=== PATIENT | male | born 1950 | race Caucasian/White ===

== ENCOUNTER 2021-06-16 01:04 | Day surgery (SDC) | payer MEDICARE, OTHER, SELFPAY ==
[2021-05-30 14:22] VITALS: BMI 29.7
--- NOTE | 2021-06-15 13:24 | PM.HPGS ---
History of Present Illness History of Present Illness Consent: Risks, benefits, and alternatives have been discussed and questions answered. Patient agrees to proceed with procedure. Chief complaint: hx of polyps Narrative: Hunter Reid is a 70 year old male Here for colon cancer screening. He had 5 polyps removed about 3 years ago. Review of Systems Review of Systems: All systems reviewed & are unremarkable except as noted in HPI and below PMFSH Social History Social History Smoking status: Never smoker Living arrangements: with family Spiritual care concerns: No Meds Home Medications and Allergies Home Medications Medication Instructions Recorded Confirmed Type cyanocobalamin (vitamin B-12) 2,000 mcg PO DAILY 05/30/21 06/16/21 History [Vitamin B-12] folic acid 5 mg PO QAM 05/30/21 06/16/21 History gabapentin 600 mg PO TID 05/30/21 06/16/21 History metformin 1,000 mg PO BID 05/30/21 06/16/21 History methotrexate sodium 25 mg PO WEEKLY 05/30/21 06/16/21 History multivitamin 1 tablet PO DAILY 05/30/21 06/16/21 History pantoprazole 40 mg PO DAILY 05/30/21 06/16/21 History prochlorperazine maleate 10 mg PO TID PRN 05/30/21 06/16/21 History vit A-vit C-vit [id number] [Eye 1 tablet PO DAILY 05/30/21 06/16/21 History Vitamin and Minerals] Allergies Allergy/AdvReac Type Severity Reaction Status Date / Time amoxicillin Allergy Unknown Nausea and Verified 06/16/21 06:40 Vomiting clavulanic acid Allergy Unknown Nausea and Verified 06/16/21 06:40 Vomiting Penicillins Allergy Unknown Unknown Verified 06/16/21 06:40 Exam Resp: Auscultation: clear to auscultation bilaterally Cardio: Rate: regular rate Rhythm: regular rhythm GI: GI Palp: Yes Soft to palpation and No Tenderness to palpation present (GI) Assessment and Plan Assessment and plan (1) Colon cancer screening: Code(s): Z12.11 - Encounter for screening for malignant neoplasm of colon Status: Acute Assessment and Plan: Colonoscopy with possible biopsy or polypectomy or cautery or injection of substances.
[2021-06-16 06:41] VITALS: BP 135/77; PULSE 80; RESP 17; TEMP 36.1; O2SAT 95; BMI 30.1
[2021-06-16 06:41] LABS: Glucose Point of Care 114 mg/dl (65-105)
[2021-06-16] MEDS: LACTATED RINGERS 1,000 ML 150 ML IV CONT (06:45)
--- NOTE | 2021-06-16 07:25 | WPDANESEPPF ---
Anes - Initial Pre Proc Eval Procedure: Operation Date: 06/16/21 07:30 Proposed Procedures p Screening Colonoscopy - Manuel Herrmann MD Date/Time: 06/16/21 07:25 Surgeon: Manuel Herrmann MD Pre Op Diagnosis: hx of polyps Patient Data Age: 70 Gender: M Height: 1.8 m Weight: 97.9 kg Last Vital Signs Temp 97 F L 06/16/21 06:41 Pulse 80 06/16/21 06:41 Resp 17 06/16/21 06:41 BP 135/77 06/16/21 06:41 Pulse Ox 95 06/16/21 06:41 Allergies Allergy/AdvReac Type Severity Reaction Status Date / Time amoxicillin Allergy Unknown Nausea and Verified 06/16/21 06:40 Vomiting clavulanic acid Allergy Unknown Nausea and Verified 06/16/21 06:40 Vomiting Penicillins Allergy Unknown Unknown Verified 06/16/21 06:40 Home Medications Medication Instructions Recorded Confirmed Type cyanocobalamin (vitamin B-12) 2,000 mcg PO DAILY 05/30/21 06/16/21 History [Vitamin B-12] folic acid 5 mg PO QAM 05/30/21 06/16/21 History gabapentin 600 mg PO TID 05/30/21 06/16/21 History metformin 1,000 mg PO BID 05/30/21 06/16/21 History methotrexate sodium 25 mg PO WEEKLY 05/30/21 06/16/21 History multivitamin 1 tablet PO DAILY 05/30/21 06/16/21 History pantoprazole 40 mg PO DAILY 05/30/21 06/16/21 History prochlorperazine maleate 10 mg PO TID PRN 05/30/21 06/16/21 History vit A-vit C-vit [id number] [Eye 1 tablet PO DAILY 05/30/21 06/16/21 History Vitamin and Minerals] Laboratory Tests 06/16/21 06:37 POC Capillary Glucose 114 mg/dl H mg/dl (65-105) Patient hx anesthesia problems: none Family hx anesthesia problems: none Results Review: All pre-operative results and documents have been reviewed as part of the pre-operative evaluation. PMFSH Social History Social History Smoking status: Never smoker Living arrangements: with family Spiritual care concerns: No Anes - Eval Final PreProcedure Day of Procedure 06/16/21 07:25 Patient weight: obese Heart: regular rate and rhythm Lungs: clear to auscultation Airway: Mallampati scale class II Neurological: alert and oriented Last oral intake: >/= 8 hours ASA classification: III Emergent: no Anesthetic plan: proceed Anesthesia type and monitoring: general GIVS and standard monitoring Results Review: All pre-operative results and documents have been reviewed as part of the pre-operative evaluation. Informed Consent: The patient's anesthetic plan and its attendant risks and benefits were discussed with the patient/family/POA. Questions were solicited and answers provided to the satisfaction of the patient/family/POA.
[2021-06-16 07:56] VITALS: BP 129/85; PULSE 78; RESP 17; O2SAT 97
[2021-06-16 08:00] VITALS: BP 132/86; PULSE 77; RESP 19; O2SAT 98
[2021-06-16 08:10] VITALS: BP 140/90; PULSE 73; RESP 15; O2SAT 95
== END 2021-06-16 08:33 | disposition home or self-care (01) ==
PROVIDERS: PCP Internal Medicine; Visit Provider Internal Medicine Gastroenterology
PROC: 0DJD8ZZ Inspection of Lower Intestinal Tract, Via Natural or Artificial Opening Endoscopic (ICD-10-PCS; CPT 45378; principal; 2021-06-16 07:30)
DX: Z12.11 Encounter for screening for malignant neoplasm of colon (principal); Z86.010 Personal history of colon polyps; Z79.84 Long term (current) use of oral hypoglycemic drugs; E66.9 Obesity, unspecified; Z68.30 Body mass index [BMI] 30.0-30.9, adult
CPT/HCPCS: G0105; 82948; J2704; J7120

== ENCOUNTER 2023-01-09 14:14 | Outpatient (CLI) | payer MEDICARE, OTHER, SELFPAY ==
[2023-01-09 14:31] LABS: Basophils Percent Auto 0.4 % (0.2-1.2); Eosinophils Absolute Auto 0.1 K/mm3 (0-0.3); Eosinophils Percent Auto 2.1 % (0-4.4); Hematocrit 37.1 % (42.0-52.0); Hemoglobin 12.7 g/dL (14.0-18.0); Immature Granulocyte Absolute 0.02 K/mm3 (0.00-0.031); Immature Granulocyte Percent A 0.3 % (0-0.5); Lymphocytes Absolute Auto 1.24 K/mm3 (0.9-3.2); Lymphocytes Percent Auto 18.5 % (18.3-44.2); Mean Corpuscular HGB Conc 34.2 g/dl (32-36); Mean Corpuscular Hemoglobin 31.8 pg (26-34); Monocytes Absolute Auto 0.4 K/mm3 (0.1-0.6); Monocytes Percent Auto 6.4 % (2.6-8.5); Neutrophils Absolute Auto 4.9 K/mm3 (1.3-6.7); Neutrophils Percent Auto 72.3 % (45.5-73.1); Platelet Count Result 89 k/mm3 (150-375); Red Blood Count 3.99 M/mm3 (4.6-6.20); Red Cell Distribution Width 13.4 % (11.5-14.5); White Blood Count 6.7 K/mm3 (4.5-10.0)
[2023-01-09 14:59] LABS: Alanine Aminotransferase 52 U/L (6-50); Albumin Level 4.3 g/dL (3.5-5.1); Alkaline Phosphatase 163 U/L (38-126); Anion Gap 8 mmol/L (8-16); Aspartate Amino Transferase 39 U/L (17-59); Bilirubin,Total 0.7 mg/dL (0.2-1.3); Blood Urea Nitrogen 11 mg/dL (9-20); Calcium 8.8 mg/dL (8.4-10.2); Carbon Dioxide 29 mmol/L (22-30); Chloride 98 mmol/L (98-107); Estimated Glomerular Filt Rate > 60; Glucose 303 mg/dL (65-110); Potassium 3.9 mmol/L (3.4-5.0); Sodium 135 mmol/L (137-145)
[2023-01-09 15:16] LABS: Iron 69 ug/dL (49-181)
[2023-01-09 15:26] LABS: Percent Iron Saturation 20 % (20-50)
[2023-01-09 16:04] LABS: Folic Acid > 20.0 ng/mL (2.76->20)
== END 2023-01-09 14:15 | disposition home or self-care (01) ==
LOC: ANHLAB 14:18
PROVIDERS: PCP Internal Medicine; Visit Provider Internal Medicine Hematology & Oncology
DX: D64.9 Anemia, unspecified (principal); D68.59 Other primary thrombophilia
CPT/HCPCS: 36415; 80053; 82607; 82728; 82746; 83540; 83550; 85025; 86023

== ENCOUNTER 2023-01-29 09:05 | Outpatient (CLI) | payer MEDICARE, OTHER, SELFPAY ==
--- NOTE | ~2023-01-29 | US_ITS ---
US abdomen complete DATE: 01/29/2023 09:49 INDICATION: Pancytopenia TECHNIQUE: Real-time imaging and Doppler analysis of the abdomen COMPARISON: 04/13/2018 right upper quadrant abdominal ultrasound examination FINDINGS: Hepatic steatosis. No hepatic space-occupying mass lesion is evident. Normal hepatopedal po rtal venous flow direction. No evidence of gallstones or gallbladder wall thickening. Negative sonographic Bautista's sign. There is splenomegaly, the spleen measuring up to 14 cm dimension. Approximately 2 cm upper pole left renal cyst. The kidneys are otherwise unremarkable. No hydronephro sis. Normal caliber of the abdominal aorta. The inferior vena cava is unremarkable. IMPRESSION: Splenomegaly Hepatic steatosis 2 cm left renal cyst Reviewed, dictated and finalized at [facility]. Reviewed, dictated and finalized at [facility].
== END 2023-01-29 09:06 | disposition home or self-care (01) ==
PROVIDERS: PCP Internal Medicine; Visit Provider Internal Medicine Hematology & Oncology
DX: D69.59 Other secondary thrombocytopenia (principal); R16.1 Splenomegaly, not elsewhere classified; K76.0 Fatty (change of) liver, not elsewhere classified; N28.1 Cyst of kidney, acquired
CPT/HCPCS: 76700

== ENCOUNTER 2023-08-12 14:25 | Outpatient (CLI) | payer MEDICARE, OTHER, SELFPAY ==
[2023-08-12 14:41] LABS: Basophils Percent Auto 0.3 % (0.2-1.2); Eosinophils Absolute Auto 0.1 K/mm3 (0-0.3); Eosinophils Percent Auto 1.5 % (0-4.4); Hematocrit 37.3 % (42.0-52.0); Hemoglobin 12.5 g/dL (14.0-18.0); Immature Granulocyte Absolute 0.03 K/mm3 (0.00-0.031); Immature Granulocyte Percent A 0.5 % (0-0.5); Lymphocytes Percent Auto 19.4 % (18.3-44.2); Mean Corpuscular HGB Conc 33.5 g/dl (32-36); Mean Corpuscular Hemoglobin 31.6 pg (26-34); Mean Corpuscular Volume 94.2 fl (80-100); Mean Platelet Volume 8.8 fl (7.4-10.4); Monocytes Absolute Auto 0.4 K/mm3 (0.1-0.6); Monocytes Percent Auto 5.8 % (2.6-8.5); Neutrophils Absolute Auto 4.5 K/mm3 (1.3-6.7); Neutrophils Percent Auto 72.5 % (45.5-73.1); Platelet Count Result 91 k/mm3 (150-375); Red Blood Count 3.96 M/mm3 (4.6-6.20); Red Cell Distribution Width 13.2 % (11.5-14.5); White Blood Count 6.2 K/mm3 (4.5-10.0)
[2023-08-12 14:47] LABS: Blood Urea Nitrogen 9 mg/dL (8-26); Carbon Dioxide 29 mmol/L (22-30); Chloride 99 mmol/L (98-109); Estimated Glomerular Filt Rate > 60; Glucose 181 mg/dL (70-105); Ionized Calcium (POC) 1.24 mmol/L (1.11-1.31); Potassium 3.7 mmol/L (3.5-4.9); Sodium 140 mmol/L (138-146)
[2023-08-12 19:33] LABS: Alanine Aminotransferase 35 U/L (6-50); Albumin Level 4.2 g/dL (3.5-5.1); Alkaline Phosphatase 125 U/L (38-126); Anion Gap 5 mmol/L (8-16); Aspartate Amino Transferase 30 U/L (17-59); Bilirubin,Total 0.7 mg/dL (0.2-1.3); Blood Urea Nitrogen 10 mg/dL (9-20); Calcium 9.2 mg/dL (8.4-10.2); Carbon Dioxide 30 mmol/L (22-30); Chloride 104 mmol/L (98-107); Estimated Glomerular Filt Rate > 60; Glucose 181 mg/dL (65-110); Potassium 3.9 mmol/L (3.4-5.0); Sodium 139 mmol/L (137-145)
== END 2023-08-12 14:26 | disposition home or self-care (01) ==
LOC: ANHLAB 14:28
PROVIDERS: PCP Internal Medicine; Visit Provider Internal Medicine Hematology & Oncology
DX: D69.59 Other secondary thrombocytopenia (principal)
CPT/HCPCS: 36415; 80047; 80053; 85025

== ENCOUNTER 2023-11-07 06:02 | Day surgery (SDC) | payer MEDICARE, OTHER, SELFPAY ==
[2023-09-09 13:36] VITALS: BMI 29.1
[2023-11-07 06:56] LABS: Glucose Point of Care 130 mg/dl (65-105)
--- NOTE | 2023-11-07 07:09 | PM.HPGS ---
History of Present Illness History of Present Illness Consent: Risks, benefits, and alternatives have been discussed and questions answered. Patient agrees to proceed with procedure. Chief complaint: Personal history of colonic polyps Narrative: Hunter Reid is a 73 year old male colonoscopy. Patient has a history of colon polyps identified in 2019. Patient reports his current weight appetite and bowel movements are normal. Patient denies abdominal pain. He has had no bleeding. Family history noncontributory. Past medical history is significant for diabetes and fatty liver. Review of Systems Review of Systems: Review of systems is noncontributory. [facility] Social History Social History Smoking status: Never smoker Alcohol intake: never Substance use: never Substance use type: does not use Living arrangements: with family Spiritual care concerns: No Meds Home Medications and Allergies Home Medications Medication Instructions Recorded Confirmed Type cyanocobalamin (vitamin B-12) 2,000 mcg PO DAILY 05/30/21 11/07/23 History 2,000 mcg tablet,extended release (Vitamin B-12 ER) folic acid 1 mg tablet 5 mg PO QAM 05/30/21 11/07/23 History gabapentin 600 mg tablet 600 mg PO TID 05/30/21 11/07/23 History metformin 1,000 mg tablet 1,000 mg PO BID 05/30/21 11/07/23 History multivitamin 1 tablet PO DAILY 05/30/21 11/07/23 History pantoprazole 40 mg tablet,delayed 40 mg PO DAILY 05/30/21 11/07/23 History release vit A 7,160 unit-vit C 113 mg-vit 1 tablet PO DAILY 05/30/21 11/07/23 History E 100 wvbp-qrmi-npbbas tablet insulin glargine 100 unit/mL 10 unit subcut QPM 09/05/23 11/07/23 History subcutaneous solution (Lantus U-100 Insulin) losartan 50 mg tablet 50 mg PO DAILY 09/05/23 11/07/23 History atorvastatin 20 mg tablet 20 mg PO DAILY 10/25/23 11/07/23 History sodium,potassium,mag sulfates 17.5 See Rx Instructions PO .COMPLEX 10/25/23 11/07/23 Rx gram-3.13 gram-1.6 gram oral soln #354 mL (Suprep Bowel Prep Kit) Allergies Allergy/AdvReac Type Severity Reaction Status Date / Time amoxicillin Allergy Unknown Nausea and Verified 11/07/23 06:26 Vomiting clavulanic acid Allergy Unknown Nausea and Verified 11/07/23 06:26 Vomiting Penicillins Allergy Unknown Unknown Verified 11/07/23 06:26 Exam Narrative: Physical exam reveals patient to be alert. Vital signs stable. HEENT exam is unremarkable. Patient is anicteric. Lungs are clear to auscultation and percussion. Heart is without murmur or extra sounds. Abdomen bowel sounds are present soft nontender with no organomegaly. Digital external rectal exam normal. Assessment and Plan Assessment and plan (1) Personal history of colonic polyps: Code(s): Z86.010 - Personal history of colonic polyps Status: Acute Assessment and Plan: Patient has a prior history of colon polyps performed by Dr. Staples in 2019. Plan for surveillance colonoscopy now and consider this at 5 year intervals.
--- NOTE | 2023-11-07 07:23 | WPDANESEPPF ---
Anes - Initial Pre Proc Eval Procedure: Operation Date: 11/07/23 07:30 Proposed Procedures p Diagnostic Colonoscopy - Geovanny Simon MD Date/Time: 11/07/23 07:23 Surgeon: Geovanny Simon MD Pre Op Diagnosis: Personal history of colonic polyps Patient Data Age: 73 Gender: M Height: 1.8 m Weight: 95.5 kg Allergies Allergy/AdvReac Type Severity Reaction Status Date / Time amoxicillin Allergy Unknown Nausea and Verified 11/07/23 06:26 Vomiting clavulanic acid Allergy Unknown Nausea and Verified 11/07/23 06:26 Vomiting Penicillins Allergy Unknown Unknown Verified 11/07/23 06:26 Home Medications Medication Instructions Recorded Confirmed Type cyanocobalamin (vitamin B-12) 2,000 mcg PO DAILY 05/30/21 11/07/23 History 2,000 mcg tablet,extended release (Vitamin B-12 ER) folic acid 1 mg tablet 5 mg PO QAM 05/30/21 11/07/23 History gabapentin 600 mg tablet 600 mg PO TID 05/30/21 11/07/23 History metformin 1,000 mg tablet 1,000 mg PO BID 05/30/21 11/07/23 History multivitamin 1 tablet PO DAILY 05/30/21 11/07/23 History pantoprazole 40 mg tablet,delayed 40 mg PO DAILY 05/30/21 11/07/23 History release vit A 7,160 unit-vit C 113 mg-vit 1 tablet PO DAILY 05/30/21 11/07/23 History E 100 yqyh-haal-jmnotx tablet insulin glargine 100 unit/mL 10 unit subcut QPM 09/05/23 11/07/23 History subcutaneous solution (Lantus U-100 Insulin) losartan 50 mg tablet 50 mg PO DAILY 09/05/23 11/07/23 History atorvastatin 20 mg tablet 20 mg PO DAILY 10/25/23 11/07/23 History sodium,potassium,mag sulfates 17.5 See Rx Instructions PO .COMPLEX 10/25/23 11/07/23 Rx gram-3.13 gram-1.6 gram oral soln #354 mL (Suprep Bowel Prep Kit) Laboratory Tests 11/07/23 06:49 POC Capillary Glucose 130 H mg/dl (65-105) Patient hx anesthesia problems: none Family hx anesthesia problems: none Results Review: All pre-operative results and documents have been reviewed as part of the pre-operative evaluation. [facility] Social History Social History Smoking status: Never smoker Alcohol intake: never Substance use: never Substance use type: does not use Living arrangements: with family Spiritual care concerns: No Anes - Eval Final PreProcedure Day of Procedure 11/07/23 07:23 Patient weight: overweight Heart: regular rate and rhythm Lungs: clear to auscultation Airway: Mallampati scale class II Neurological: alert and oriented Last oral intake: >/= 8 hours ASA classification: III Emergent: no Anesthetic plan: proceed Anesthesia type and monitoring: general GIVS and standard monitoring Results Review: All pre-operative results and documents have been reviewed as part of the pre-operative evaluation. Informed Consent: The patient's anesthetic plan and its attendant risks and benefits were discussed with the patient/family/POA. Questions were solicited and answers provided to the satisfaction of the patient/family/POA.
[2023-11-07] MEDS: LACTATED RINGERS 1,000 ML 150 ML IV CONT (07:27)
[2023-11-07 07:28] VITALS: BP 120/78; PULSE 77; RESP 20; TEMP 36.2; O2SAT 97
[2023-11-07 07:56] VITALS: BP 123/68; PULSE 83; RESP 20; O2SAT 98
[2023-11-07 08:06] VITALS: BP 101/66; PULSE 77; RESP 18; O2SAT 96
[2023-11-07 08:16] VITALS: BP 110/72; PULSE 71; RESP 18; O2SAT 95
--- NOTE | 2023-11-07 09:12 | WPDANESPN ---
Anes - Prog Note Post-Op Date/Time: 11/07/23 09:12 Cardiovascular status: normal Respiratory status: normal Airway patency: baseline Mental status: baseline Post-Op hydration status: normal Vital Signs: Last Vital Signs Temp 36.2 C L 11/07/23 07:28 Pulse 71 11/07/23 08:16 Resp 18 11/07/23 08:16 BP 110/72 11/07/23 08:16 Pulse Ox 95 11/07/23 08:16 O2 Del Method Room Air 11/07/23 08:16 Pain Score (VAS): 0 I/O: Intake & Output 11/06/23 11/07/23 11/07/23 23:59 07:59 15:59 Intake Total 350 50 Balance 350 50 11/07/23 06:49 POC Capillary Glucose 130 H Patient Feedback: Patient satisfied with anesthetic care.
== END 2023-11-07 08:35 | disposition home or self-care (01) ==
PROVIDERS: PCP Internal Medicine; Visit Provider Internal Medicine Gastroenterology
PROC: 0DJD8ZZ Inspection of Lower Intestinal Tract, Via Natural or Artificial Opening Endoscopic (ICD-10-PCS; CPT 45378; principal; 2023-11-07 07:30)
DX: Z86.010 Personal history of colon polyps (principal); D12.0 Benign neoplasm of cecum; K64.8 Other hemorrhoids
CPT/HCPCS: 45385

== ENCOUNTER 2023-11-07 07:00 | Outpatient (NON) | payer MEDICARE, OTHER, SELFPAY | END 2023-11-07 07:01 | disposition home or self-care (01) | PROVIDERS: PCP Internal Medicine; Visit Provider Internal Medicine Gastroenterology | DX: D12.0 Benign neoplasm of cecum (principal) | CPT/HCPCS: 88305 ==

== ENCOUNTER 2023-12-01 13:59 | Emergency (ER) | payer MEDICARE, OTHER, SELFPAY ==
--- NOTE | ~2023-12-01 | XR_ITS ---
EXAMINATION: XR chest 1V Exam Date/Time: 12/01/2023 16:34 CDT HISTORY: cp Comparison: None. RESULT: Lines, tubes, and devices: None. Lungs and pleura: Clear. Cardiomediastinal silhouette: Unremarkable. Other: No acute osseous or upper abdominal finding. IMPRESSION: No acute cardiopulmonary process. Reviewed, dictated and finalized at [facility].
--- NOTE | ~2023-12-01 | CT_ITS ---
EXAMINATION: CT abdomen pelvis w con DATE: 12/01/2023 16:39 INDICATION: rectal bleeding TECHNIQUE: Computed tomography (CT) of the abdomen and pelvis was performed with 100 mL Omnipaque-350 intravenous contrast. Automated exposure control and iterative reconstruction technique were employe d. The dose-length product was 1056.88 mGy-cm. COMPARISON: Ultrasound abdomen 01/29/2023, report only. FINDINGS: Lower thorax: 8 mm pleural-based right lower lobe pulmonary nodule. Liver: Diffusely low-density parenchyma. Biliary/Gallbladder: Partially contracted gallbladder. Gallstone. No inflammatory changes. No bile du ct dilation. Pancreas: No mass or duct dilation. Spleen: Enlarged. Multiple splenic cysts or hemangiomas. Adrenals:No mass. Kidneys: No suspicious mass, obstructing stone, or hydronephrosis. Simple left midpole cyst. GI tract: No small or large bowel dilation. Normal appendix. Mesentery/Peritoneum: No ascites, mass, or free air. Retroperitoneum: No mass. Atherosclerotic abdominal aortic and/or arterial calcifications. Pelvis: Moderate urinary bladder wall thickening. Prostatomegaly.. Soft Tissues: Soft tissues and body wall unremarkable. Bones: No acute osseous finding. IMPRESSION: 8 mm right lower lobe pulmonary nodule, recommend follow-up low-dose noncontrast CT of the chest in 6 -12 months. Hepatic steatosis. Splenomegaly. Cystitis versus bladder wall thickening from chronic outlet obstruction. Reviewed, dictated and finalized at [facility]. IMPRESSION: 8 mm right lower lobe pulmonary nodule, recommend follow-up low-dose noncontras t CT of the chest in 6-12 months. Hepatic steatosis. Splenomegaly. Cystitis versus bladder wall thickening from chronic outlet obstruction.
[2023-12-01 14:01] VITALS: BP 125/77; PULSE 79; RESP 16; TEMP 36.2; O2SAT 98
--- NOTE | 2023-12-01 14:05 | ECG_ITS ---
Measurements Intervals [place] Rate: 79 P: 61 [place]: 176 QRS: 42 QRSD: 90 T: 78 QT: 347 QTc: 382 Interpretive Statements SINUS RHYTHM INDETERMINATE AXIS NORMAL ECG SEE SCANNED COPY FOR SIGNATURE MTDD
[2023-12-01 15:15] VITALS: BP 121/70; PULSE 80; RESP 18; O2SAT 96
--- NOTE | 2023-12-01 15:51 | ED.GENADULT ---
HPI - General Adult General Chief complaint: GI Bleed Stated complaint: rectal bleeding Time Seen by Provider: 12/01/23 15:05 History of Present Illness HPI narrative: 73-year-old male presenting to the emergency department for evaluation of bright red blood per rectum. Patient states that he does have a history of internal hemorrhoids. Patient had a scope by Dr. Clement are November 06. Patient states last weekend he did have a few episodes bright red blood per rectum but the symptoms resolved on Saturday. Patient had no bleeding throughout the week. Today patient had a bowel movement and passed some blood, patient had a 2nd bowel movement where he passed stool and passed a small amount of blood. Since being in the emergency department patient states he has not passed any blood. After having some lightheaded and dizziness after the 1st episode patient had onset of some substernal chest pain that lasted approximately 10-12 minutes. At this time patient denies any abdominal pain denies any chest pain. Patient has no active rectal bleeding. Related Data Home Medications Medication Instructions Recorded Confirmed cyanocobalamin (vitamin B-12) 2,000 mcg PO DAILY 05/30/21 11/07/23 2,000 mcg tablet,extended release (Vitamin B-12 ER) folic acid 1 mg tablet 5 mg PO QAM 05/30/21 11/07/23 gabapentin 600 mg tablet 600 mg PO TID 05/30/21 11/07/23 metformin 1,000 mg tablet 1,000 mg PO BID 05/30/21 11/07/23 multivitamin 1 tablet PO DAILY 05/30/21 11/07/23 pantoprazole 40 mg tablet,delayed 40 mg PO DAILY 05/30/21 11/07/23 release vit A 7,160 unit-vit C 113 mg-vit 1 tablet PO DAILY 05/30/21 11/07/23 E 100 mmnp-uivc-xcmsik tablet insulin glargine 100 unit/mL 10 unit subcut QPM 09/05/23 11/07/23 subcutaneous solution (Lantus U-100 Insulin) losartan 50 mg tablet 50 mg PO DAILY 09/05/23 11/07/23 atorvastatin 20 mg tablet 20 mg PO DAILY 10/25/23 11/07/23 Allergies Allergy/AdvReac Type Severity Reaction Status Date / Time amoxicillin Allergy Unknown Nausea and Verified 12/01/23 15:21 Vomiting clavulanic acid Allergy Unknown Nausea and Verified 12/01/23 15:21 Vomiting Penicillins Allergy Unknown Unknown Verified 12/01/23 15:21 Review of Systems Review of Systems: All systems reviewed & are unremarkable except as noted in HPI and below PMFSH Social History Social History Smoking status: Never smoker Alcohol intake: never Substance use: never Substance use type: does not use Living arrangements: with family Spiritual care concerns: No Exam Narrative: APPEARANCE: Well appearing, no pain, no distress, well-nourished. HEAD: normocephalic, atraumatic. EYES: PERRLA/EOMI, conjunctivae clear. NOSE: Normal no drainage EARS:TMS clear with good light reflex. THROAT: Pharynx clear, no exudate. NECK: Supple. No adenopathy, no masses. RESPIRATORY: Airway patent, respirations nonlabored. Clear to auscultation bilaterally, no rales, rhonchi, wheezing. CARDIOVASCULAR: Regular rate and rhythm without murmurs rubs or gallops. ABDOMINAL: Soft, nontender, nondistended, normal bowel sounds MUSCULOSKELETAL: Moves all extremities. Strength/ROM intact, No edema, No calf tenderness. Rectal: Small amount of blood on the digital rectal exam NEURO: Alert. Cranial nerves II through XII intact. Good gait. Good coordination SKIN: Warm, dry. Normal Color PSYCHIATRIC: Normal affect/mood. Course Vital Signs Vital signs: Vital Signs Temperature 97.1 F L 12/01/23 14:01 Pulse Rate 79 12/01/23 14:01 Respiratory Rate 16 12/01/23 14:01 Blood Pressure 125/77 12/01/23 14:01 Pulse Oximetry 98 12/01/23 14:01 Temperature 97.1 F L 12/01/23 14:01 Pulse Rate 73 12/01/23 18:42 Respiratory Rate 13 12/01/23 18:42 Blood Pressure 134/86 12/01/23 18:42 Pulse Oximetry 98 12/01/23 18:42 Medical Decision Making MDM Narrative Medical decis
[2023-12-01 16:02] LABS: Basophils Percent Auto 0.5 % (0.2-1.2); Eosinophils Absolute Auto 0.2 K/mm3 (0-0.3); Eosinophils Percent Auto 3.6 % (0-4.4); Hemoglobin 12.3 g/dL (14.0-18.0); Immature Granulocyte Absolute 0.01 K/mm3 (0.00-0.031); Immature Granulocyte Percent A 0.2 % (0-0.5); Immature Platelet Fraction Pct 1.9 % (0.9-11.2); Lymphocytes Percent Auto 19.9 % (18.3-44.2); Mean Corpuscular HGB Conc 34.2 g/dl (32-36); Mean Corpuscular Hemoglobin 32.2 pg (26-34); Mean Corpuscular Volume 94.2 fl (80-100); Mean Platelet Volume 9.1 fl (7.4-10.4); Monocytes Absolute Auto 0.4 K/mm3 (0.1-0.6); Monocytes Percent Auto 6.7 % (2.6-8.5); Neutrophils Absolute Auto 3.8 K/mm3 (1.3-6.7); Neutrophils Percent Auto 69.1 % (45.5-73.1); Platelet Count Result 114 k/mm3 (150-375); Red Blood Count 3.82 M/mm3 (4.6-6.20); Red Cell Distribution Width 13.4 % (11.5-14.5); White Blood Count 5.5 K/mm3 (4.5-10.0)
[2023-12-01 16:13] LABS: Lactic Acid Reflex 1.6 mmol/L (0.7-2.0)
[2023-12-01 16:15] LABS: Alanine Aminotransferase 46 U/L (6-50); Alkaline Phosphatase 115 U/L (38-126); Anion Gap 6 mmol/L (4-12); Aspartate Amino Transferase 33 U/L (17-59); Bilirubin,Total 0.6 mg/dL (0.2-1.3); Blood Urea Nitrogen 12 mg/dL (9-20); Calcium 8.9 mg/dL (8.4-10.2); Carbon Dioxide 26 mmol/L (22-30); Chloride 104 mmol/L (98-107); Estimated CRCL calculation 62 ml/min; Estimated Glomerular Filt Rate > 60; Glucose 198 mg/dL (65-110); Lipase 120 U/L (23-300); Potassium 3.7 mmol/L (3.4-5.0); Sodium 136 mmol/L (137-145)
[2023-12-01 16:20] LABS: Appearance Urine Clear (Clear); Bilirubin Urine Negative (Negative); Blood Urine Negative (Negative); Color Urine Yellow (Yellow); Glucose Urine UA Negative (Negative); Ketones Urine Negative (Negative); Leukocyte Esterase Ur Negative LEU/UL (Negative); Nitrate Urine Negative (Negative); Protein Urine Negative (Negative); Specific Grav Ur 1.009 (1.001-1.035); Urobilinogen Urine 0.2 mg/dL (<2.0); pH Urine 5.5 (5.0-9.0)
[2023-12-01 16:22] LABS: Add Urine Microscopic? NO
--- NOTE | 2023-12-01 16:24 | PC.NURSE ---
pt to CT scan via stretcher at this time
[2023-12-01 16:26] LABS: Troponin I < 0.012 ng/mL (0.000-0.034)
[2023-12-01 16:46] LABS: INR 1.1; Partial Thromboplastin Time 32.6 Seconds (22.3-36.8); Prothrombin Time 15.1 Seconds (11.1-14.7)
[2023-12-01 17:26] VITALS: BP 121/78; PULSE 73; RESP 15; O2SAT 98
[2023-12-01 18:07] VITALS: BP 125/78; PULSE 73; RESP 12; O2SAT 99
[2023-12-01 18:42] VITALS: BP 134/86; PULSE 73; RESP 13; O2SAT 98
== END 2023-12-01 18:47 | disposition home or self-care (01) ==
PROVIDERS: Emergency Provider Emergency Medicine; PCP Internal Medicine
DX: K62.5 Hemorrhage of anus and rectum (principal); E11.9 Type 2 diabetes mellitus without complications; Z79.4 Long term (current) use of insulin; Z79.84 Long term (current) use of oral hypoglycemic drugs; R91.1 Solitary pulmonary nodule; R16.1 Splenomegaly, not elsewhere classified; K76.0 Fatty (change of) liver, not elsewhere classified; R93.41 Abnormal radiologic findings on diagnostic imaging of renal pelvis, ureter, or bladder
CPT/HCPCS: 36415; 71045; 74177; 80053; 81003; 83605; 83690; 84484; 85025; 85055; 85610; 85730; 86850; 86900; 86901; 93005; 99284; Q9967

== ENCOUNTER 2023-12-16 14:54 | Outpatient (CLI) | payer MEDICARE, OTHER, SELFPAY ==
--- NOTE | ~2023-12-16 | CT_ITS ---
EXAMINATION:CT diagnostic chest wo con DATE: 12/16/2023 15:13 INDICATION: Solitary pulmonary nodule. TECHNIQUE: Computed tomography (CT) of the chest was performed without intravenous contrast. Automate d exposure control and iterative reconstruction technique were employed. The dose-length product (DLP ) was 233.90 mGy-cm. COMPARISON: CT abdomen and pelvis 12/01/2023 FINDINGS: There is mild scarring at the lung apices. There is a 7 mm nodule in right upper lobe. Ther e is a 7 mm nodule in right lower lobe. No pleural effusion. The heart size is normal. There are chauncey nary artery calcifications. No pericardial effusion. There is mild bilateral gynecomastia. There is e ctasia of ascending aorta measuring 4.1 cm. There are gallstones in the gallbladder, which is normal in size. There is mild thoracic spondylosis. IMPRESSION: 1. Pulmonary nodules measuring up to 7 mm, probably benign. Noncontrast low-dose chest CT is recommen ded in 6 months. Reviewed, dictated and finalized at [facility]. IMPRESSION: 1. Pulmonary nodules measuring up to 7 mm, probably benign. Noncontrast low-dos e chest CT is recommended in 6 months.
== END 2023-12-16 14:55 | disposition home or self-care (01) ==
LOC: ANHIMG 14:55
PROVIDERS: PCP Internal Medicine; Visit Provider Physician Assistant
DX: R91.1 Solitary pulmonary nodule (principal)
CPT/HCPCS: 71250

== ENCOUNTER 2024-05-29 10:04 | Outpatient (CLI) | payer MEDICARE, SELFPAY ==
--- NOTE | ~2024-05-29 | CT_ITS ---
CT Scan of the Chest without Contrast: Clinical Indication: Pulmonary nodule Technique: Contiguous sections were acquired throughout the chest without intravenous contrast. Dose reduction technique was used on this scan by utilizing automated exposure control and iterative recon struction technique. The dose-length product (DLP) was 364.12 mGy-cm. COMPARISON: 12/16/2023 Findings: There is no evidence of any significant mediastinal, hilar or axillary lymphadenopathy. Coronary kassy ry calcifications are present. There is no evidence of pleural or pericardial effusion. Stable 8 mm round nodule at the medial right upper lobe (axial image 45). Stable 3 mm right lower lob e pulmonary nodule (axial image 81). Stable 8 mm right basilar pulmonary nodule (axial image 103). Images through the upper abdomen reveal small calcified gallstone. Impression: Stable pulmonary nodules, as detailed above. Reviewed, dictated and finalized at location . Impression: Stable pulmonary nodules, as detailed above.
== END 2024-05-29 10:05 | disposition home or self-care (01) ==
LOC: ANHIMG 10:06
PROVIDERS: PCP Internal Medicine; Visit Provider Physician Assistant
DX: R91.1 Solitary pulmonary nodule (principal)
CPT/HCPCS: 71250

== ENCOUNTER 2024-08-07 10:05 | Outpatient (CLI) | payer MEDICARE, SELFPAY ==
[2024-08-07 10:29] LABS: Basophils Percent Auto 0.3 % (0.2-1.2); Eosinophils Absolute Auto 0.2 K/mm3 (0-0.3); Eosinophils Percent Auto 2.4 % (0-4.4); Hematocrit 38.4 % (42.0-52.0); Hemoglobin 12.8 g/dL (14.0-18.0); Immature Granulocyte Absolute 0.02 K/mm3 (0.00-0.031); Immature Granulocyte Percent A 0.3 % (0-0.5); Immature Platelet Fraction Pct 2.3 % (0.9-11.2); Lymphocytes Absolute Auto 1.26 K/mm3 (0.9-3.2); Lymphocytes Percent Auto 19.8 % (18.3-44.2); Mean Corpuscular HGB Conc 33.3 g/dl (32-36); Monocytes Absolute Auto 0.4 K/mm3 (0.1-0.6); Monocytes Percent Auto 5.8 % (2.6-8.5); Neutrophils Absolute Auto 4.5 K/mm3 (1.3-6.7); Neutrophils Percent Auto 71.4 % (45.5-73.1); Platelet Count Result 127 k/mm3 (150-375); Red Cell Distribution Width 13.7 % (11.5-14.5); White Blood Count 6.4 K/mm3 (4.5-10.0)
[2024-08-07 10:31] LABS: Blood Urea Nitrogen 14 mg/dL (8-26); Carbon Dioxide 27 mmol/L (22-30); Chloride 100 mmol/L (98-109); Estimated Glomerular Filt Rate > 60; Glucose 196 mg/dL (70-105); Ionized Calcium (POC) 1.21 mmol/L (1.11-1.31); Potassium 3.5 mmol/L (3.5-4.9); Sodium 141 mmol/L (138-146)
--- OUTSIDE RECORDS SUMMARY | 2024-08-07 12:28 | XMS_ITS | Continuity of Care Document ---
Author Organization [place] - [facility], [facility] [place] Address [address] [place] [address] Assessment No assessment recorded. Plan of Treatment Reminders Order Date Submit Date Provider Last Modified By Organization Details Last Modified Time Details Appointments None recorded . Lab lipid panel, serum 06/04/20 [email or web address] [facility], 2022 Shashank Mueller, [facility] [address], [place], [address], 4 16:46:11 CMP, serum or plasma 06/04/20 [email or web address] [facility], 2022 Shashank Mueller, [address], [place], [address], 4 16:46:11 HbA1c (hemoglo bin A1c), blood 024 06/04/20 [facility], 2022 Shashank Mueller, [facility] [address], [place], [address], 4 16:46:11 CBC w/ auto diff 024 06/04/20 24 [email or web address] [facility], 2022 Shashank Mueller, [address], [place], [address], 4 16:46:11 Referral None recorded . Procedures None recorded . Surgeries None recorded . Imaging None recorded . Medication Orders None recorded . Patient TargetsNo targets recorded. Patient Instructions Encounter Date Encounter Id Patient Instructions Last Modified By Organization Details Last Modified Time 06/04/2024 [id number] Follow-up for hypertension, hyperlipidemia, type 2 diabetes, GERD as well as obesity class one. Check blood work consistent with a hemoglobin A1c, CMP, CBC, lipid panel. Continue on current Rx follow-up in four months Follow Up: 4 Months Approximate Date: 10/02/2024 Portions of the record may have been created with voice recognition software. Occasional wrong-word or ? [id number]? substitutions may have occurred due to the inherent limitations of voice recognition software. Read the chart carefully and recognize, using context, where substitutions have occurred. [place] [id number] Not available 06/04/2024 16:48:26 Reason for Referral None Reported. Results Created Date Observation Date Name Description Value Unit Range Abnormal Flag Note LastModifiedBy Organization Detail LastModifiedTime 05/29/20 24 05/29/2024 CT, chest , w/o contr ast No observ ation record ed. [email or web address] [facility] [address] [facility] [address], [place], [address], 05/29/2024 13:28:13 Result Notes None recorded. Problems Name Problem SNOMED Code Status Onset Date Resolution Date Notes Provider Name and Address Organization Details Recorded Time Acute bronchitis 75435975 Active 2021 Not Available [facility] 4 05:07:49 Paronychia of toe of right foot 1334068615865 9102 Active 2020 Not Available [facility] 4 05:07:49 Avulsion of toenail of right foot 2535785040048 9102 Active 2020 Not Available [facility] 4 05:07:49 Insomnia 715041158 Active Not Available [facility] 4 05:07:49 Neuropathy due to diabetes mellitus 591382496 Active 2019 Not Available [facility] 4 05:07:49 Gastroesop hageal reflux disease 164261965 Active Not Available [facility] 4 05:07:49 Pure hyperchole sterolemia 654627089 Active 2017 Not Available [facility] 4 05:07:49 Subungual hematoma 595290509 Active 2020 Not Available [facility] 4 05:07:49 Low back pain 973719732 Active 2021 Not Available [facility] 4 05:07:49 Chest pain 44554145 Active Not Available [facility] 4 05:07:49 Type 2 diabetes mellitus without complicati on 316128614 Active 2018 Not Available [facility] 4 05:07:49 Subdural hemorrhage 19767776 Active 2018 Not Available [facility] 4 05:07:49 History of polyp of colon 318789858 Active Not Available [facility] 4 05:07:49 Uncontroll ed type 2 diabetes mellitus 733717831 Active 2018 Not Available [facility] 4 05:07:49 Essential hypertensi on 51219390 Active 2021 Not Available [facility] 4 05:07:49 Acute maxillary sinusitis 73165721 Active Not Available [facility] 4 05:07:49 Rheumatoid arthritis 94653478 Active 2017 Not Available [facility] 4 05:07:49 Sleep apnea 27661633 Active Not Available [facility] 4 05:07:49 Obstructiv e sleep apnea syndrome 56793591 Active 2018 Not Available [facility] 4 05:07:49 Neck pain 22798628 Active 2021 Not Available [facility] 4 05:07:49 Tinea pedis 0202108 Active 2022 Not Available [facility] 4 05:07:49 Steatosis of liver 332455545 Active 2022 Not Available [facility] 4 05:07:49 Nonalcohol ic steatohepa titis 273834742 Active 2022 Not Available [facility] 4 05:07:49 Acute sinusitis 62256972 Active 2022 Not Available [facility] 4 19:56:21 Disorder of prostate 50949773 Active 2023 Rodolfo Topete MD [address] [place] [address], [place] [address], [place], [address] , [facility] [employer] 4 16:24:07 Obese class I 7257621518717 07 Active 2023 Rodolfo Topete MD [address] [facility], [facility] [address], [place], [address] , [facility] [employer] [facility] 4 16:48:02 Problem Notes None recorded. Procedures Surgical History Date Name Laterality Status Provider Name and Address Organization Details Recorded Time 3 Medicare Wellness CPT Code, subsequent completed Kat Phelps RN [facility] [employer] [facility] 12/21/2022 15:36:33 3 Advanced Care Planning completed Kat Phelps RN [facility] [employer] [facility] 12/21/2022 15:38:14 Eye Surgery completed Not Available [facility] 10/24/2022 14:45:40 Imaging Results None recorded. Procedure Notes None recorded. Medical Equipment None Reported. Allergies Allergen ID Allergen Name Allergen Category Reaction Reaction Severity Criticality Documentation Date Start Date Code Code System Note Provider Name and Address Organization Details Recorded Time 59483 Medicinal product containin g penicilli n and acting as antibacte rial agent (product) medicatio n anaphylax is severe Not available 10/24/20222016 26791 05 SNOMED recei kvng from [place] son for tooth infec tion, went back to [place] with swell ing and was given a shot . Not Available [facility] 3 14:51:22 39477 metformin medicatio n diarrhea Not available [facility] 02/12/2023 6809 RxNorm Misti Ward CMA null, [facility] [employer] 3 14:04:46 Medications Name Sig Start Date Stop Date Status Note LastModified by Organization Details LastModified Time losartan 50 mg tablet TAKE 1 TABLET BY MOUTH EVERY DAY active Not Available Not Available No t Available cyclobenzap rine 10 mg tablet TAKE 1 TABLET BY MOUTH EVERY 8 HOURS NEEDED .CUT IN HALF IF TO SEDATING active Not Available Not Available No t Available amoxicillin 500 mg capsule Take 1 capsule 3 times a day by oral route for 10 days. 01/08 completed Not Available Not Available Not Available methocarbam ol 500 mg tablet 10/28 completed Not Available Not Available Not Available metformin 500 mg tablet TAKE 2 TABLETS BY MOUTH TWICE DAILY 2022 active Not Available Not Available Not Avai lable Tylenol-Cod eine #4 300 mg-60 mg tablet Take 1 tablet every 6 hours by oral route. 01/08 completed Not Available Not Available Not Available promethazin e-DM 6.25 mg-15 mg/5 mL oral syrup TAKE 5 ML BY MOUTH FOUR TIMES DAILY 03/30 completed Not Available Not Available Not Available gabapentin 600 mg tablet TAKE 1 TABLET BY MOUTH THREE TIMES DAILY active Not Available Not Available No t Available doxycycline hyclate 100 mg capsule TAKE 1 CAPSULE BY MOUTH TWICE DAILY FOR 7 DAYS 12/08 completed Not Available Not Available Not Available atorvastati n 20 mg tablet TAKE 1 TABLET BY MOUTH EVERY DAY active Not Available Not Available No t Available clindamycin HCl 300 mg capsule TAKE ONE CAPSULE BY MOUTH THREE TIMES DAILY UNTIL ALL TAKEN 03/01 completed Not Available Not Available Not Available azithromyci n 250 mg tablet TAKE 2 TABLETS (500 MG) BY ORAL ROUTE ONCE DAILY FOR 1 DAY THEN 1 TABLET (250 MG) BY ORAL ROUTE ONCE DAILY FOR 4 DAYS active Not Available Not Available No t Available alprazolam 1 mg tablet 08/11 completed Not Available Not Available Not Available fluconazole 150 mg tablet TAKE 1 TABLET BY MOUTH EVERY WEEK active Not Available Not Available No t Available benzonatate 200 mg capsule TAKE 1 CAPSULE BY MOUTH THREE TIMES DAILY NEEDED FOR COUGH 02/05 completed Not Available Not Available Not Available hydrocodone 5 mg-acetamin ophen 325 mg tablet Take 1 tablet every 6 hours by oral route. 01/06 completed Not Available Not Available Not Available prednisone 20 mg tablet TAKE 1 TABLET BY MOUTH EVERY DAY FOR 5 DAYS 03/30 completed Not Available Not Available Not Available fluorouraci l 5 % topical cream APPLY TO NOSE BID FOR 14 DAYS active Not Available Not Available No t Available prednisone 5 mg tablet TK 1 T PO BID 04/15 completed Not Available Not Available Not Available clindamycin HCl 150 mg capsule Take 1 capsule every 6 hours by oral route. 01/24 completed Not Available Not Available Not Available cyanocobala min (vit B-12) 1,000 mcg tablet Take 1 tablet every day by oral route. 2021 active Not Available Not Available Not Avai lable folic acid 5 mg capsule Take 1 capsule by oral route. 04/13 completed Not Available Not Available Not Available Nexium 40 mg capsule,del ayed release Take 1 capsule every day by oral route. 2012 active Not Available Not Available Not Avai lable prochlorper azine maleate 10 mg tablet TAKE 1 TABLET BY MOUTH THREE TIMES DAILY NEEDED active Not Available Not Available No t Available Tamiflu 75 mg capsule Take 1 capsule every day by oral route for 10 days. 02/18 completed Not Available Not Available Not Available sulfamethox azole 800 mg-trimetho prim 160 mg tablet TAKE 1 TABLET BY MOUTH TWICE DAILY FOR 10 DAYS 10/28 completed Not Available Not Available Not Available hydrocodone 10 mg-acetamin ophen 325 mg tablet TAKE 1 TO 2 TABLETS BY MOUTH EVERY 4 TO 6 HOURS NEEDED FOR PAIN active Not Available Not Available No t Available leflunomide 20 mg tablet TAKE 1 TABLET BY MOUTH EVERY MORNING 10/30 completed Not Available Not Available Not Available tramadol 50 mg tablet Take 1 tablet every 6 hours by oral route. active Not Available Not Available No t Available triamcinolo ne acetonide 0.1 % topical cream APPLY TWICE DAILY TO RASH ON BACK UP TO 2 WEEKS active Not Available Not Available No t Available glimepiride 2 mg tablet TAKE 1 TABLET BY MOUTH EVERY DAY TWICE A DAY 2023 active Not Available Not Available Not Avai lable pantoprazol e 20 mg tablet,loree yed release TK 1 T PO QD 10/28 completed Not Available Not Available Not Available ciclopirox 8 % topical solution APPLY TO TOENAIL EVERY NIGHT AT BEDTIME active Not Available Not Available No t Available potassium 99 mg tablet Take 1 tablet twice a day by oral route. 10/28 completed Not Available Not Available Not Available potassium chloride ER 20 mEq tablet,exte nded release(par t/cryst) 10/28 completed Not Available Not Available Not Available methotrexat e sodium 2.5 mg tablet TK 10 TS PO Q WEEK 06/26 completed Not Available Not Available Not Available prednisone 1 mg tablet 01/13 completed Not Available Not Available Not Available meclizine 25 mg tablet 01/24 completed Not Available Not Available Not Available baclofen 10 mg tablet Take 1 tablet 4 times a day by oral route. active Not Available Not Available No t Available benzonatate 100 mg capsule TAKE 1 CAPSULE BY MOUTH EVERY 8 HOURS NEEDED 03/30 completed Not Available Not Available Not Available glipizide ER 2.5 mg tablet, extended release 24 hr Take 1 tablet every day by oral route. 12/28 completed Not Available Not Available Not Available hydrocodone 7.5 mg-acetamin ophen 325 mg tablet One every six hours PRN for pain 01/06 completed Not Available Not Available Not Available cephalexin 500 mg capsule 01/13 completed Not Available Not Available Not Available pantoprazol e 40 mg tablet,loree yed release TAKE 1 TABLET BY MOUTH EVERY DAY active Not Available Not Available No t Available erythromyci n 5 mg/gram (0.5 %) eye ointment active Not Available Not Available Not Available metformin 1,000 mg tablet TAKE 1 TABLET BY MOUTH TWICE DAILY 12/28 completed Not Available Not Available Not Available clotrimazol e-betametha sone 1 %-0.05 % topical cream APPLY TOPICALLY TO THE AFFECTED AND SURROUNDI NG AREAS TWICE DAILY IN THE MORNING AND IN THE EVENING FOR 2 WEEKS active Not Available Not Available No t Available glimepiride 4 mg tablet Take 1 tablet twice a day by oral route. 01/25 completed Not Available Not Available Not Available lidocaine 5 % topical patch active Not Available Not Available Not Available gabapentin 300 mg capsule Take 1 capsule twice a day by oral route. 01/06 completed Not Available Not Available Not Available cephalexin 500 mg tablet 01/13 completed Not Available Not Available Not Available folic acid 1 mg tablet TAKE 5 TABLETS BY MOUTH EVERY MORNING active Not Available Not Available No t Available hydrochloro thiazide 25 mg tablet TK 1 T PO QD 08/11 completed Not Available Not Available Not Available mupirocin 2 % topical ointment 03/30 completed Not Available Not Available Not Available Levaquin 500 mg tablet Take 1 tablet every 24 hours by oral route. 01/08 completed Not Available Not Available Not Available ergocalcife rol (vitamin D2) 1,250 mcg (50,000 unit) capsule Take 1 capsule every week by oral route. 12/08 completed Not Available Not Available Not Available hydroxychlo roquine 200 mg tablet 01/06 completed Not Available Not Available Not Available Exelderm 1 % topical cream APPLY TO RASH TWICE DAILY FOR 1 MONTH active Not Available Not Available No t Available methylpredn isolone 4 mg tablets in a dose pack Take by oral route as per package insert 06/28 completed Not Available Not Available Not Available ketoconazol e 2 % topical cream APPLY TO RASH TWICE DAILY FOR 2 TO 4 WEEKS UNTIL CLEAR active Not Available Not Available No t Available metformin ER 500 mg tablet,exte nded release 24 hr TAKE 2 TABLETS BY MOUTH TWICE DAILY 2023 active Not Available Not Available Not Avai lable clotrimazol e 1 % topical cream APPLY TOPICALLY TO THE AFFECTED AND SURROUNDI NG AREAS TWICE DAILY IN THE MORNING AND IN THE EVENING active Not Available Not Available No t Available Ambien 10 mg tablet TAKE ONE TABLET BY MOUTH AT BEDTIME NEEDED FOR SLEEP 01/08 completed Not Available Not Available Not Available glipizide 5 mg tablet TAKE 1 TABLET BY MOUTH TWICE DAILY 05/08 completed Not Available Not Available Not Available Multivitami n 50 Plus tablet Take 1 tablet every day by oral route. 2021 active Not Available Not Available Not Avai lable pregabalin 50 mg capsule TAKE 1 CAPSULE BY MOUTH THREE TIMES DAILY 04/21 completed Not Available Not Available Not Available chlorhexidi ne gluconate 0.12 % mouthwash active Not Available Not Available No t Available folic acid 01/24 completed Not Available Not Available Not Available methotrexat e 10 tabs weekly 10/28 completed Not Available Not Available Not Available gabapentin 01/24 completed Not Available Not Available Not Available multivitami n 06/19 completed Not Available Not Available Not Available metformin ER 500 mg 24 hr tablet,exte nded release (gastric retention) Take 2 tablets twice a day by oral route. 05/08 completed Not Available Not Available Not Available Lantus Solostar U-100 Insulin 100 unit/mL (3 mL) subcutaneou s pen Inject 25 units every day by subcutane ous route at bedtime. 2023 active Not Available Not Available Not Avai lable metformin ER 1,000 mg 24 hr tablet,exte nded release (gastric reten.) Take 1 tablet twice a day by oral route. 04/03 completed Not Available Not Available Not Available glipizide ER 2.5 mg 24 hr tablet,exte nded release Take 1 tablet every day by oral route. 01/25 completed Not Available Not Available Not Available sodium,pota ssium,mag sulfates 17.5 gram-3.13 gram-1.6 gram oral soln active Not Available Not Available Not Available OneTouch Verio test strips USE TO CHECK BLOOD SUGARS EVERY DAY active Not Available Not Available No t Available methotrexat e 2.5 mg tablet Take 10 tablets every week by oral route as directed. 04/21 completed Not Available Not Available Not Available Easy Touch 32 gauge x 5/32 needle USE TO INJECT LANTUS active Not Available Not Available No t Available prochlorper azine 01/24 completed Not Available Not Available Not Available Vitamin B12 06/19 completed Not Available Not Available Not Available OneTouch Delica Plus Lancet 33 gauge USE TO CHECK BLOOD SUGAR EVERY DAY OR DIRECTED active Not Available Not Available No t Available Paxlovid 300 mg (150 mg x 2)-100 mg tablets in a dose pack TK 2 NIRMATREL VIR TS AND 1 RITONAVIR T TOGETHER PO BID FOR 5 DAYS active Not Available Not Available No t Available Vitals Date Recorded Body height Body weight Heart rate Body temperature Oxygen saturation Oxygen saturation in Arterial blood by Pulse oximetry Systolic blood pressure Diastolic blood pressure Provider Name and Address Organization Details Last Updated DateTime 4 180.34 cm 96713.1 4 g 89 /min 97 [degF] 97 % 97 % 130 mm[Hg] 72 mm[Hg] [facility] - [facility] [employer] 4 16:33:11 Social History Question Answer Notes LastModified by Organizat ion Details LastModified Time Tobacco Smoking Status Never Smoker Not Available [facility] 10/24/2022 14:45:24 Do You Have An Advance Directive? No [id number] Information not available 10/24/2022 What Is Your Level Of Alcohol Consumption? None MIGRATION.[id number] 01001 Information not available 10/24/2022 Are You Blind Or Do You Have Difficulty Seeing? No MIGRATION.11406 94207 Information not available 10/24/2022 Are You Deaf Or Do You Have Serious Difficulty Hearing? Yes Has Hearing Aids That Doesn't Like MIGRATION.07795 80457 Information not available 10/24/2022 What Type Of Diet Are You Following? REGULAR MIGRATION.95806 89208 Information not available 10/24/2022 Have There Been Any Changes To Your Family Or Social Situation? No MIGRATION.32828 [id number] Information not available 10/24/2022 What Is The Fluoride Status Of Your Home? Unknown MIGRATION.48480 [id number] Information not available 10/24/2022 Do You Use Insect Repellent Routinely? No MIGRATION.53331 58213 Information not available 10/24/2022 Where Do You Live? [place]House MIGRATION.29320 76582 Information not available 10/24/2022 Do You Have A Medical Power Of Balancing Machine Operator? No MIGRATION.42007 83292 Information not available 10/24/2022 What Was The Date Of Your Most Recent Tobacco Screening? 12/08/2021 MIGRATION.12801 [id number] Information not available 10/24/2022 Do You Have Any Pets? No MIGRATION.66332 88625 Information not available 10/24/2022 What Is Your Relationship Status? MIGRATION.42483 72260 Information not available 10/24/2022 Do You Use Your Seat Belt Or Car Seat Routinely? Yes MIGRATION.61335 89792 Information not available 10/24/2022 Do You Have Smoke And Carbon Monoxide Detectors In Your Home? Yes MIGRATION.04158 75368 Information not available 10/24/2022 Are You Passively Exposed To Smoke? No MIGRATION.98141 30554 Information not available 10/24/2022 Do You Use Sunscreen Routinely? No MIGRATION.48576 94155 Information not available 10/24/2022 Have You Recently Traveled Abroad? No MIGRATION.44027 19556 Information not available 10/24/2022 Do You Have Any Dietary Restrictions? No MIGRATION.59133 60116 Information not available 10/24/2022 Sex: Unknown Functional Status Question Answer Note LastModified by Organizat ion Details LastModified Time Do you have difficulty walking or climbing stairs? No MIGRATION.[id number] 026 Information not available 10/24/2022 Do you have transportation difficulties? No MIGRATION.[id number] 026 Information not available 10/24/2022 Are you able to walk? YESWOREST MIGRATION.4538626 026 Information not available 10/24/2022 Do you have difficulty doing errands alone? No MIGRATION.[id number] 026 Information not available 10/24/2022 Are you able to care for yourself? Yes MIGRATION.[id number] 026 Information not available 10/24/2022 Do you have difficulty dressing or bathing? No MIGRATION.[id number] 026 Information not available 10/24/2022 What is your exercise level? Occasional MIGRATION.[id number] 026 Information not available 10/24/2022 Mental Status Question Answer Note LastModified by Organizat ion Details LastModified Time Do you have difficulty concentrating, remembering or making decisions? No [id number].[id number] Information not available 10/24/2022 Family History Relationship Description Onset Age of this Age Resolved Age Notes LastModified by Organization Details LastModified Time Father Heart disease [id number] Not available 10/24/2022 14:45:40 Notes:Mother 85 hx of essential hypertension and CA of Lung Father 90 CA prostate and esophagus No brothers or sisters stroke-mother, grandmother Medical History Condition Response NERVE DISEASE N BLINDNESS N RHEUMATIC FEVER N KIDNEY STONES N BLADDER PROBLEMS N OTHER # 1 N POLIO N LUNG DISEASE/DISORDER N RADIATION / CHEMOTHERAPY N COPD N Other # 2 N BLOOD DISEASES N SURGERY N EAR OR HEARING PROBLEMS N MUMPS N BOWEL PROBLEMS N DEPRESSION (INCLUDING POST ) N STROKE/TIA N ULCERS N BENIGN PROSTATIC HYPERPLASIA N MEASLES N MYOCARDIAL INFARCTION N OBESITY N GERD/NAUSEA Y ANEURYSM N URINARY/BLADDER/KIDNEY PROBLEMS N INPATIENT PSYCH CARE N CORONARY ARTERY DISEASE (CAD) N ADDICTION CONCERNS N ENDOMETRIOSIS N Impotence N USE OF BLOOD THINNERS N SKIN PROBLEMS N GASTROINTESTINAL DISORDER N PERIPHERAL VASCULAR DISEASE N MUSCLE,JOINT OR BONE PROBLEMS N GASTROINTESTINAL BLEEDING N BLOOD CLOTS N ASTHMA N CATARACTS N ERECTILE DYSFUNCTION N VARICOSITIES N GI PROBLEMS N Low Testosterone N INFERTILITY N AIDS/HIV N LIVER DISEASE N MALE HYPOGONADISM N HYPERTENSION N Deficiency N ANXIETY DISORDER Y BLOOD TRANSFUSION N ANEMIA/BLOOD DISORDER N CHRONIC EAR INFECTIONS N BRONCHITIS N TUBERCULOSIS N GLAUCOMA N DIVERTICULITIS N SLEEP APNEA N CHICKENPOX N INFECTIOUS DISEASE N HEART ARRHYTHMIA N PROSTATE N INSOMNIA N HIGH CHOLESTEROL / HYPERLIPIDEMIA N HYPERTHYROIDISM N EYE PROBLEMS N NEUROLOGICAL PROBLEMS N EDEMA N CHRONIC PAIN SYNDROME N HYPOTHYROIDISM N CAROTID BLOCKAGE N CONSTIPATION N BACK / NECK PROBLEMS N HAVE YOU BEEN HOSPITALIZED OR SEEN IN [facility] ER IN THE PAST YEAR ? N ATHEROSCLEROSIS N BREAST PROBLEMS N DIALYSIS N ECZEMA N OSTEOPOROSIS N ARTHRITIS Y NO SIGNIFICANT PAST MEDICAL HISTORY N APPENDICITIS N DIABETES, TYPE Y BAD TEETH N ENT N HEARTBURN / REFLUX N AUTISM SPECTRUM DISORDER (ASD) N HEPATITIS / LIVER DISEASE N PULMONARY DISEASE N GOUT N SLEEP DISORDER N ALZHEIMER'S DISEASE N Brain Problems N HERPES N DEMENTIA N HEADACHES/MIGRAINES N SEIZURES/EPILEPSY N VASCULAR DISEASE N PACEMAKER N Blood Disorder N DIZZINESS N HEART DISEASE/HEART PROBLEMS N KIDNEY DISEASE N MULTIPLE SCLEROSIS N CARDIAC ARRHYTHMIA N CANCER: SPECIFY N ANESTHESIA COMPLICATIONS N ATRIAL FIBRILLATION N Gall Stones N PULMONARY EMBOLISM N AUTOIMMUNE DISEASE N Immunizations Vaccine Type Date Status Note Provider Nam e and Address Organization Details Recorded Time SARS-COV-2 (COVID-19) vaccine, UNSPECIFIED 2 completed Not Available [facility] 09/05/2023 05:07:49 SARS-COV-2 (COVID-19) vaccine, UNSPECIFIED 1 completed Not Available [facility] 09/05/2023 05:07:49 SARS-COV-2 (COVID-19) vaccine, UNSPECIFIED 1 completed Not Available [facility] 09/05/2023 05:07:49 Past Encounters Encounter ID Performer Location Encounter Start Date Encounter Closed Date Diagnosis/Indication Diagnosis SNOMED-CT Code Diagnosis ICD10 Code [id number] Rodolfo Topete MD [facility] [address] [facility] , [facility] [place] [address] 06/04/2024 16:22:23 06/04/2024 16:58:38 Essential hypertension [id number] I10 Gastroesop hageal reflux disease 865074906 K21.9 Pure hypercholesterolemia [id number] E78.00 Type 2 brittney betes mellitus without complication [id number] E11.9 Obese class I [id number] E66.811 Health Concerns Section Related Observation LastModified by Organization Detai ls LastModified Time None Recorded Concern Status LastModified by Organization Details LastModified Time None Recorded Payers Encounter Date Sequence Insurance Name Policy Number Policy Ma Covered Member ID Ma Member ID Guarantor Name 06/04/2024 1 [facility] (MEDICARE REPLACEMENT/A DVANTAGE - PPO) [id number] Hunter Reid [id number] Hunter Reid Notes Date Note Type Note Provider Name and Address Organization Details Recorded Time 06/04/2024 text/html Patient Name: Danny Mercer ([email or web address])eDate Of Service: May ( 06.04.2024 ): 1950 Age: 73 There has been approximately a 6 lb weight gain since 02/06/2024. This represents approximately a 2.8% change in weight. Weight change attributable to lifestyle changes. Vital Signs:Blood Pressure: Sitting Rt. Arm 130/72Pulse: Sitting 89 /min and RegularRespiratory Rate: 16Height 71 in or 1.8 mWeight 218 lb or 98.9 kgBMI 30.4Temperature: 97 F or 36.1 CPulse Oximetry: 97 % at rest on no oxygen Chief Complaint: Addressed in HPI Problems or conditions discussed in the HPI were the only ones reviewed during the encounter.Only social and family history addressed in the HPI were reviewed during this encounter. Attendant(s): NoneConstitutional and Systemic Symptoms:none Medication Reconciliation: from medication list. Xjdrnqbegef52/25/2023: CPAP diet elevated 15.4 suggesting significant insulin resistance but adequate insulin production. 01/29/2023: Ultrasound of the abdomen revealed hepatic steatosis as well as some splenomegaly. 2 cm left renal cyst is noted 12-01-2023: CT of the abdomen and pelvis showed an 8 mm right lower lobe pulmonary nodule. Recommended a low-dose CT scan non contrast in 6-12 months. Hepatic steatosis, splenomegaly and cystitis noted. 12-16-2023: Low-dose CT scan of the chest showed pulmonary nodules measuring up to 7 mm probably benign noncontrast low-dose CT scan is recommended in six months. History of Present Illness #1. Essential Hypertension: Stage: normal Interval Neurological Complaints no headaches. No shortness of breath, orthopnea or cardiovascular symptoms. No other symptoms related to end organ damage. Pressure has been under excellent control. Currently normal. No other end organ symptoms or findings. Therapy reviewed regarding management of hypertension and includes salt restriction and Losartan Potassium. #2. Type II Hypercholesterolaemia: Currently taking medication and tolerating well. No interval complaints of any muscle pain or arthralgia. No significant liver changes with medications. Last lipid panel: fair control. Therapy reviewed regarding treatment of cholesterol management and include diet and Atorvastatin Calcium. #3. Type II Diabetes: Has had no polyuria polyphagia or polydipsia. Has had no hypoglycemic like responses. No new history of any numbness, tingling, weakness or visual problems. No nausea, anorexia or other constitutional symptoms. There has been no foot problems or non healing lesions. The last HAIC was DCCT HAIC: 9.4 Calculated MB mg%. CGM: No. Average blood sugars 100-115 mg%. Checking sugars : infrequently. Medication Types Include: Metformin, Sulfonylureas and Insulin Secondary complications include none. Macro-vascular complications include none. Therapy reviewed regarding diabetic management and include Glimepiride, Lantus Solostar Pen and Metformin Hydrochloride Er Compliance: good Renal Protection: ARBs Lipid management: statins Urinary microalbumin: A1 . Ophthalmological: has seen eye doctor within the last year. Control: Inadequate control > 8 #4. Hx of esophageal reflux currently stable. Hx of Complications: none The severity, duration and intensity of symptoms have improved. Frequency: most meals Treatment consists medications taken on no regular basis. Current therapy includes Protonix. There has been no nausea, eructation, vomiting, hematemesis, dysphagia, velopharyngeal insufficiency and odynophagia. No change in he frequency or intensity of symptoms. Has had no melena. Has had no . Discussed use of H2 antagonists and the possibility of trying to reduce the frequency of the use of any PPI inhibitors and try H2 antagonists to see if symptoms can be controlled with lease intensive therapy since a number of complications are associated with chronic prolonged use of PPI inhibitors. #5. Hx of obesity. Currently overweight. Has tried numerous dietary support and supplements with no benefit. Instructed on the health consequences of the obese status particularly cancer - diabetes and heart disease. Discussed other modalities of weight loss no . Potential candidate for bariatric surgery: No. Wishes to be evaluated by Dietary: No and was offered to be evaluated and instructed by power shear operator on weight loss diet. Active Medication ListGlimepiride 2 MG TABLET One DailyNeurontin 300 MG (CAPSULE - ORAL) One TidAtorvastatin Calcium 20 MG (TABLET - ORAL) One DailyMetformin Hydrochloride Er 1 GM (TABLET - ORAL) One BidVitamin D 50,000 IU (CAPSULE - ORAL) One WeeklyCompazine 10 MG (CAPSULE, EXTENDED RELEASE - ORAL) Q 8 Hours PrnCpap As DirectedFolic Acid 1 MG TABLET Take 5 Tablets DailyProtonix 40 MG TABLET, DELAYED RELEASE Once DailyMultivitamin Once DailyVitamin B12 Once DailyLosartan Potassium 50 MG TABLET One DailyLantus Solostar Pen 30 Units Vaccination and Immunization( ) 2020- COVID PFIZER(X) 2021-08 COVID BOOSTER PFIZER Surgical [id number] Bilateral [id number] Left Inguinal Hernia Preventative Testing( ) 03/27/2024 Albumin 4.3 G/DL( ) 03/27/2024 PSA 1.3 NG/ML 03/27/2026( ) 12/16/2023 LDCT 12/15/2024( ) 12/10/2023 Optometry( ) 11/07/2023 Colonoscopy ( 5 Years ) 11/06/2028( ) 06/06/2023 HAIC 9.4( ) 04/05/2022 Micro Albumin 3.6 UG/ML N( ) 06/09/2021 Ophthalmology( ) 03/13/2017 Upper Endoscopy Social HistoryDoes not smokeDrinks Sossee Family HistoryMother 85 hx of essential hypertension and CA of LungFather 90 CA prostate and esophagusNo brothers or sisters Rodolfo Topete MD [address], [facility] [address], [place], [address], [place] - [employer] 06/04/2024 16:48:58
[2024-08-07 16:26] LABS: Iron 71 ug/dL (49-181)
[2024-08-07 16:29] LABS: Alanine Aminotransferase 66 U/L (6-50); Albumin Level 4.3 g/dL (3.5-5.1); Alkaline Phosphatase 126 U/L (38-126); Anion Gap 7 mmol/L (4-12); Aspartate Amino Transferase 62 U/L (17-59); Bilirubin,Total 0.8 mg/dL (0.2-1.3); Blood Urea Nitrogen 16 mg/dL (9-20); Calcium 9.2 mg/dL (8.4-10.2); Carbon Dioxide 29 mmol/L (22-30); Chloride 103 mmol/L (98-107); Estimated Glomerular Filt Rate > 60; Glucose 191 mg/dL (65-110); Potassium 3.7 mmol/L (3.4-5.0); Sodium 139 mmol/L (137-145)
[2024-08-07 16:36] LABS: Percent Iron Saturation 20 % (20-50)
[2024-08-07 17:41] LABS: Folic Acid > 20.0 ng/mL (2.76->20)
== END 2024-08-07 10:06 | disposition home or self-care (01) ==
LOC: ANHLAB 10:07
PROVIDERS: PCP Internal Medicine; Visit Provider Internal Medicine Hematology & Oncology
DX: D64.9 Anemia, unspecified (principal)
CPT/HCPCS: 36415; 80047; 80053; 82607; 82728; 82746; 83540; 83550; 85025; 85055

== ENCOUNTER 2024-10-18 16:17 | Emergency (ER) | payer MEDICARE, SELFPAY ==
--- NOTE | ~2024-10-18 | XR_ITS ---
CHEST RADIOGRAPH, PA AND LATERAL CLINICAL HISTORY: chest pain . COMPARISON: 12/01/2023 TECHNIQUE: PA and lateral views of the chest. FINDINGS The cardiomediastinal silhouette is unremarkable. The lungs are clear. Visualized osseous structures and soft tissues are unremarkable. IMPRESSION: No focal infiltrate or effusion. Reviewed, dictated and finalized at location A. [facility] SPECIALIST
--- NOTE | 2024-10-18 16:17 | ECG_ITS ---
Test Date: 2024-10-18 16:30:11 Measurements Intervals [place] Rate: 73 P: 48 IN: 180 QRS: 63 QRSD: 89 T: 68 QT: 324 QTc: 359 Interpretive Statements SINUS RHYTHM DELAYED PRECORDIAL R/S TRANSITION BORDERLINE T WAVE ABNORMALITY- HIGH LATERAL LEADS BASELINE ARTIFACT- I, II, III, AVR, AVL, AVF, V1-V6 BORDERLINE ECG No previous ECG available for comparison Electronically Signed On 10-18-2024 16:37:16 SALES SERVICE ASSISTANT by Jovan Mckeon D.O.
--- OUTSIDE RECORDS SUMMARY | 2024-10-18 16:19 | XMS_ITS | Data Portability ---
Author Organization [facility] [employer], Main Office Address [address] [place] [address] Assessment No assessment recorded. Plan of Treatment Reminders Order Date Submit Date Provider Last Modified By Organization Details Last Modified Time Details Appointments None recorded. Lab lipid panel, serum 2024 025 [email or web address] [facility], [address], [place], [address], 5 09:39:16 CMP, serum or plasma 2024 025 [email or web address] [facility], [address], [address], [place], [address], 5 09:39:16 unlisted lab - T4, free 2024 025 [email or web address] [facility], [address], [address], [place], [address], 5 09:39:16 TSH, ultra-sensi tive, serum 2024 025 [email or web address] [facility], [address], [place], [address], 5 09:39:16 HbA1c (hemoglobin A1c), blood 2024 025 [email or web address] [facility], [address], [address], [place], [address], 5 09:39:17 CBC w/ auto diff 2024 025 [email or web address] [facility], [address], [address], [place], [address], 5 09:39:16 lipid panel, serum 2023 024 [email or web address] [facility], [address], [address], [place], [address], 4 16:46:11 CMP, serum or plasma 2023 024 [email or web address] [facility], [address], [address], [place], [address], 4 16:46:11 HbA1c (hemoglobin A1c), blood 2023 024 [facility], [address], [address], [place], [address], 4 16:46:11 CBC w/ auto diff 2023 024 [email or web address] [facility], [address], [address], [place], [address], 4 16:46:11 lipid panel, serum 2023 024 [email or web address] [facility], [address], [address], [place], [address], 4 10:19:31 CMP, serum or plasma 2023 024 [email or web address] [facility], [address], [address], [place], [address], 4 10:19:31 TSH, serum or plasma 2023 024 [email or web address] [facility], [address], [address], [place], [address], 4 10:19:31 T4, free, serum 2023 024 [email or web address] [facility], [address], [address], [place], [address], 4 10:19:32 PSA, serum or plasma 2023 024 [facility], [address], [address], [place], [address], 4 10:19:32 magnesium, serum or plasma 2023 024 [email or web address] [facility], [address], [address], [place], [address], 4 10:19:32 vitamin B12, serum 2023 024 [email or web address] [facility], [address], [address], [place], [address], 4 10:19:32 CBC w/ auto diff 2023 024 [email or web address] [facility], [address], [address], [place], [address], 4 10:19:31 lipid panel, serum 2023 024 [email or web address] [facility], [address], [address], [place], [address], 4 17:45:50 CMP, serum or plasma 2023 024 [email or web address] [facility], [address], [address], [place], [address], 4 17:45:51 PSA, serum or plasma 2023 024 [email or web address] [facility], [address], [address], [place], [address], 4 17:45:51 HbA1c (hemoglobin A1c), blood 2023 024 [email or web address] [facility], [address], [address], [place], [address], 4 17:45:51 albumin/cre atinine, mass ratio, urine 2023 024 [email or web address] [facility], [address], [address], [place], [address], 4 17:45:51 CBC w/ auto diff 2023 024 [email or web address] [facility], [address], [address], [place], [address], 4 17:45:50 lipid panel, serum 2022 023 norman Meyers, [address], [address], [place], [address], 3 11:31:40 hepatic function panel, serum 2022 023 [email or web address] Meyers, [address], [address], [place], [address], 3 11:31:39 gamma-gluta myl transferase (ggt), serum 2022 023 [email or web address] [facility], [address], [address], [place], [address], 3 11:31:39 HbA1c (hemoglobin A1c), blood 2022 023 [email or web address] [facility], [address], [address], [place], [address], 3 11:31:39 albumin/cre atinine, mass ratio, urine 2022 023 [email or web address] [facility], [address], [address], [place], [address], 11:31:39 CBC w/ auto diff 2022 023 [email or web address] [facility], [address], [address], [place], [address], 11:31:39 Referral None recorded. Procedures None recorded. Surgeries None recorded. Imaging None recorded. Medication Orders None recorded. Patient TargetsNo targets recorded. Patient Instructions Encounter Date Encounter Id Patient Instructions Last Modified By Organization Details Last Modified Time 05/31/2023 [id number] Follow-up hypertension-hyperl ipidemia- type 2 diabetes -steatosis the liver -GERD all clinically stable. Will check blood work consisting of CBC, CMP, lipid cam a gamma glutamyl transpeptidase, hemoglobin A1c. Hepatology further evaluation of fatty liver. Standard immunizations of RSV, COVID, influenza and shingles as recommended Portions of the record may have been created with voice recognition software. Occasional wrong-word or gcfxl-w-qksc substitutions may have occurred due to the inherent limitations of voice recognition software. Read the chart carefully and recognize, using context, where substitutions have occurred. Needs to be set up with position description manager for evaluation of fatty liver and possible early fibrosis Next Appt: 4 Months Approximate Date: 09/28/2023 [email or web address] Not available 05/31/2023 16:30:05 10/18/2023 [id number] Hypertension -hyperlipidemia - type 2 diabetes and rheumatoid arthritis all clinically stable. Check blood work in the form of CBC, CMP, lipid, thyroid and PSA. Continue on current Rx follow-up in four months Portions of the record may have been created with voice recognition software. Occasional wrong-word or qzbqz-p-aovr substitutions may have occurred due to the inherent limitations of voice recognition software. Read the chart carefully and recognize, using context, where substitutions have occurred. [email or web address] Not available 10/18/2023 16:24:13 02/06/2024 [id number] Follow-up for hypertension, hyperlipidemia, type 2 diabetes and GERD all clinically stable. Check blood work consisting of CBC, CMP, lipid, thyroid, magnesium, B12 and PSA. Continue on current Rx and follow-up in four months Next Appointment: 4 Months Approximate Date: 06/05/2024 Portions of the record may have been created with voice recognition software. Occasional wrong-word or vfrly-o-fozt substitutions may have occurred due to the inherent limitations of voice recognition software. Read the chart carefully and recognize, using context, where substitutions have occurred. [email or web address] Not available 02/06/2024 12:13:49 06/04/2024 [id number] Follow-up for hypertension, hyperlipidemia, type 2 diabetes, GERD as well as obesity class one. Check blood work consistent with a hemoglobin A1c, CMP, CBC, lipid panel. Continue on current Rx follow-up in four months Follow Up: 4 Months Approximate Date: 10/02/2024 Portions of the record may have been created with voice recognition software. Occasional wrong-word or moele-v-zgxp substitutions may have occurred due to the inherent limitations of voice recognition software. Read the chart carefully and recognize, using context, where substitutions have occurred. [email or web address] Not available 06/04/2024 16:48:26 10/08/2024 [id number] Follow-up essent ial hypertension, hyperlipidemia, type 2 diabetes, sleep apnea obesity class one. Will check blood work consisting CBC, CMP, lipid and hemoglobin A1c level. Will attempt to start on one of the GLP- 1. Inhibitors. See if his sugars can be better controlled. Follow-up in four months Additional Orders - Directives - Recommendations 1. like to start him on some semaglutide or Mounjaro for diabetic control and obesity. Follow Up: 4 Months Approximate Date: 02/05/2025 Portions of record are template driven. When necessary additional context will be provided. Additionally some portions have been created with voice recognition software. Occasional wrong-word or owatm-n-eran substitutions may have occurred due to the inherent limitations of voice recognition software. Read the chart carefully and recognize, using context, where substitutions may have occurred. Created: Rodolfo Topete M.D. 10.08.2024 10:53 AM [email or web address] Not available 10/08/2024 11:53:18 Reason for Referral None Reported. Results Created Date Observation Date Name Description Value Unit Range Abnormal Flag Note LastModifiedBy Organization Detail LastModifiedTime 12/01/19 24 12/01/2023 XR, elbow , 2 view No observ ation record ed. [email or web address] [facility] [address], [place], [address], 12/02/2023 06:55:48 12/01/1912/01/2023 CT, abdom en + pelvi s, w/ contr ast No observ ation record ed. [address], [place], [address], 12/02/2023 06:56:34 12/17/1912/16/2023 CT, chest , w/o contr ast No observ ation record ed. [email or web address] [address], [place], [address], 12/18/2023 15:08:09 05/29/2005/29/2024 CT, chest , w/o contr ast No observ ation record ed. [address], [place], [address], 05/29/2024 13:28:13 Result Notes None recorded. Problems Name Problem SNOMED Code Status Onset Date Resolution Date Notes Provider Name and Address Organization Details Recorded Time Acute bronchitis 06106533 Active 2021 Not Available [facility] 4 05:07:49 Paronychia of toe of right foot 3822228685041 9102 Active 2020 Not Available [facility] 4 05:07:49 Avulsion of toenail of right foot 7939428616728 9102 Active 2020 Not Available [facility] 4 05:07:49 Insomnia 059215216 Active Not Available [facility] 4 05:07:49 Neuropathy due to diabetes mellitus 920453619 Active 2019 Not Available [facility] 4 05:07:49 Gastroesop hageal reflux disease 087900974 Active Not Available [facility] 4 05:07:49 Pure hyperchole sterolemia 297056839 Active 2017 Not Available [facility] 4 05:07:49 Subungual hematoma 270348690 Active 2020 Not Available [facility] 4 05:07:49 Low back pain 618631654 Active 2021 Not Available [facility] 4 05:07:49 Chest pain 70012588 Active Not Available [facility] 4 05:07:49 Type 2 diabetes mellitus without complicati on 792536237 Active 2018 Not Available [facility] 4 05:07:49 Subdural hemorrhage 11766945 Active 2018 Not Available [facility] 4 05:07:49 History of polyp of colon 515217036 Active Not Available [facility] 4 05:07:49 Uncontroll ed type 2 diabetes mellitus 657487814 Active 2018 Not Available [facility] 4 05:07:49 Essential hypertensi on 48126127 Active 2021 Not Available [facility] 4 05:07:49 Acute maxillary sinusitis 12764755 Active Not Available [facility] 4 05:07:49 Rheumatoid arthritis 82325501 Active 2017 Not Available [facility] 4 05:07:49 Sleep apnea 62560946 Active Not Available [facility] 4 05:07:49 Obstructiv e sleep apnea syndrome 02020437 Active 2018 Not Available [facility] 4 05:07:49 Neck pain 13693733 Active 2021 Not Available [facility] 4 05:07:49 Tinea pedis 0451304 Active 2022 Not Available [facility] 4 05:07:49 Steatosis of liver 423703766 Active 2022 Not Available [facility] 4 05:07:49 Nonalcohol ic steatohepa titis 970686855 Active 2022 Not Available [facility] 4 05:07:49 Acute sinusitis 19313701 Active 2022 Not Available [facility] 4 19:56:21 Disorder of prostate 16479791 Active 2023 Rodolfo Topete MD [address], [address], [place], [address] , [facility] [employer] [facility] 4 16:24:07 Obese class I [id number] 07 Active 2023 Rodolfo Topete MD [address], [address], [place], [address] , [facility] [employer] [facility] 4 16:48:02 Problem Notes None recorded. Procedures Surgical History Date Name Laterality Status Provider Name and Address Organization Details Recorded Time 3 Medicare Wellness CPT Code, subsequent completed Kat Phelps RN [facility] [employer] [facility] 12/21/2022 15:36:33 3 Advanced Care Planning completed Kat Phelps RN [facility] [employer] [facility] 12/21/2022 15:38:14 Eye Surgery completed Not Available [facility] 10/24/2022 14:45:40 Imaging Results Imaging Date Name Status LastModified by Organiz ation Details LastModified Time 12/01/2023 XR, elbow, 2 view completed [address], [address], 12/02/2023 06:55:48 12/01/2023 CT, abdomen + pelvis, w/ contrast completed [address], [address], 12/02/2023 06:56:34 12/16/2023 CT, chest, w/o contrast completed [email or web address] [address], [address], 12/18/2023 15:08:09 05/29/2024 CT, chest, w/o contrast completed [address], [address], 05/29/2024 13:28:13 Procedure Notes None recorded. Medical Equipment None Reported. Allergies Allergen ID Allergen Name Allergen Category Reaction Reaction Severity Criticality Documentation Date Start Date Code Code System Note Provider Name and Address Organization Details Recorded Time 57364 Product containin g penicilli n (product) medicatio n anaphylax is severe Not available 10/24/20222016 65848 8001 SNOMED recei kvng from [place] son for tooth infec tion, went back to [place] son with swell ing and was given a shot . Not Available [facility] 3 14:51:22 77092 metformin medicatio n diarrhea Not available [employer] 02/12/2023 6809 RxNorm Misti Ward, JANAK null, [place] - [facility] [place] [employer] 3 14:04:46 Medications Name Sig Start Date [...] ORAL ROUTE ONCE DAILY FOR 4 DAYS 10/08 completed Not Available Not Available Not Available alprazolam 1 mg tablet 08/11 completed [...] 4 TO 6 HOURS NEEDED FOR PAIN 10/08 completed Not Available Not Available Not Available leflunomide 20 mg tablet TAKE 1 [...] BY MOUTH EVERY DAY TWICE A DAY active Not Available Not Available No t Available pantoprazol e 20 mg tablet,loree yed release [...] Not Available lidocaine 5 % topical patch 10/08 completed Not Available Not Available Not Available [...] TAKE 2 TABLETS BY MOUTH TWICE DAILY active Not Available Not Available No t Available clotrimazol e 1 % topical cream APPLY [...] Available chlorhexidi ne gluconate 0.12 % mouthwash RINSE MOUTH WITH 15 ML FOR 2 MINUTES AND THEN SPIT EVERY 12 HOURS active Not Available Not Available No t [...] 100 unit/mL (3 mL) subcutaneou s pen ADMINISTE R 25 UNITS UNDER THE SKIN EVERY DAY AT BEDTIME active Not Available Not Available No t Available metformin ER 1,000 mg 24 hr tablet,exte nded release (gastric reten.) Take 1 tablet twice a day by oral route. 04/03 completed Not Available Not Available Not Available glipizide ER 2.5 mg 24 hr tablet,exte nded release Take 1 tablet every day by oral route. 01/25 completed Not Available Not Available Not Available sodium,pota ssium,mag sulfates 17.5 gram-3.13 gram-1.6 gram oral soln 10/08 completed Not Available Not Available Not Available [...] T TOGETHER PO BID FOR 5 DAYS 10/08 completed Not Available Not Available Not Available Mounjaro 2.5 mg/0.5 mL subcutaneou s pen injector ADMINISTE R 2.5 MG UNDER THE SKIN 1 TIME WEEKLY FOR 4 WEEKS active Not Available Not Available No t Available Vitals Date Recorded Body height Body mass index (BMI) Body weight Heart rate Body temperature Oxygen saturation Oxygen saturation in Arterial blood by Pulse oximetry Systolic blood pressure Diastolic blood pressure Provider Name and Address Organization Details Last Updated DateTime 3 180.34 cm 29.1 kg/m2 51290.8 1 g 85 /min 97 [degF] 95 % 95 % 120 mm[Hg] 64 mm[Hg] Tammy Patel [employer] 3 16:08:46 Date Recorded Body height Body mass index (BMI) Body weight Heart rate Body temperature Oxygen saturation Oxygen saturation in Arterial blood by Pulse oximetry Systolic blood pressure Diastolic blood pressure Provider Name and Address Organization Details Last Updated DateTime 4 180.34 cm 29.8 kg/m2 43904.7 7 g 91 /min 97.5 [degF] 96 % 96 % 116 mm[Hg] 76 mm[Hg] IAM Caraballo [employer] [facility] [email or web address] [facility] 4 16:09:17 Date Recorded Body height Body mass index (BMI) Body weight Heart rate Body temperature Oxygen saturation Oxygen saturation in Arterial blood by Pulse oximetry Systolic blood pressure Diastolic blood pressure Provider Name and Address Organization Details Last Updated DateTime 4 180.34 cm 29.6 kg/m2 84444.5 8 g 77 /min 97.6 [degF] 97 % 97 % 120 mm[Hg] 64 mm[Hg] IAM Caarballo [employer] [facility] [email or web address] [facility] 4 12:00:34 Date Recorded Body height Body weight Heart rate Body temperature Oxygen saturation Oxygen saturation in Arterial blood by Pulse oximetry Systolic blood pressure Diastolic blood pressure Provider Name and Address Organization Details Last Updated DateTime 4 180.34 cm 31046.1 4 g 89 /min 97 [degF] 97 % 97 % 130 mm[Hg] 72 mm[Hg] IAM Caraballo [facility] [employer] [facility] 4 16:33:11 Date Recorded Body height Body mass index (BMI) Body weight Heart rate Body temperature Oxygen saturation Oxygen saturation in Arterial blood by Pulse oximetry Systolic blood pressure Diastolic blood pressure Provider Name and Address Organization Details Last Updated DateTime 5 180.34 cm 31 kg/m2 469114. 51 g 83 /min 97 [degF] 95 % 95 % 120 mm[Hg] 68 mm[Hg] Tammy Jorge [facility] [employer] [facility] 5 11:32:05 Social History Question Answer Notes LastModified by Quantanceizat ion Details LastModified Time Tobacco Smoking Status Never Smoker Not Available [facility] 10/24/2022 14:45:24 Do You Have An Advance Directive? No MIGRATION.79726 [id number] Information not available 10/24/2022 What Is Your Level Of Alcohol Consumption? None MIGRATION.00066 04900 Information not available 10/24/2022 Are You Blind Or Do You Have Difficulty Seeing? No MIGRATION.63214 72967 Information not available 10/24/2022 Are You Deaf Or Do You Have Serious Difficulty Hearing? Yes Has Hearing Aids That Doesn't Like MIGRATION.88622 71031 Information not available 10/24/2022 What Type Of Diet Are You Following? REGULAR MIGRATION.81013 79445 Information not available 10/24/2022 Have There Been Any Changes To Your Family Or Social Situation? No MIGRATION.97819 87256 Information not available 10/24/2022 What Is The Fluoride Status Of Your Home? Unknown MIGRATION.61506 66359 Information not available 10/24/2022 Do You Use Insect Repellent Routinely? No MIGRATION.94116 67139 Information not available 10/24/2022 Where Do You Live? [place] MIGRATION.57601 10468 Information not available 10/24/2022 Do You Have A Medical Power Of Fifth Hand? No MIGRATION.72057 03395 Information not available 10/24/2022 What Was The Date Of Your Most Recent Tobacco Screening? 12/08/2021 MIGRATION.64689 08696 Information not available 10/24/2022 Do You Have Any Pets? No MIGRATION.04811 03386 Information not available 10/24/2022 What Is Your Relationship Status? MIGRATION.92121 19359 Information not available 10/24/2022 Do You Use Your Seat Belt Or Car Seat Routinely? Yes MIGRATION.84010 45025 Information not available 10/24/2022 Do You Have Smoke And Carbon Monoxide Detectors In Your Home? Yes MIGRATION.99701 12512 Information not available 10/24/2022 Are You Passively Exposed To Smoke? No MIGRATION.00304 13104 Information not available 10/24/2022 Do You Use Sunscreen Routinely? No MIGRATION.84424 76984 Information not available 10/24/2022 Have You Recently Traveled Abroad? No MIGRATION.60221 38133 Information not available 10/24/2022 Do You Have Any Dietary Restrictions? No MIGRATION.60156 99131 Information not available 10/24/2022 Sex: Unknown Functional Status Question Answer Note LastModified by Organizat ion Details LastModified Time Do you have difficulty walking or climbing stairs? No MIGRATION.8743602 026 Information not available 10/24/2022 Do you have transportation difficulties? No MIGRATION.7344432 026 Information not available 10/24/2022 Are you able to walk? YESWOREST MIGRATION.4507604 026 Information not available 10/24/2022 Do you have difficulty doing errands alone? No MIGRATION.0512648 026 Information not available 10/24/2022 Are you able to care for yourself? Yes MIGRATION.1878250 026 Information not available 10/24/2022 Do you have difficulty dressing or bathing? No MIGRATION.5311548 026 Information not available 10/24/2022 What is your exercise level? Occasional MIGRATION.8668170 026 Information not available 10/24/2022 Mental Status Question Answer Note LastModified by Organizat ion Details LastModified Time Do you have difficulty concentrating, remembering or making decisions? No MIGRATION.[id number] 6 Information not available 10/24/2022 Family History Relationship Description Onset Age of this Age Resolved Age Notes LastModified by Organization Details LastModified Time Father Heart disease MIGRATION.378 [id number] Not available 10/24/2022 14:45:40 Notes:Mother 85 hx [...] HAVE YOU BEEN HOSPITALIZED OR SEEN IN [facility] IN THE PAST YEAR ? N ATHEROSCLEROSIS [...] (COVID-19) vaccine, UNSPECIFIED 2 completed Not Available [facility] 09/05/2023 05:07:49 SARS-COV-2 (COVID-19) vaccine, UNSPECIFIED 1 completed Not Available [facility] 09/05/2023 05:07:49 SARS-COV-2 (COVID-19) vaccine, UNSPECIFIED 1 completed Not Available [facility] 09/05/2023 05:07:49 Past Encounters Encounter ID Performer Location Encounter Start Date Encounter Closed Date Diagnosis/Indication Diagnosis SNOMED-CT Code Diagnosis ICD10 Code Diagnosis Note [id number] [facility] [place] [address] [place] [address] 10/28/2020 00:00:00 10/28/2020 12:16:46 [id number] [facility] [address], [address] [address] 11/22/2020 00:00:00 11/22/2020 15:52:38 [id number] [facility] [address], [address] [address] 11/30/2020 00:00:00 11/30/2020 12:12:08 [id number] [facility] [address], [address] [address] 12/19/2020 00:00:00 12/21/2020 08:52:01 [id number] [facility] [address], [address] [address] 01/02/2021 00:00:00 01/02/2021 14:01:47 [id number] [facility] [place] [address] [place] [address] 01/24/2021 00:00:00 01/24/2021 16:16:10 [id number] [facility] [place] [address] [place] [address] 04/21/2021 00:00:00 04/21/2021 15:36:20 [id number] [facility] [place] [address] [place] [address] y , [place] [address] 08/11/2021 00:00:00 08/11/2021 11:15:44 [id number] [facility] [place] [address] [place] [address] y , [place] [address] 12/08/2021 00:00:00 12/08/2021 11:54:26 [id number] [facility] [place] [address] [place] [address] y , [place] [address] 03/30/2022 00:00:00 03/30/2022 10:50:16 [id number] [facility] [place] [address] [place] [address] y , [place] [address] 06/26/2022 00:00:00 06/26/2022 16:30:32 [id number] Rodolfo Topete MD [facility] [place] [address] [place] [address] y , [place] [address] 10/30/2022 15:57:53 10/30/2022 16:50:42 Essential hypertension 22189875 I10 Obstructiv e sleep apnea syndrome 68123044 G47.33 Pure hypercholesterolemia 615352385 E78.00 Type 2 brittney betes mellitus without complication 771647013 E11.9 Gastroesop hageal reflux disease 515135850 K21.9 Tinea pedis 1782028 B35. 3 [id number] Rodolfo Topete MD [facility] [place] [address] [place] [address] y , [place] [address] 12/21/2022 15:23:07 12/21/2022 15:56:18 Adult health examination 951345752 Z00.00 Screening for disorder 656106489 Z13.9 Essential hypertension 23848781 I10 Pure hypercholesterolemia 754027605 E78.00 Type 2 brittney betes mellitus without complication 498357564 E11.9 Rheumatoid arthritis 698 68198 M06.9 Tinea pedis 8993131 B35. 3 [id number] Rodolfo Topete MD [facility] [place] [address] [facility] [place] [address] 03/01/2023 15:54:41 03/01/2023 16:26:36 Essential hypertension 41442742 I10 Pure hypercholesterolemia 693830781 E78.00 Type 2 brittney betes mellitus without complication 799268487 E11.9 Rheumatoid arthritis 698 65827 M06.9 Nonalcohol ic steatohepatitis 379523173 K75.81 [id number] Rodolfo Topete MD [facility] Internal [facility] [place] [address] [facility] [place] [address] 05/31/2023 15:55:19 05/31/2023 16:42:23 Essential hypertension 14359475 I10 Pure hypercholesterolemia 954028778 E78.00 Type 2 brittney betes mellitus without complication 021944374 E11.9 Steatosis of liver 25589 1007 K76.0 Gastroesop hageal reflux disease 468728295 K21.9 [id number] Rodolfo Topete MD [facility] Internal Med [place] [address] [facility] [address] , [place] [address] 10/18/2023 15:55:46 10/18/2023 16:33:00 Essential hypertension 23771177 I10 Pure hypercholesterolemia 743682616 E78.00 Type 2 brittney betes mellitus without complication 103138720 E11.9 Rheumatoid arthritis 698 77902 M06.9 Disorder of prostate 302 19915 N42.9 [id number] Rodolfo Topete MD [facility] [place] [address] [place] [address] [place] [address] 02/06/2024 11:52:19 02/06/2024 12:20:18 Essential hypertension 05078774 I10 Pure hypercholesterolemia 286655411 E78.00 Uncontroll ed type 2 diabetes mellitus 871506371 E11.65 Gastroesop hageal reflux disease 324502564 K21.9 Disorder of prostate 302 23927 N42.9 [id number] Rodolfo Topete MD [facility] Internal Med [place] [address] [place] [address] 06/04/2024 16:22:23 06/04/2024 16:58:38 Essential hypertension 51235232 I10 Gastroesop hageal reflux disease 365995603 K21.9 Pure hypercholesterolemia 700625746 E78.00 Type 2 brittney betes mellitus without complication 961977071 E11.9 Obese class I [id number] 69080 E66.849 [id number] Rodolfo Topete MD [facility] [address] [facility] [address] [place] [address] 10/08/2024 10:58:28 10/08/2024 12:06:39 Essential hypertension 80003506 I10 Pure hypercholesterolemia 425382520 E78.00 Type 2 brittney betes mellitus without complication 430362695 E11.9 Sleep apnea 64936791 G47 .30 Obese class I [id number] 33679 E66.811 Health Concerns Section Related Observation LastModified by Organization Detai ls LastModified Time None Recorded Concern Status LastModified by Organization Details LastModified Time None Recorded Advance Directives Directive N: Payers Encounter Date Sequence Insurance Name Policy Number Policy Ma Covered Member ID Ma Member ID Guarantor Name 05/31/2023 1 [place] (MEDICARE REPLACEMENT/A DVANTAGE - PPO) [id number] Hunter Reid [id number] Hunter Reid 10/18/2023 1 [place] ([place]ICARE [place]ACEMENT/A DVANTAGE - PPO) [id number] Hunter Reid [id number] Hunter Reid 10/18/2023 2 [facility] [employer] CHOICE PLUS (PPO) [id number] Hunter Reid [id number] Hunter Reid 02/06/2024 1 [place] (MEDICARE REPLACEMENT/A DVANTAGE - PPO) [id number] Hunter Reid [id number] Hunter Reid 02/06/2024 2 [facility] CHOICE PLUS (PPO) [id number] Hunter Reid [id number] Hunter Reid 06/04/2024 1 [place] (MEDICARE REPLACEMENT/A DVANTAGE - PPO) [id number] Hunter Reid [id number] Hunter Reid 10/08/2024 1 [place] (MEDICARE REPLACEMENT/A DVANTAGE - PPO) [id number] Hunter Reid [id number] Hunter Reid Notes Date Note Type Note Provider Name and Address Organization Details Recorded Time 05/31/2023 text/html Patient Name: Danny Mercer (michael)eDate Of Service: Saturday ( 05.31.2023 ): 1950 Age: 72 There has been approximately a 6 lb weight loss since 03/01/2023. This represents approximately a 2.8% change in weight. Weight change attributable to lifestyle changes. Vital Signs:Blood Pressure: Sitting Rt. Arm 120/64Pulse: Sitting 85 /min and RegularRespiratory Rate: 12Height 71 in or 1.8 mWeight 209 lb or 94.8 kgBMI 29.1Temperature: 97 F or 36.1 CPulse Oximetry: 97 % at rest on no oxygen Chief Complaint: Addressed in HPI Problems or conditions discussed in the HPI were the only ones reviewed during the encounter.Only social and family history addressed in the HPI were reviewed during this encounter. Attendant(s): NoneConstitutional and Systemic Symptoms:none Medication Reconciliation: from medication list. Tphjtqomohp16/25/2023: CPAP diet elevated 15.4 suggesting significant insulin resistance but adequate insulin production.01/29/2023: Ultrasound of the abdomen revealed hepatic steatosis as well as some splenomegaly. 2 cm left renal cyst is noted History of Present Illness #1. Essential Hypertension: Stage: Stage I Interval Neurological Complaints no headaches, dizziness, weakness, visual changes, ataxia, aphasia and apraxia. No shortness of breath, orthopnea or cardiovascular [...] liver changes with medications. Last lipid panel: excellent control. Therapy reviewed regarding treatment of cholesterol [...] lesions. The last HAIC was DCCT HAIC: 7.1 Calculated MB mg%. Average blood sugars 100-115 mg%. Checking sugars : several times a week Medication Types Include: Metformin and Sulfonylureas Secondary complications include none. Macro-vascular complications include none. Therapy reviewed regarding diabetic management and include Glipizide and Metformin Hydrochloride Er Compliance: good Renal Protection: ARBs Lipid management: statins Urinary microalbumin: A1 . Ophthalmological: has seen eye doctor within the last year #4. History of steatosis of the liver. A recent CT scan did demonstrate evidence of some hepatic may be slight splenomegaly. Fibrosis score was somewhat elevated. Will need to be set up with hepatology for further evaluation.: #5. Hx of esophageal reflux currently stable. Hx of Complications: none The severity, duration and intensity of symptoms have improved. Frequency: most meals Treatment consists medications taken on a regular basis. Current therapy includes Protonix. There has been no nausea, eructation, vomiting, hematemesis, dysphagia, velopharyngeal insufficiency and odynophagia. No change in he frequency or intensity of symptoms. Has had no melena. Has had no hematemesis. Discuss the possibility of trying to reduce the frequency of the use of any PPI inhibitors or H2 antagonist to see if symptoms can be controlled with last intensive therapyMedication List Reviewed and Reconciled 05/31/2023Neurontin 300 MG (CAPSULE - ORAL) One TidAtorvastatin [...] Once DailyLosartan Potassium 50 MG TABLET One DailyGlipizide 10 MG TABLET One Twice DailyVaccination and Osnueqvanhyt1276-78 Covid Booster Pefqpd3842-88 Covid PfizerSurgical HistoryBilateral Cataracts, Left Inguinal HerniaPreventative Testing Confirmed by Our Gclxglw2710/31/2022 HAIC04/05/2022 MICRO ALBUMIN 3.6 UG/ML11/17/2021 ALBUMIN 4.5 G/DL09/18/2021 PSA 2.1 NG/ML06/16/2021 COLONOSCOPY (5 YEARS) LETTER HVBAUDCNUXAPI23/19/2017 UPPER VXKGXYUWE96/17/2017 PSASocial HistoryDoes not smokeDrinks sociallyWorks for the GovernmentFamily HistoryMother 85 hx of essential hypertension and CA of LungFather 90 CA prostate and esophagusNo brothers or sisters Rodolfo Topete MD [address] [facility], [place], [address], [facility] [employer] 05/31/2023 16:31:07 10/18/2023 text/html Patient Name: Danny hurt Floraivelisse [facility]: [facility] ( 10.18.2023 ): 1950 Age: 73 There has been approximately a 5 lb weight gain since 05/31/2023. This represents approximately a 2.4% change in weight. Weight change attributable to lifestyle changes. Vital Signs:Blood Pressure: Sitting Rt. Arm 116/76Pulse: Sitting 90 /min and RegularRespiratory Rate: 12Height 71 in or 1.8 mWeight 214 lb or 97.1 kgBMI 29.8Temperature: 97.5 F or 36.4 CPulse Oximetry: 96 % at rest on no oxygen Chief Complaint: Addressed in HPI Problems or conditions discussed in the HPI were the only ones reviewed during the encounter.Only social and family history addressed in the HPI were reviewed during this encounter. Attendant(s): NoneConstitutional and Systemic Symptoms:none Medication Reconciliation: by patient. Feedackpldc43/25/2023: CPAP diet elevated 15.4 suggesting significant insulin resistance but adequate insulin production. 01/29/2023: Ultrasound of the abdomen revealed hepatic steatosis as well as some splenomegaly. 2 cm left renal cyst is noted History of Present Illness #1. Essential Hypertension: Stage: Stage I Interval Neurological Complaints no headaches, dizziness, weakness, visual changes, ataxia, aphasia and apraxia. No shortness of breath, orthopnea or cardiovascular [...] was DCCT HAIC: 9.4 Calculated MB mg%. Average blood sugars > 150 mg%. Checking sugars : several times a week Medication Types Include: Metformin and Insulin Secondary complications include none. Macro-vascular complications include none. Therapy reviewed regarding diabetic management and include Lantus Solostar Pen and Metformin Hydrochloride Er Compliance: good Renal Protection: ARBs Lipid management: statins Urinary microalbumin: A1 . Ophthalmological: has seen eye doctor within the last year #4. Hx of rheumatoid arthritis. Currently stable. No additional joint swelling or deformities noted. Synovial thickening as noted below. Physical activity status unchanged. Followed by Cementer: No. Tolerating medications well. Medications currently consistent of NSAIDS. Active Medication ListNeurontin 300 MG (CAPSULE - ORAL) One TidAtorvastatin [...] 50 MG TABLET One DailyLantus Solostar Pen 10 Units Qd Vaccination and Zvrtxalwqeqj6500-20 Covid Booster Zccqjy5725-69 Covid Pfizer Surgical Jeotdym1998-07 Bilateral Wrbaytmxh9008-90 Left Inguinal Hernia Preventative Testing Confirmed by Our Xduulij0806/06/2023 HAIC 9. MICRO ALBUMIN 3.6 UG/ML N011/17/2021 ALBUMIN 4.5 G/DL N009/18/2021 PSA 2.1 NG/ML N1 COLONOSCOPY (5 YEARS) 610/ RRQOIBNIHXAPJ01/19/2017 UPPER ENDOSCOPY Social HistoryDoes not smokeDrinks sociallyWorks [employer] Family HistoryMother 85 hx of essential hypertension and CA of LungFather 90 CA prostate and esophagusNo brothers or sisters Rodolfo Topete MD [address] [facility], [place], [address], [facility] [employer] 10/18/2023 16:24:42 02/06/2024 text/html Patient Name: Danny castro) HodgeDate Of Service: January ( 02.06.2024 ): 1950 Age: 73 There has been approximately a 2 lb weight loss since 10/18/2023. This represents approximately a .9% change in weight. Weight change attributable to lifestyle changes. Vital Signs:Blood Pressure: Sitting Rt. Arm 120/64Pulse: Sitting 77 /min and RegularRespiratory Rate: 12Height 71 in or 1.8 mWeight 212 lb or 96.2 kgBMI 29.6Temperature: 97.6 F or 36.4 CPulse Oximetry: 97 % at rest on no oxygen Chief Complaint: Addressed in HPI Problems or conditions discussed in the HPI were the only ones reviewed during the encounter.Only social and family history addressed in the HPI were reviewed during this encounter. Attendant(s): NoneConstitutional and Systemic Symptoms:none Medication Reconciliation: from medication list. Wozthyugqcf87/25/2023: CPAP diet elevated 15.4 suggesting significant insulin [...] of Present Illness #1. Essential Hypertension: Stage: Stage I Interval Neurological Complaints no headaches, dizziness, weakness, visual changes, ataxia, aphasia and apraxia. No shortness of breath, orthopnea or cardiovascular [...] non healing lesions. The last HAIC was <6.5. Average blood sugars unknown. Checking sugars : several times a week Medication Types Include: Metformin and Insulin Secondary complications include none. Macro-vascular complications include none. Therapy reviewed regarding diabetic management and include Lantus Solostar Pen and Metformin Hydrochloride Er Compliance: good Renal Protection: ARBs Lipid management: statins Urinary microalbumin: A1 . Ophthalmological: has not seen eyed doctor in last year and instructed to make appointment with the gambling dealer or director outpatient services#4. GERD clinically stable currently taking pantoprazole and doing well. No interval complaints of any new problems. Active Medication ListNeurontin 300 MG (CAPSULE - ORAL) One TidAtorvastatin [...] 50 MG TABLET One DailyLantus Solostar Pen 10 Units Qd Vaccination and Hvffkzcmugel6814-51 Covid Booster Aifzkb9464-79 Covid Pfizer Surgical Fysiigw9304-94 Bilateral Mhpegntwk2994-13 Left Inguinal Hernia Preventative Cmeflbh3812/16/2023 LDCT / NJODCJAGO39/14/2024 COLONOSCOPY ( 5 YEARS ) /07/2023 HAIC 9.408/06/2022 MICRO ALBUMIN 3.6 UG/ML N011/17/2021 ALBUMIN 4.5 G/DL N009/18/2021 PSA 2.1 NG/ML N1 WLYYGXNKMXRDY74/19/2017 UPPER ENDOSCOPY Social HistoryDoes not smokeDrinks socially3[employer] Family HistoryMother 85 hx of essential hypertension and CA of LungFather 90 CA prostate and esophagusNo brothers or sisters Rodolfo Topete MD [address] [facility], [place], [address], [facility] [employer] 02/06/2024 12:18:34 06/04/2024 text/html Patient Name: Danny castro) [facility]: May ( 06.04.2024 ): 1950 [...] Systemic Symptoms:none Medication Reconciliation: from medication list. Yswntyxduqm46/25/2023: CPAP diet elevated 15.4 suggesting significant insulin [...] offered to be evaluated and instructed by meringuer on weight loss diet. Active Medication ListGlimepiride [...] COVID PFIZER(X) 2021-08 COVID BOOSTER PFIZER Surgical Gnxxmwi2715-01 Bilateral Xpxpifrdy9624-25 Left Inguinal Hernia Preventative Testing( ) 03/27/2024 Albumin 4.3 G/DL( ) 03/27/2024 PSA 1.3 NG/ML 03/27/2026( ) 12/16/2023 LDCT 12/15/2024( ) 12/10/2023 Optometry( ) 11/07/2023 Colonoscopy ( 5 Years ) 11/06/2028( ) 06/06/2023 HAIC 9.4( ) 04/05/2022 Micro Albumin 3.6 UG/ML N( ) 06/09/2021 Ophthalmology( ) 03/13/2017 Upper Endoscopy Social HistoryDoes not smokeDrinks [employer] Family HistoryMother 85 hx of essential hypertension and CA of LungFather 90 CA prostate and esophagusNo brothers or sisters Rodolfo Topete MD [address] [facility], [place], [address], [place] [employer] 06/04/2024 16:48:58 10/08/2024 text/html Patient Name: Danny castro) [facility]Date [facility]: September ( 10.08.2024 ): 1950 Age: 74 There has been approximately a 4 lb weight gain since 06/04/2024. This represents approximately a 1.8% change in weight. Weight change attributable to lifestyle changes. Vital Signs:Blood Pressure: Sitting Rt. Arm 120/68Pulse: Sitting 83 /min and RegularRespiratory Rate: 16Height 71 in or 1.8 mWeight 222 lb or 100.7 kgBMI 31.0Temperature: 97 F or 36.1 CPulse Oximetry: 95 % at rest on no oxygen Chief Complaint: Addressed in HPI Problems or conditions discussed in the HPI were the only ones reviewed during the encounter.Only social and family history addressed in the HPI were reviewed during this encounter. Attendant(s): NoneConstitutional and Systemic Symptoms:none Medication Reconciliation: from medication list. Xwqovciazub71/25/2023: CPAP diet elevated 15.4 suggesting significant insulin [...] of Present Illness #1. Essential Hypertension: Stage: Stage I Interval Neurological Complaints no headaches, dizziness, weakness, visual changes, ataxia, aphasia and apraxia. No shortness of breath, orthopnea or cardiovascular [...] lesions. The last HAIC was DCCT HAIC: 8.3 Calculated MB mg%. CGM: Recommend use to better control DM. Average blood sugars unknown. Checking sugars : approximately once daily. Medication Types Include: Metformin, Sulfonylureas and Insulin Secondary complications include none. Macro-vascular complications include none. Therapy reviewed regarding diabetic management and include Glimepiride, Lantus Solostar Pen and Metformin Hydrochloride Er Compliance: non-compliant Renal Protection: ARBs Lipid management: statins Urinary microalbumin: A1 . Ophthalmological: has seen eye doctor within the last year. Control: Inadequate control > 8 #4. Sleep Apnea: Type: EDIN Current doing well. No significant daytime somnolence or problems performing daily chores. Using CPAP on nightly basis . Overall has shown considerable improvement.[place] Sleepiness ScaleSitting and ReadinWatching TV: 1Sitting Inactive in a Public Place: 1Passenger in a Car: 1Lying Down in Afternoon: 1Sitting and Talking to someone: 0Sitting quietly after lunch: 1In a car while stopped or drivinScore Interpretation: 0-7 No evidence of abnormally sleepy #5. Hx of obesity. Currently Class 1 Obesity BMI 30-34.99. Has tried numerous dietary support and supplements with no benefit. Instructed on the health consequences of the obese status particularly cancer - diabetes and heart disease. Discussed other modalities of weight loss GLP-1 medications that are used to treat diabetes . Potential candidate for bariatric surgery: No. Wishes to be evaluated by Dietary: No and was offered to be evaluated and instructed by meringuer on weight loss diet. Active Medication ListGlimepiride 2 MG TABLET One Twice DailyNeurontin 300 MG (CAPSULE - ORAL) One [...] COVID PFIZER(X) 2021-08 COVID BOOSTER PFIZER Surgical Amcrlhj1061-64 Bilateral Wamduxwyb5581-54 Left Inguinal Hernia Preventative Testing( ) 07/17/2024 Albumin 4.2 G/DL( ) 07/17/2024 HAIC 8.3 % H( ) 05/29/2024 CT Thorax( ) 03/27/2024 PSA 1.3 NG/ML 03/27/2026( ) 12/16/2023 LDCT 12/15/2024( ) 12/10/2023 Optometry( ) 11/07/2023 Colonoscopy ( 5 Years ) 11/06/2028( ) 04/05/2022 Micro Albumin 3.6 UG/ML N( ) 06/09/2021 Ophthalmology(X) 03/13/2017 Upper Endoscopy 03/13/2022 Social HistoryDoes not smokeDrinks [employer] Family HistoryMother 85 hx of essential hypertension and CA of LungFather 90 CA prostate and esophagusNo brothers or sisters Rodolfo Topete MD [address] [facility], [place], [address], [place] [employer] 10/08/2024 11:53:46
--- OUTSIDE RECORDS SUMMARY | 2024-10-18 16:19 | XMS_ITS | Clinical Summary ---
Author Organization [facility] [place] Address [address] [place] [address] Care Team Providers Care Hand Straightener Name Role Phone Rodolfo Topete MD Primary Care Provider Allergies Active Allergy Reactions Criticality Noted Date Comments Penicillins Other (See comments) Low 05/22/2017 Medications acetaminophen (TYLENOL) 325 mg tablet Take 650 mg by mouth every 30 minutes as needed 9 Active ALPRAZolam (XANAX) 1 mg tablet 1 mg 8 Active folic acid (FOLVITE) 1 mg tablet Take 1 mg by mouth daily 9 Active gabapentin (NEURONTIN) 300 mg capsule Take 300 mg by mouth 2 times daily 9 Active glimepiride (AMARYL) 2 mg tablet Take 2 mg by mouth Active metFORMIN (GLUCOPHAGE) 500 mg tablet Take 500 mg by mouth 2 times daily 9 Active coquille oil, bulk, oil Apply topically Active methotrexate 2.5 mg tablet TAKE 4 TABLETS BY MOUTH EVERY 7 DAYS [address] (PROTONIX) 20 mg EC tablet Take 20 mg by mouth daily 9 Active prochlorperazin e (COMPAZINE) 10 mg tablet Take 10 mg by mouth every 8 hours as needed Active traMADol (ULTRAM) 50 mg tablet Take 50 mg by mouth every 6 hours as needed 9 Active Active Problems No known active problems Social History Tobacco Use Types Packs/Day Years Used Date Smoking Tobacco: Never Personal Safety Answer Date Recorded Getting School Help Needed Not on file 11/08 Sex and Gender Information Value Date Recorded Sex Assigned at Not on file 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 [employer] Gender Identity Not on file Sexual Orientation Not on file Obstetrics History Last Filed Vital Signs Vital Sign Reading Time Taken Comments Blood Pressure 118/76 07/22/2019 8:28 AM FOLDING MACHINE FEEDER Pulse 73 07/22/2019 8:28 AM FOLDING MACHINE FEEDER Temperature 36.1 C (97 F) 07/22/2019 8:28 AM FOLDING MACHINE FEEDER Respiratory Rate - - Oxygen Saturation 97% 07/22/2019 8:28 AM FOLDING MACHINE FEEDER Inhaled Oxygen Concentration - - Weight 95.3 kg (210 lb) 07/22/2019 8:28 AM FOLDING MACHINE FEEDER Height 182.9 cm (6') 07/22/2019 8:28 AM FOLDING MACHINE FEEDER Body Mass Index 28.48 07/22/2019 8:28 AM FOLDING MACHINE FEEDER Plan of Treatment Not on file Insurance MEDICARE [facility] HMO/PPO Address: [address] [address] [place] [address] Care Teams Hand Straightener Relationship Specialty Start Date End Date Rodolfo Topete MD [address] [address] PCP - General Internal Medicine 06/15/19
--- OUTSIDE RECORDS SUMMARY | 2024-10-18 16:19 | XMS_ITS | Clinical Summary ---
Author Organization [facility] Address [address] [place] [address] Care Team Providers Care Sales Development Manager Name Role Phone Danny Pink MD Unavailable Rodolfo Topete MD Primary Care Provider Source Comments [facility],non-owned Affiliates and Associated Physician Practices is amultiple site organization consisting of ambulatory clinics and hospital sitesin [place], [place], [place] and [place]. This disclosure is being madepursuant to the Care Everywhere program and may not contain all information available regarding this patient. Last updated 18.[facility] Allergies Active Allergy Reactions Criticality Noted Date Comments Garlic Other 12/31/2018 Acid reflex Peppers Other 12/31/2018 ACID REFLEX. Onion Other 12/31/2018 ACID REFLEX Penicillins 05/22/2017 Piper Longum Other 12/31/2018 Acid reflex Medications * Be aware that medications may not be up to date on this document. Alwaysverify current medications with the patient. Medication Sig Dispensed Refills Start Date End Date Status Cyanocobalamin (VITAMIN B 12 PO) Take 4 tablets by mouth Active MULTIPLE VITAMINS PO Take 1 tablet by mouth once daily Active gabapentin (NEURONTIN) 300 MG capsule Take 1 capsule by mouth 2 times daily 60 capsule 5 10/29/2018 Active acetaminophen (TYLENOL) 325 MG tablet Take 2 tablets by mouth every 4 hours as needed Maximum allowable Acetaminophen amount = 4 Grams (4000 mg) / 24 hours. 01/02/2019 Active glimepiride (AMARYL) 2 MG tablet Take 2 mg by mouth daily with breakfast Active prochlorperazine (COMPAZINE) 10 MG tablet Take 10 mg by mouth every 8 hours as needed for Nausea/Vomiting Active metFORMIN (GLUCOPHAGE) 500 MG tablet Take 500 mg by mouth 2 times daily 02/02/2019 Active pantoprazole EC (PROTONIX) 20 MG tablet Take 20 mg by mouth once daily 02/08/2019 Active [place] Oil Active traMADol (ULTRAM) 50 MG tablet Take 1 tablet by mouth every 6 hours as needed 30 tablet 04/15/2019 Active folic acid (FOLVITE) 1 MG tablet Take 1 tablet by mouth once daily 90 tablet 4 04/15/2019 Active methotrexate 2.5 MG tablet Take 4 tablets by mouth every 7 days 16 tablet 04/24/2019 Active methotrexate 2.5 MG tablet TAKE 4 TABLETS BY MOUTH EVERY 7 DAYS 16 tablet 04/24/2019 Active Active Problems Problem Noted Date Diagnosed Date Impaired mobility and ADLs 01/01/2019 Uncontrolled type 2 diabetes mellitus with hyper glycemia 12/31/2018 Fracture of right orbital floor 12/30/2018 Face lacerations, initial encounter 12/30/2018 Neuropathy 10/29/2018 Hypokalemia 10/29/2018 Nausea and vomiting 05/08/2018 Rheumatoid arthritis involving multiple sites Entrapment of inferior rectus muscle Fall Hyperglycemia Social History Tobacco Use Types Packs/Day Years Used Date Smoking Tobacco: Never Smokeless Tobacco: Never Sex and Gender Information Value Date Recorded Sex Assigned at Male 03/30/2024 6:43 PM CDT Gender Identity Male 03/30/2024 6:43 PM CDT Sexual Orientation Straight 03/30/2024 6: 43 PM CDT Last Filed Vital Signs Vital Sign Reading Time Taken Comments Blood Pressure 107/71 04/15/2019 3:02 PM CDT Pulse 89 04/15/2019 3:02 PM CDT Temperature 36.4 C (97.5 F) 01/02/2019 12:09 PM CDT Respiratory Rate 20 01/02/2019 12:09 PM CDT Oxygen Saturation 96% 01/02/2019 12:09 PM CDT Inhaled Oxygen Concentration 28% 12/31/2018 1 0:05 PM CDT Weight 94.8 kg (209 lb) 04/15/2019 3:02 PM CDT Height 177.8 cm (5' 10 ) 12/30/2018 7:22 PM CDT Body Mass Index 29.99 12/30/2018 7:22 PM CDT Plan of Treatment Health Maintenance Due Date Last Done Comments COLOGUARD (AGES 45-75) - COLON CA SCREENING 1950 COLON MONITORING 1950 COLONOSCOPY - COLON CA SCREENING 1950 CT COLONOGRAPHY - COLON CA SCREENING 1950 Colorectal Cancer Screening 1950 FIT - COLON CA SCREENING 1950 FLEX SIG - COLON CA SCREENING 1950 DTAP/TDAP/TD VACCINES (1 - Tdap) 1969 PNEUMOCOCCAL VACCINE 50+ (1 of 2 - PCV) 1969 DIABETES-STATIN 1990 ZOSTER VACCINE (1 of 2) 2000 Respiratory Syncytial Virus (RSV) Vaccine Pt: or over 60 yrs (1 - Risk 60-74 years 1-dose series) 2010 DIABETES-FOOT EXAM WITH MONOFILAMENT 12/31/2018 DIABETES-HGB A1C 04/02/2019 12/31/2018, 12/31/2018 DIABETES-SERUM CREATININE 04/15/20202018, 12/31/2018, 12/30/2018, Additional history exists DIABETES RETINOPATHY SCREENING 01/28/2021 01/28/2019, 12/30/2018 COVID-19 VACCINE ( season) 2024 INFLUENZA VACCINE (#1) 2024 DEPRESSION SCREENING 08/26/2024 DIABETES - URINE PROTEIN SCREENING 08/26/2024 MEDICARE AWV CALENDAR YEAR 2024 HEPATITIS C SCREENING Completed 03/14/2018 HEPATITIS B VACCINE Aged Out No longe r eligible based on patient's age to complete this topic HIB VACCINE Aged Out No longer eligi ble based on patient's age to complete this topic HPV VACCINE Aged Out No longer eligi ble based on patient's age to complete this topic MENINGOCOCCAL (Group B) VACCINE Aged Out No longer eligible based on patient's age to complete this topic MENINGOCOCCAL VACCINE Aged Out No kylah parvez eligible based on patient's age to complete this topic Medical Devices Implanted Type Area Retarder Operator Device Identifier Shelf Expiration Date Model / Serial / Lot Screw 1.55mm 2.65mm 4mm Willy Slfrancoise Drl Implanted:Qty: 1 on 12/30/2018 by Mitzy Berkowitz MD at [facility] Right: Orbit Synthes Maxillofacial 224 .01 / / Screw 1.55mm 2.65mm 4mm Willy Slfrancoise Drl Implanted:Qty: 1 on 12/30/2018 by Mitzy Berkowitz MD at [facility] Right: Orbit Synthes Maxillofacial 224 .01 / / Plate 3d Sm .4mm Preform Contr Edg Seg Implanted:Qty: 1 on 12/30/2018 by Mitzy Berkowitz MD at [facility] Right: Orbit Synthes Maxillofacial 811 / / Explanted Type Area Retarder Operator Device Identifier Shelf Expiration Date Model / Serial / Lot Impl Orbt Suprafoil Nyl [id number] Explanted:Qty: 1 on 12/30/2018 by Mitzy Berkowitz MD at [facility] Right: Eye S [employer] 08/30/2020 -SS-035 / / [id number] Procedures Procedure Name Priority Date/Time Associated Diagnosis Comments COMPREHENSIVE METABOLIC PANEL Routine 04/15/2019 3:41 PM CDT Rheumatoid arthritis involving multiple sites, unspecified rheumatoid factor presence EYE EXAM 01/28/2019 11:50 AM CDT HEMOGLOBIN A1C Routine 12/31/2018 3:59 AM CDT Face lacerations, initial encounter HEPATITIS SCREEN ACUTE Routine 8 10:40 AM CDT Abnormal LFTs from Last 3 Months or Most Recently Relevant to Health Maintenance Results * (ABNORMAL) COMPREHENSIVE METABOLIC PANEL (04/15/2019 3:41 PM CDT) Glucose 110(H) 74 - 106 mg/dL [facility] INSURANCE BILL BUN 16 8.4 - 25.7 mg/dL [facility] INSURANCE BILL Creatinine 1.12 0.73 - 1.18 mg/dL [facility] INSURANCE BILL eGFR by MDRD >60 >60 mL/min/1.7 3m2 [facility] INSURANCE BILL eGFR by MDRD >60 >60 mL/min/1.7 3m2 [facility] INSURANCE BILL Sodium 140 136 - 145 mmol/L [facility] INSURANCE BILL Potassium 3.9 3.5 - 5.1 mmol/L [facility] INSURANCE BILL Chloride 103 98 - 107 mmol/L [facility] INSURANCE BILL CO2 29 23 - 31 mmol/L [facility] INSURANCE BILL Calcium 9.2 8.4 - 10.2 mg/dL [facility] INSURANCE BILL Protein Total 7.2 6.4 - 8.3 gm/dL [facility] INSURANCE BILL Albumin 4.0 3.2 - 4.6 gm/dL [facility] INSURANCE BILL Bilirubin Total 0.4 0.2 - 1.2 mg/dL [facility] INSURANCE BILL Alkaline Phosphatase 123 40 - 150 U/L [facility] INSURANCE BILL AST 22 5 - 34 U/L [facility] INSURANCE BILL ALT 22 13 - 61 U/L [facility] INSURANCE BILL Blood BLOOD SPECIMEN / Unknown 04/15/2019 3:41 PM CDT 04/15/2019 Narrative Resulting Agency Comment Lab Testing performed at: [place] [address] [place] [id number] Danny Pink MD LAB - CHEMISTRY ORD ERABLES [facility] INSURANCE BILL [address] [place] [address] * EYE EXAM (01/28/2019 11:50 AM CDT) Anatomical Region Laterality Modality Other Narrative 01/28/2019 11:50 AM CDT Ordered by an unspecified provider. Scanned Document SCANNING ONLY * (ABNORMAL) HEMOGLOBIN A1C (12/31/2018 3:59 AM CDT) Hemoglobin A1c 13.4(H) 4.4 - 6.3 % 12/31/2018 9:49 AM CDT [facility] Estimated Average Glucose 338 mg/dL 12/31/2018 9:49 AM CDT [facility] Comment: HbA1c Interpretation: Treatment target values recommended by ADA and other clinical organizations should be used to evaluate metabolic control in patients. Treatment Target Values: Normal : < 5.7% Pre-diabetes: 5.7-6.4% Diabetes: Equal to or greater than 6.5% Reference: [place] Diabetes Association Standards of Care in Diabetes -2014 In patients 70 years and older consider HbA1c target range of 7.0-7.5% Reference: Diabetes Mellitus in Older People: Position Statement on behalf of the International Association of Gerontology and Geriatrics (IAGG), the Diabetes Working Republican for Older People (EDWPOP), and the International Task Force of Experts in Diabetes. Benito Diop et al. J [place] Medical Directors Association. 2012 Test results diagnostic of diabetes should be repeated for confirmation. The Sebia Capillary 2 assay for the measurement of HbA1c is a National Glycohemoglobin Standardization Program (NGSP)certified method. Blood BLOOD SPECIMEN / Unknown Lab Venipuncture / Unknown 12/31/2018 3:59 AM CDT 12/31/2018 4:02 AM CDT Vern Lipscomb MD LAB - CHEMISTRY [place] [address] [phone] * HEPATITIS SCREEN ACUTE (03/14/2018 10:40 AM CDT) Hepatitis A Virus Antibody IgM Negative Negative [facility] INSURANCE BILL Hepatitis B Virus Surface Antigen Negative Negative [facility] INSURANCE BILL Hepatitis B Core Virus Antibody IgM Negative Negative [facility] INSURANCE BILL Hepatitis C Antibody 0.1 0.0 - 0.9 s/co ratio [facility] INSURANCE BILL Comment: Negative: < 0.8 Indeterminate: 0.8 - 0.9 Positive: > 0.9 . The CDC recommends that a positive HCV antibody result be followed up with a HCV Nucleic Acid Amplification test ([id number]). Blood BLOOD SPECIMEN / Unknown 03/14/2018 10:40 AM CDT 03/14/2018 Narrative Resulting Agency Comment [facility] [address] [phone] Danny Pink MD LAB - CHEMISTRY NOLAN GALLAGHER [facility] INSURANCE BILL [address] [place] [address] from Last 3 Months or Most Recently Relevant to Health Maintenance Insurance Payer Benefit Plan / Group Subscriber ID Effective Dates Phone Address Type [facility] MANAGED MEDICARE ADV [facility] STATE RETIREES MEDICARE ADV [id number] 08/27/2024-Pres ent [address] [address] [place] [address] Medicare-Man aged Care MEDICARE MEDICARE PART A AND B [id number] 07/26/2015-Pre sent [address] [place] [address] Medicare UHC MANAGED MEDICARE ADV [facility] STATE RETIREES MEDICARE ADV [id number] 08/27/2024-Pres ent [address] [address] [place] [address] Medicare-Man aged Care [facility] UMR NON-PPO [id number] Effective for all dates [address] [address] [place] [address] PPO [facility] UMR NON-PPO [id number] Effective for all dates [address] [address] [place] [address] PPO [facility] MANAGED MEDICARE ADV [facility] STATE RETIREES MEDICARE ADV [id number] 08/27/2024-Pres ent [address] [address] [place] [address] Medicare-Man aged Care MEDICARE WPS MEDICARE PART B [id number] 02/23/2017-Pres ent [address] [address] [place] [address] Medicare MEDICARE WPS MEDICARE PART B [id number] 02/23/2017-Pres ent [address] [address] [place] [address] Medicare MEDICARE WPS MEDICARE PART B [id number] 02/23/2017-Pres ent [address] [address] [place] [address] Medicare MEDICARE WPS MEDICARE PART B [id number] 02/23/2017-Pres ent [address] [address] [place] [address] Medicare MEDICARE WPS MEDICARE PART B [id number] 02/23/2017-Pres ent [address] [address] [place] [address] Medicare MEDICARE WPS MEDICARE PART B [id number] 02/23/2017-Pres ent [address] [address] [place] [address] Medicare MEDICARE WPS MEDICARE PART B [id number] 02/23/2017-Pres ent [address] [address] [place] [address] Medicare [facility] UMR NON-PPO [id number] Effective for all dates [address] [address] [place] [address] PPO [facility] UMR [place] NAM [id number] 08/26/2014-Pres ent [address] [place] [address] PPO Advance Directives * Full Code (Latest Code Status on File) Date Activated Date Inactivated Comments 12/31/2018 3:19 AM 01/02/2019 7:51 PM * Full Code Date Activated Date Inactivated Comments 12/31/2018 12:09 AM 12/31/2018 3:19 AM * Full Code Date Activated Date Inactivated Comments 12/30/2018 11:59 PM 12/31/2018 12:09 AM Care Teams Sales Development Manager Relationship Specialty Start Date End Date Rodolfo Topete MD [address] [place] [phone] PCP - General Internal Medicine 12/30/18 Danny Pink MD Rheumatology 04/10/18
--- OUTSIDE RECORDS SUMMARY | 2024-10-18 16:19 | XMS_ITS | Referral Summary ---
Author Organization [facility] Address [address] [place] [address] Care Team Providers Care Machine Molder Squeeze Name Role Phone Rodolfo Topete MD Primary [...] by mouth 2 times daily 9 Active [employer] [place] oil, bulk, oil Apply topically Active methotrexate [...] on file Legal Sex Male 1:21 PM MILITARY SOURCE OPERATIONS SPECIALIST Gender Identity Not on file Sexual Orientation Not on file Last Filed Vital Signs Vital Sign Reading Time Taken Comments Blood Pressure 118/76 07/22/2019 8:28 AM MILITARY SOURCE OPERATIONS SPECIALIST Pulse 73 07/22/2019 8:28 AM MILITARY SOURCE OPERATIONS SPECIALIST Temperature 36.1 C (97 F) 07/22/2019 8:28 AM MILITARY SOURCE OPERATIONS SPECIALIST Respiratory Rate - - Oxygen Saturation 97% 07/22/2019 8:28 AM MILITARY SOURCE OPERATIONS SPECIALIST Inhaled Oxygen Concentration - - Weight 95.3 kg (210 lb) 07/22/2019 8:28 AM MILITARY SOURCE OPERATIONS SPECIALIST Height 182.9 cm (6') 07/22/2019 8:28 AM MILITARY SOURCE OPERATIONS SPECIALIST Body Mass Index 28.48 07/22/2019 8:28 AM MILITARY SOURCE OPERATIONS SPECIALIST Plan of Treatment Not on file Insurance MEDICARE [facility] HMO/PPO Address: [address] [address] [place] [address] Care Teams Machine Molder Squeeze Relationship Specialty Start Date End Date Rodolfo Topete MD [address] [address] PCP - General Internal Medicine 06/15/19
--- OUTSIDE RECORDS SUMMARY | 2024-10-18 16:19 | XMS_ITS | Referral Summary ---
Author Organization [facility] Address [address] [place] [address] Care Team Providers Care Plumber Supervisor Name Role Phone Danny Pink MD Unavailable Rodolfo Topete MD Primary Care Provider [phone] Source Comments [facility],non-owned Affiliates and Associated Physician Practices is amultiple site organization consisting of ambulatory clinics and hospital sitesin [place], [place], [place] and [place]. This disclosure is being madepursuant to the Care Everywhere program and may not contain all information available regarding this patient. Last updated 18.[facility] Allergies Active Allergy Reactions Criticality Noted Date [...] mg by mouth once daily 02/08/2019 Active [place] Oil Active traMADol (ULTRAM) 50 MG tablet [...] Mass Index 29.99 12/30/2018 7:22 PM CDT Functional Status Functional Status Response Date of Assess ment Is person deaf or have serious hearing difficult y? No 01/02/2019 Is person blind or have serious difficulty seein g? Yes 01/02/2019 Does person have serious dif ficulty walking/climbing stairs? No 01/02/2019 Does person have difficulty dressing/bathing? No 01/02/2019 Does person have difficulty doing errands alone? Yes 01/02/2019 Cognitive Status Response Date of Assessm ent Does person have difficulty concentrating/remembering/making decisions? No 01/02/2019 Plan of Treatment Not on file Medical Devices Implanted Type Area Workers' Compensation Claims Examiner Device Identifier Shelf Expiration Date Model / Serial / Lot Screw 1.55mm 2.65mm 4mm Mdfc Slf Drl Implanted:Qty: 1 on 12/30/2018 by Mitzy Berkowitz MD at [facility] Right: Orbit Synthes Maxillofacial [id number] .01 / / Screw 1.55mm 2.65mm 4mm Mdfc Slf Drl Implanted:Qty: 1 on 12/30/2018 by Mitzy Berkowitz MD at [facility] Right: Orbit [employer] Maxillofacial [id number] .01 / / Plate 3d Sm .4mm Preform Contr Edg Seg Implanted:Qty: 1 on 12/30/2018 by Mitzy Berkowitz MD at [facility] Right: Orbit [employer]ynthes Maxillofacial 04.503.811 / / Explanted Type Area Workers' Compensation Claims Examiner Device Identifier Shelf Expiration Date Model / Serial / Lot Impl Orbt Suprafoil Nyl [id number] Explanted:Qty: 1 on 12/30/2018 by Mitzy Berkowitz MD at [facility] Right: Eye S [employer] 08/30/2020 F-SS-035 / / [id number] Procedures Procedure Name Priority Date/Time Associated Diagnosis [...] Resulting Agency Comment Lab Testing performed at: [facility] [address] [place] [id number] Danny Pink MD LAB - CHEMISTRY ORD ERABLES [facility] INSURANCE BILL [address] [address] * EYE EXAM (01/28/2019 11:50 AM CDT) Anatomical Region Laterality Modality Other Narrative 01/28/2019 11:50 AM CDT Ordered by an unspecified provider. Scanned Document SCANNING ONLY * (ABNORMAL) HEMOGLOBIN A1C (12/31/2018 3:59 AM CDT) Pathologist [facility] Hemoglobin A1c 13.4(H) 4.4 - 6.3 % 12/31/2018 9:49 AM CDT [facility] Estimated Average Glucose 338 mg/dL 12/31/2018 9:49 AM CDT [facility] Comment: HbA1c Interpretation: Treatment target values recommended by ADA and other clinical organizations should be used to evaluate metabolic control in patients. Treatment Target Values: Normal : < 5.7% Pre-diabetes: 5.7-6.4% Diabetes: Equal to or greater than 6.5% Reference: [place] Diabetes Association Standards of Care in Diabetes -2014 In patients 70 years and older consider HbA1c target range of 7.0-7.5% Reference: Diabetes Mellitus in Older People: Position Statement on behalf of the International Association of Gerontology and Geriatrics (IAGG), the Diabetes Working Republican for Older People (EDWPOP), and the International Task Force of Experts in Diabetes. Benito Diop, et al. J [place] Medical Directors Association. 2012 Test results diagnostic of diabetes should be repeated for confirmation. The Sebia Capillary 2 assay for the measurement of HbA1c is a National Glycohemoglobin Standardization Program (NGSP)certified method. Blood BLOOD SPECIMEN / Unknown Lab Venipuncture / Unknown 12/31/2018 3:59 AM CDT 12/31/2018 4:02 AM CDT Vern Lipscomb MD LAB - CHEMISTRY [place] MENDIET[place] [facility] [address] [phone] * HEPATITIS SCREEN ACUTE (03/14/2018 10:40 AM [...] with a HCV Nucleic Acid Amplification test ([id number]). Blood BLOOD SPECIMEN / Unknown 03/14/2018 10:40 AM CDT 03/14/2018 Narrative Resulting Agency Comment [facility] [place] [address] [facility] [id number] Danny Pink MD LAB - CHEMISTRY ORD ERABLES [facility] INSURANCE BILL [address] [place] [address] from Last 3 Months or Most Recently Relevant to Health Maintenance Insurance Payer Benefit Plan / Group Subscriber ID Effective Dates Phone Address Type [facility] MANAGED MEDICARE ADV [facility] STATE RETIREES MEDICARE ADV [id number] 08/27/2024-Pres ent [address] [address] [place] [address] Medicare-Man aged Care MEDICARE MEDICARE PART A AND B [id number] 07/26/2015-Pre sent [address] [place] [address] Medicare UHC MANAGED MEDICARE ADV [facility] STATE RETIREES MEDICARE ADV [id number] 08/27/2024-Pres ent [address] [address] [place] [address] Medicare-Man aged Care [facility] UMR NON-PPO [id number] Effective for all dates [address] [address] [place] [address] PPO [facility] UMR NON-PPO [id number] Effective for all dates [address] [address] [place] [address] PPO [facility] MANAGED MEDICARE ADV [facility] STATE RETIREES MEDICARE ADV [id number] 08/27/2024-Pres ent [address] [address] [place] [address] Medicare-Man aged Care MEDICARE WPS MEDICARE PART B [id number] 02/23/2017-Pres ent [address] [address] [place] [address] Medicare MEDICARE WPS MEDICARE PART B [id number] 02/23/2017-Pres ent [address] [address] [place] [address] Medicare MEDICARE WPS MEDICARE PART B [id number] 02/23/2017-Pres ent [address] [address] [place] [address] Medicare MEDICARE WPS MEDICARE PART B [id number] 02/23/2017-Pres ent [address] [address] [place] [address] Medicare MEDICARE WPS MEDICARE PART B [id number] 02/23/2017-Pres ent [address] [address] [place] [address] Medicare MEDICARE WPS MEDICARE PART B [id number] 02/23/2017-Pres ent [address] [address] [place] [address] Medicare MEDICARE WPS MEDICARE PART B [id number] 02/23/2017-Pres ent [address] [address] [place] [address] Medicare [facility] [facility] UHC UMR NON-PPO [id number] Effective for all dates [address] [address] [place] [address] PPO [facility] UMR [place] NAM [id number] 08/26/2014-Pres ent [address] [place] [address] PPO Advance Directives * Full Code (Latest Code Status on File) Date Activated Date Inactivated Comments 12/31/2018 3:19 AM 01/02/2019 7:51 PM * Full Code Date Activated Date Inactivated Comments 12/31/2018 12:09 AM 12/31/2018 3:19 AM * Full Code Date Activated Date Inactivated Comments 12/30/2018 11:59 PM 12/31/2018 12:09 AM Care Teams Plumber Supervisor Relationship Specialty Start Date End Date Rodolfo Topete MD [address] [place] [address] [address] [place] [phone] PCP - General Internal Medicine 12/30/18 Danny Pink MD Rheumatology 04/10/18
--- OUTSIDE RECORDS SUMMARY | 2024-10-18 16:19 | XMS_ITS | Patient Health Summary ---
Author Organization [facility] Address [address] [place] [address] Care Team Providers Care Product Manager Medical Device Name Role Phone Danny Pink MD Unavailable [phone] Rodolfo Topete MD Primary Care Provider [phone] Note from [facility],non-owned Affiliates and Associated Physician Practices is amultiple site organization consisting of ambulatory clinics and hospital sitesin [place], [place], [place] and [place]. This disclosure is being madepursuant to the Care Everywhere program and may not contain all information available regarding this patient. Last updated 18.[facility] Allergies * Garlic(Other) * Peppers(Other) * Onion(Other) * Penicillins * Piper Longum(Other) Medications * Be aware that medications may not be up to date on this document. Alwaysverify current medications with the patient. * Cyanocobalamin (VITAMIN B 12 PO) Take 4 tablets by mouth * MULTIPLE VITAMINS PO Take 1 tablet by mouth once daily * gabapentin (NEURONTIN) 300 MG capsule(Started 10/29/2018) Take 1 capsule by mouth 2 times daily 5 refills remaining * acetaminophen (TYLENOL) 325 MG tablet(Started 01/02/2019) Take 2 tablets by mouth every 4 hours as needed Maximum allowable Acetaminophen amount = 4 Grams (4000 mg) / 24 hours. * glimepiride (AMARYL) 2 MG tablet Take 2 mg by mouth daily with breakfast * prochlorperazine (COMPAZINE) 10 MG tablet Take 10 mg by mouth every 8 hours as needed for Nausea/Vomiting * metFORMIN (GLUCOPHAGE) 500 MG tablet(Started 02/02/2019) Take 500 mg by mouth 2 times daily * pantoprazole EC (PROTONIX) 20 MG tablet(Started 02/08/2019) Take 20 mg by mouth once daily * [place] Oil * traMADol (ULTRAM) 50 MG tablet(Started 04/15/2019) Take 1 tablet by mouth every 6 hours as needed * folic acid (FOLVITE) 1 MG tablet(Started 04/15/2019) Take 1 tablet by mouth once daily 4 refills remaining * methotrexate 2.5 MG tablet(Started 04/24/2019) Take 4 tablets by mouth every 7 days * methotrexate 2.5 MG tablet(Started 04/24/2019) TAKE 4 TABLETS BY MOUTH EVERY 7 DAYS Active Problems Problem Noted Date Diagnosed Date [...] Mass Index 29.99 12/30/2018 7:22 PM CDT Medical Devices Implanted Type Area Molding Machine Operator Device Identifier Shelf Expiration Date Model / Serial / Lot Screw 1.55mm 2.65mm 4mm Mdfc Slf Drl Implanted:Qty: 1 on 12/30/2018 by Mitzy Berkowitz MD at [facility] Right: Orbit Synthes Maxillofacial .224 .01 / / Screw 1.55mm 2.65mm 4mm Mdangelia Slf Drl Implanted:Qty: 1 on 12/30/2018 by Mitzy Berkowitz MD at [facility] Right: Orbit Synthes Maxillofacial .224 .01 / / Plate 3d Sm .4mm Preform Contr Edg Seg Implanted:Qty: 1 on 12/30/2018 by Mitzy Berkowitz MD at [facility] Right: Orbit Synthes Maxillofacial .811 / / Explanted Type Area Molding Machine Operator Device Identifier Shelf Expiration Date Model / Serial / Lot Impl Orbt Suprafoil Nyl [id number] Explanted:Qty: 1 on 12/30/2018 by Mitzy Berkowitz MD at [facility] Right: Eye S [employer] 08/30/2020 -SS-035 / / [id number] Procedures * CO LIVER ELASTOGRAPHY(Performed 03/30/2024) Performed for Nonalcoholic fatty liver disease * DERMATOPATHOLOGY(Performed 06/22/2022) Performed for Neoplasm of uncertain behavior of skin * ERYTHROCYTE SEDIMENTATION RATE(Performed 04/15/2019) Performed for Rheumatoid arthritis involving multiple sites, unspecified rheumatoid factor presence * C-REACTIVE PROTEIN(Performed 04/15/2019) Performed for Rheumatoid arthritis involving multiple sites, unspecified rheumatoid factor presence * COMPREHENSIVE METABOLIC PANEL(Performed 04/15/2019) Performed for Rheumatoid arthritis involving multiple sites, unspecified rheumatoid factor presence * CBC W AUTO DIFFERENTIAL(Performed 04/15/2019) Performed for Rheumatoid arthritis involving multiple sites, unspecified rheumatoid factor presence * EYE EXAM(Performed 01/28/2019) * GLUCOSE - POINT OF CARE(Performed 01/02/2019) * GLUCOSE - POINT OF CARE(Performed 01/02/2019) * GLUCOSE - POINT OF CARE(Performed 01/02/2019) * GLUCOSE - POINT OF CARE(Performed 01/01/2019) * GLUCOSE - POINT OF CARE(Performed 01/01/2019) * GLUCOSE - POINT OF CARE(Performed 01/01/2019) * GLUCOSE - POINT OF CARE(Performed 01/01/2019) * GLUCOSE - POINT OF CARE(Performed 12/31/2018) * GLUCOSE - POINT OF CARE(Performed 12/31/2018) * GLUCOSE - POINT OF CARE(Performed 12/31/2018) * HEMOGLOBIN A1C(Performed 12/31/2018) * GLUCOSE - POINT OF CARE(Performed 12/31/2018) * GLUCOSE - POINT OF CARE(Performed 12/31/2018) * HEMOGLOBIN A1C(Performed 12/31/2018) Performed for Face lacerations, initial encounter * BASIC METABOLIC PANEL (CALCIUM TOTAL)(Performed 12/31/2018) * CBC W AUTO DIFFERENTIAL(Performed 12/31/2018) * GLUCOSE - POINT OF CARE(Performed 12/31/2018) * ENDOTRACHEAL TUBE NOTE(Performed 12/30/2018) * OPEN REDUCTION INTERNAL FIXATION (ORIF) ORBIT(Performed 12/30/2018) Performed for Closed fracture of right orbit, initial encounter ([facility]) * GLUCOSE - POINT OF CARE(Performed 12/30/2018) * GLUCOSE - POINT OF CARE(Performed 12/30/2018) * GLUCOSE - POINT OF CARE(Performed 12/30/2018) * GLUCOSE - POINT OF CARE(Performed 12/30/2018) * XR CLAVICLE RIGHT 2VW(Performed 12/30/2018) Performed for Fall, initial encounter * URINALYSIS W/MICROSCOPIC NO CULTURE(Performed 12/30/2018) * URINE DRUG SCREEN IMMUNOASSAY(Performed 12/30/2018) * CT LUMBAR SPINE WO CONTRAST(Performed 12/30/2018) Performed for Fall, initial encounter * CT THORACIC SPINE WO CONTRAST(Performed 12/30/2018) Performed for Fall, initial encounter * CT CERVICAL SPINE WO CONTRAST(Performed 12/30/2018) Performed for Fall, initial encounter * CT CHEST ABDOMEN PELVIS W CONT(Performed 12/30/2018) Performed for Fall, initial encounter * CT FACIAL BONES WO CONTRAST(Performed 12/30/2018) Performed for Fall, initial encounter * CT HEAD WO CONTRAST(Performed 12/30/2018) Performed for Fall, initial encounter * XR WRIST RIGHT 2VW(Performed 12/30/2018) Performed for Fall, initial encounter * XR PELVIS 1 OR 2VW(Performed 12/30/2018) Performed for Fall, initial encounter * XR CHEST 1VW PORTABLE(Performed 12/30/2018) Performed for Fall, initial encounter * TYPE + SCREEN PANEL(Performed 12/30/2018) * PT-INR SLH(Performed 12/30/2018) * LIPASE BLOOD(Performed 12/30/2018) * CBC W AUTO DIFFERENTIAL(Performed 12/30/2018) * BASIC METABOLIC PANEL (CALCIUM TOTAL)(Performed 12/30/2018) * AMYLASE BLOOD(Performed 12/30/2018) * ALCOHOL ETHYL BLOOD(Performed 12/30/2018) * ERYTHROCYTE SEDIMENTATION RATE(Performed 12/24/2018) Performed for Rheumatoid arthritis involving multiple sites, unspecified rheumatoid factor presence * C-REACTIVE PROTEIN(Performed 12/24/2018) Performed for Rheumatoid arthritis involving multiple sites, unspecified rheumatoid factor presence * COMPREHENSIVE METABOLIC PANEL(Performed 12/24/2018) Performed for Rheumatoid arthritis involving multiple sites, unspecified rheumatoid factor presence * CBC W AUTO DIFFERENTIAL(Performed 12/24/2018) Performed for Rheumatoid arthritis involving multiple sites, unspecified rheumatoid factor presence * ERYTHROCYTE SEDIMENTATION RATE(Performed 10/29/2018) Performed for Rheumatoid arthritis involving multiple sites, unspecified rheumatoid factor presence * C-REACTIVE PROTEIN(Performed 10/29/2018) Performed for Rheumatoid arthritis involving multiple sites, unspecified rheumatoid factor presence * COMPREHENSIVE METABOLIC PANEL(Performed 10/29/2018) Performed for Rheumatoid arthritis involving multiple sites, unspecified rheumatoid factor presence * CBC W AUTO DIFFERENTIAL(Performed 10/29/2018) Performed for Rheumatoid arthritis involving multiple sites, unspecified rheumatoid factor presence * ERYTHROCYTE SEDIMENTATION RATE(Performed 08/28/2018) Performed for Rheumatoid arthritis involving multiple sites, unspecified rheumatoid factor presence * C-REACTIVE PROTEIN(Performed 08/28/2018) Performed for Rheumatoid arthritis involving multiple sites, unspecified rheumatoid factor presence * COMPREHENSIVE METABOLIC PANEL(Performed 08/28/2018) Performed for Rheumatoid arthritis involving multiple sites, unspecified rheumatoid factor presence * CBC W AUTO DIFFERENTIAL(Performed 08/28/2018) Performed for Rheumatoid arthritis involving multiple sites, unspecified rheumatoid factor presence * ERYTHROCYTE SEDIMENTATION RATE(Performed 07/03/2018) Performed for Rheumatoid arthritis involving multiple sites, unspecified rheumatoid factor presence * C-REACTIVE PROTEIN(Performed 07/03/2018) Performed for Rheumatoid arthritis involving multiple sites, unspecified rheumatoid factor presence * COMPREHENSIVE METABOLIC PANEL(Performed 07/03/2018) Performed for Rheumatoid arthritis involving multiple sites, unspecified rheumatoid factor presence * CBC W AUTO DIFFERENTIAL(Performed 07/03/2018) Performed for Rheumatoid arthritis involving multiple sites, unspecified rheumatoid factor presence * ERYTHROCYTE SEDIMENTATION RATE(Performed 05/08/2018) Performed for Rheumatoid arthritis involving multiple sites, unspecified rheumatoid factor presence, Abnormal LFTs * C-REACTIVE PROTEIN(Performed 05/08/2018) Performed for Rheumatoid arthritis involving multiple sites, unspecified rheumatoid factor presence, Abnormal LFTs * COMPREHENSIVE METABOLIC PANEL(Performed 05/08/2018) Performed for Rheumatoid arthritis involving multiple sites, unspecified rheumatoid factor presence, Abnormal LFTs * CBC W AUTO DIFFERENTIAL(Performed 05/08/2018) Performed for Rheumatoid arthritis involving multiple sites, unspecified rheumatoid factor presence, Abnormal LFTs * US ABDOMEN LIMITED(Performed 04/03/2018) * HEPATITIS SCREEN ACUTE(Performed 03/14/2018) Performed for Abnormal LFTs * C-REACTIVE PROTEIN(Performed 03/14/2018) Performed for Rheumatoid arthritis involving multiple sites, unspecified rheumatoid factor presence * COMPREHENSIVE METABOLIC PANEL(Performed 03/14/2018) Performed for Rheumatoid arthritis involving multiple sites, unspecified rheumatoid factor presence * CBC W AUTO DIFFERENTIAL(Performed 03/14/2018) Performed for Rheumatoid arthritis involving multiple sites, unspecified rheumatoid factor presence * ERYTHROCYTE SEDIMENTATION RATE(Performed 01/06/2018) Performed for Rheumatoid arthritis involving multiple sites, unspecified rheumatoid factor presence * C-REACTIVE PROTEIN(Performed 01/06/2018) Performed for Rheumatoid arthritis involving multiple sites, unspecified rheumatoid factor presence * COMPREHENSIVE METABOLIC PANEL(Performed 01/06/2018) Performed for Rheumatoid arthritis involving multiple sites, unspecified rheumatoid factor presence * CBC W AUTO DIFFERENTIAL(Performed 01/06/2018) Performed for Rheumatoid arthritis involving multiple sites, unspecified rheumatoid factor presence * ERYTHROCYTE SEDIMENTATION RATE(Performed 12/09/2017) Performed for Rheumatoid arthritis involving multiple sites, unspecified rheumatoid factor presence * C-REACTIVE PROTEIN(Performed 12/09/2017) Performed for Rheumatoid arthritis involving multiple sites, unspecified rheumatoid factor presence * COMPREHENSIVE METABOLIC PANEL(Performed 12/09/2017) Performed for Rheumatoid arthritis involving multiple sites, unspecified rheumatoid factor presence * CBC W AUTO DIFFERENTIAL(Performed 12/09/2017) Performed for Rheumatoid arthritis involving multiple sites, unspecified rheumatoid factor presence * ERYTHROCYTE SEDIMENTATION RATE(Performed 10/28/2017) Performed for Rheumatoid arthritis involving multiple sites, unspecified rheumatoid factor presence * C-REACTIVE PROTEIN(Performed 10/28/2017) Performed for Rheumatoid arthritis involving multiple sites, unspecified rheumatoid factor presence * COMPREHENSIVE METABOLIC PANEL(Performed 10/28/2017) Performed for Rheumatoid arthritis involving multiple sites, unspecified rheumatoid factor presence * CBC W AUTO DIFFERENTIAL(Performed 10/28/2017) Performed for Rheumatoid arthritis involving multiple sites, unspecified rheumatoid factor presence * ERYTHROCYTE SEDIMENTATION RATE(Performed 09/03/2017) Performed for Rheumatoid arthritis involving multiple sites, unspecified rheumatoid factor presence * C-REACTIVE PROTEIN(Performed 09/03/2017) Performed for Rheumatoid arthritis involving multiple sites, unspecified rheumatoid factor presence * COMPREHENSIVE METABOLIC PANEL(Performed 09/03/2017) Performed for Rheumatoid arthritis involving multiple sites, unspecified rheumatoid factor presence * CBC W AUTO DIFFERENTIAL(Performed 09/03/2017) Performed for Rheumatoid arthritis involving multiple sites, unspecified rheumatoid factor presence * LYME DISEASE IGG/IGM PANEL WB/IMMUNOBLOT(Performed 05/22/2017) Performed for Rheumatoid arthritis involving multiple sites, unspecified rheumatoid factor presence * ALEJANDRO STAINING PATTERNS REFLEXED(Performed 05/22/2017) * SS-A/SS-B (SJOGREN'S) ANTIBODY PANEL(Performed 05/22/2017) Performed for Rheumatoid arthritis involving multiple sites, unspecified rheumatoid factor presence * C-REACTIVE PROTEIN(Performed 05/22/2017) Performed for Rheumatoid arthritis involving multiple sites, unspecified rheumatoid factor presence * CK BLOOD(Performed 05/22/2017) Performed for Rheumatoid arthritis involving multiple sites, unspecified rheumatoid factor presence * CHICA BLOOD SCREEN W/REFLEX TITER(Performed 05/22/2017) Performed for Rheumatoid arthritis involving multiple sites, unspecified rheumatoid factor presence * DERMATOPATHOLOGY(Performed 07/13/2014) * DERMATOPATHOLOGY(Performed 03/25/2013) Results * PROC FIBROSCAN (03/30/2024 12:56 PM CDT) Narrative Rylan Avila MD - 03/30/2024 12:56 PM CDT Rylan Avila MD 03/31/2024 4:49 PM Diagnosis: Fatty Liver RN verified patient is NPO for prior 3 hours. Procedure explained. Date of Exam: 03/30/2024 Liver Stiffness: (LSM, kPa) median: 7.0 IQR/Median% (ideally < 30%): 5% CAP (controlled attenuation parameter): 253 Technical Difficulty: None Ordering Provider: Peter Centeno CNP Phone Fax Fibroscan interpretation: I have personally reviewed the Fibroscan report and associated tracings. The calculated Liver Stiffness Measurement (LSM, kPa) indicates that: The probability of advanced liver fibrosis is: low to moderate. The loss of ultrasound signal, (controlled attenuation parameter, CAP [dB/m]), indicates that the probability of hepatic steatosis is: moderate. Rylan Garza MD The following criteria are used to indicate the probability of advanced (stage 3-4) fibrosis: < 7.0 kPa: low 7.0-8.9 kPa: low to moderate 9.0-14.9 kPa: moderate 15-20 kPa: high > 20 kPa: very high Liver stiffness > 20 kPa is also associated with a high probability of complications of portal hypertension including varices and ascites. Liver stiffness > 50 kPa is associated with a high risk of variceal bleeding. These interpretations are based on the following published data: Kathy PJ, Philly M, Magda M, et al. Accuracy of FibroScan controlled attenuation parameter and liver stiffness measurement in assessing steatosis and fibrosis in patients with nonalcoholic fatty liver disease. Gastroenterology 2019;156:6257-1121. Prema MS, Mercy R, Van Natta ML, et al. Vibration-controlled transient elastography to assess fibrosis and steatosis in patients with nonalcoholic fatty liver disease. Clin Gastroenterol Hepatol 2019;17:156-163. Note that scores have been developed that incorporate the Fibroscan liver stiffness measurement from large cohorts of patients with liver biopsies to further refine the ability of Fibroscan to identify patients with MASH and advanced fibrosis. These include the FAST (Fibroscan-AST) score (Reji, 2022) and the Agile3+ and Agile4 scores (Torito, 202). Reji TA, Van Natta ML, Flakita M, Zoran A, et al. Validation of the accuracy of the FAST score for detecting patients with at-risk nonalcoholic steatohepatitis (SANCHEZ) in a [place] cohort and comparison to other non-invasive algorithms. PLoS ONE (2021) 17: [id number]. Torito FERRER, Lv J, Jolie MORALES, et al. Enhanced diagnosis of advanced fibrosis and cirrhosis in individuals with NAFLD using FibroScan-based Agile scores. J Hepatol (2022) 78: 247-259. Fibroscan LSM can also be used with laboratory parameters without formulas to assess prognosis. According to the Baveno-VII criteria (Collado, 2021), Fibroscan LSM ?15 kPa plus a platelet count of ?[id number]/L rules out clinically significant portal hypertension (sensitivity and negative predictive value >90%) in patients with compensated advanced chronic liver disease. Collado R, Mariaa J, Adán-Darshan G, Sara T, Mel Gonzales on behalf of the Baveno VII Faculty. Baveno VII--Renewing consensus in portal hypertension. J Hepatol (2021) 76: 959-974 Assessing the likelihood of advanced fibrosis in patients with intermediate liver stiffness measurement (LSM) by Fibroscan (e.g., 8-15 kPa) can be improved by also calculating the FIB-4 score (Joanna et al. Hepatology Communications 2019;3:1121-5574) or NAFLD Fibrosis score (Portillo et al. Clinical Gastroenterology and Hepatology 2019;17:2641-5704 using routine clinical data. Note: 1. Fibroscan cannot reliably identify earlier stages of fibrosis (ie distinguish F0 from F1 and F2) and thus a histologic stage cannot be predicted from the Fibroscan reading. 2. Liver stiffness can be increased by factors other than fibrosis including passive congestion, infiltrative processes, active alcoholism, recent moderate alcohol consumption in the 2 weeks before the exam, biliary obstruction and marked inflammation. The interpretation of the Fibroscan result provided above may not have taken such clinical factors into account. Disease etiology also influences Fibroscan cutoff values for fibrosis stages and the following cutoffs have been proposed (Tato et al, Clin Gastro Hepatol 2015; 13:27-36): Cutoffs for Stage 3 and Stage 4 fibrosis respectively: Hepatitis B: >9 and >11.7 kPa Hepatitis C: >9.5 and >12.5 kPa HCV-HIV: >11 and >14 kPa Cholestatic liver diseases: >10 and >17.9 kPa MASLD/MASH: >10 and >14 kPa CAP estimates of steatosis: normal <200 dB/m mild 200 to 250 dB/m moderate 250-290 dB/m substantial > 290 dB/m (Note that Fibroscan is not a quantitative measure of liver fat.) These criteria are estimates and may change as additional supporting data becomes available. (This additional interpretive data was last updated 12/29/22.) [email or web address] Physician None PROCEDURE/MINOR SURG ICAL ORDERABLES * DERMATOPATHOLOGY (06/22/2022 12:00 AM CDT) Only the most recent of3 resultswithin the time period is included. Case Report Dermatopathology Report Case: [id number] Authorizing Provider: Mercedez Castillo, Collected: 06/22/2022 12:00 AM BENJAMIN Ordering Location: [facility] DermPath Lab Received: 06/25/2022 10:24 AM Pathologist: Geetha Tejeda MD Specimen: Skin, right lateral cheek 4:30 PM CDT DERMATOPATHOLOGY LABORATORY Final Diagnosis Specimen A. SKIN, right lateral cheek: ACTINIC KERATOSIS (L57.0) 2 4:30 PM CDT DERMATOPATHOLOGY LABORATORY Clinical History Basal Cell Carcinoma vs. Sebaceous Hyperplasia vs. Actinic Keratosis 4:30 PM CDT DERMATOPATHOLOGY LABORATORY Gross Description Specimen A: Received is one formalin filled container labeled with the patient's name and designated right lateral cheek. The specimen consists of a shave biopsy measuring 7m9t8gm. Jar 0. 4:30 PM CDT DERMATOPATHOLOGY LABORATORY Microscopic Description Specimen A. SKIN, right lateral cheek: There is focal parakeratosis. The lower half of the epidermis shows disorderly maturation of keratinocytes with nuclear pleomorphism. 4:30 PM CDT DERMATOPATHOLOGY LABORATORY Disclaimer An external and internal positive and negative controls are appropriate for the histochemical, immunohistochemical and immunofluorescence stain(s) in this case (if any), except where stated explicitly. The performance characteristics of the stain(s) cited in this report were developed and its performance characteristic determined by the Dermatopathology Laboratory at [facility], directed by Dr. Loyda Maria. These tests need not be, and therefore are not, approved by the [place] Food and Drug Administration. The tests are used for clinical purposes. Billing Codes Specimen Charges Stain Charges 33340 1 2 4:30 PM CDT DERMATOPATHOLOGY LABORATORY Embedded Images 2 4:30 PM CDT DERMATOPATHOLOGY LABORATORY Pathology/Cytolog y TISSUE SPECIMEN FROM SKIN / Unknown 06/22/2022 06/25/2022 10:24 AM CDT Mercedez Castillo PA-C LAB - PATHOL OGY/CYTOLOGY ORDERABLES DERMATOPATHOLOGY LABORATORY [facility] - Department of Dermatology [address], [address] [phone] * (ABNORMAL) C-REACTIVE PROTEIN (04/15/2019 3:41 PM CDT) Only the most recent of12 resultswithin the time period is included. C-Reactive Protein 0.78(H) <=0.50 mg/dL [facility] INSURANCE BILL Blood BLOOD SPECIMEN / Unknown 04/15/2019 3:41 PM CDT 04/15/2019 Narrative Resulting Agency Comment Lab Testing performed at: [place] [address] [id number] Danny Pink MD LAB - CHEMISTRY ORD ERABLES [facility] INSURANCE BILL [address] [place] [address] * (ABNORMAL) ERYTHROCYTE SEDIMENTATION RATE (04/15/2019 3:41 PM CDT) Only the most recent of10 resultswithin the time period is included. Erythrocyte Sedimentation Rate Westergren 28(H) 0 - 20 MM/HR [facility] INSURANCE BILL Blood BLOOD SPECIMEN / Unknown 04/15/2019 3:41 PM CDT 04/15/2019 Narrative Resulting Agency Comment Lab Testing performed at: [facility] [address] [id number] Danny Pink MD LAB - HEMATOLOGY OR DERABLES [facility] INSURANCE BILL [address] [place] [address] * (ABNORMAL) CBC WITH DIFFERENTIAL (04/15/2019 3:41 PM CDT) Only the most recent of13 resultswithin the time period is included. WBC 7.3 4.4 - 10.7 x10E9/L [facility] INSURANCE BILL RBC 4.12 3.80 - 5.40 x10E12/L [facility] INSURANCE BILL Hemoglobin 12.9 12.0 - 17.6 gm/dL [facility] INSURANCE BILL Hematocrit 40.2 35.2 - 51.7 % [facility] INSURANCE BILL MCV 97.6 80.7 - 98.3 fl [facility] INSURANCE BILL MCH 31.3 26.7 - 34.0 pg [facility] INSURANCE BILL MCHC 32.1 30.8 - 35.9 gm/dL [facility] INSURANCE BILL RDW 14.7 12.1 - 14.9 % [facility] INSURANCE BILL Platelet Count 190 153 - 416 x10E9/L [facility] INSURANCE BILL Comment:MPV FL BLOOD (SSM) 9 .3 fl 9.4-12.9 L Granulocytes % 68.1 44.0 - 73.0 % [facility] INSURANCE BILL Lymphocytes % 19.4(L) 20.0 - 43.0 % [facility] INSURANCE BILL Monocytes % 8.9 5.0 - 13.0 % [facility] INSURANCE BILL Eosinophils % 2.9 0.0 - 6.0 % [facility] INSURANCE BILL Basophils % 0.4 0.0 - 2.0 % [facility] INSURANCE BILL Granulocytes Absolute 4.99 2.01 - 7.14 x10E9/L [facility] INSURANCE BILL Lymphocytes Absolute 1.42 1.07 - 3.94 x10E9/L [facility] INSURANCE BILL Monocytes Absolute 0.65 0.26 - 1.07 x10E9/L [facility] INSURANCE BILL Eosinophils Absolute 0.21 0 - 0.47 x10E9/L [facility] INSURANCE BILL Basophils Absolute 0.03 0 - 0.08 x10E9/L [facility] INSURANCE BILL Immature Granulocytes 0.3 0 - 1 % [facility] INSURANCE BILL Immature Granulocytes Absolute 0.02 0.00 - 0.06 x10E9/L [facility] INSURANCE BILL nRBC 0 /100 WBC [facility] INSURANCE BILL Blood BLOOD SPECIMEN / Unknown 04/15/2019 3:41 PM CDT 04/15/2019 Narrative Resulting Agency Comment Lab Testing performed at: [facility] [address] [place] [id number] Danny Pink MD LAB - HEMATOLOGY OR DERABLES [facility] INSURANCE BILL [address] [place] [address] * (ABNORMAL) COMPREHENSIVE METABOLIC PANEL (04/15/2019 3:41 PM CDT) Only the most recent of11 resultswithin the time period is included. Glucose 110(H) 74 - 106 mg/dL [facility] [...] Resulting Agency Comment Lab Testing performed at: [facility] [address] [place] [phone] Danny Pink MD LAB - CHEMISTRY ORD ERABLES [facility] INSURANCE BILL [address] [place] [address] * EYE EXAM (01/28/2019 11:50 AM CDT) Anatomical Region Laterality Modality Other Narrative 01/28/2019 11:50 AM CDT Ordered by an unspecified provider. Scanned Document SCANNING ONLY * (ABNORMAL) GLUCOSE - POINT OF CARE (01/02/2019 5:44 PM CDT) Only the most recent of17 resultswithin the time period is included. Glucose WB/POC 229(H) 70 - 115 mg/dL 01/02/2019 5:51 PM CDT [facility] Specimen Type Arterial/C apillary 01/02/2019 5:51 PM CDT [facility] Blood BLOOD SPECIMEN / Unknown 01/02/2019 5:44 PM CDT 01/02/2019 5:51 PM CDT Narrative [facility] - 01/02/2019 5:51 PM CDT MONUMENT STONECUTTER: AYAAN RUBIN Giovani Nascimento MD LAB - POINT OF CARE ORDERABLES [address] [phone] * (ABNORMAL) HEMOGLOBIN A1C (12/31/2018 9:21 AM CDT) Only the most recent of2 resultswithin the time period is included. Hemoglobin A1c 13.2(H) 4.4 - 6.3 % 12/31/2018 2:05 PM CDT [facility] Estimated Average Glucose 332 mg/dL 12/31/2018 2:05 PM CDT [facility] Comment: HbA1c Interpretation: Treatment target values recommended by ADA and other clinical organizations should be used to evaluate metabolic control in patients. Treatment Target Values: Normal : < 5.7% Pre-diabetes: 5.7-6.4% Diabetes: Equal to or greater than 6.5% Reference: [place] Diabetes Association Standards of Care in Diabetes -2014 In patients 70 years and older consider HbA1c target range of 7.0-7.5% Reference: Diabetes Mellitus in Older People: Position Statement on behalf of the International Association of Gerontology and Geriatrics (IAGG), the Diabetes Working Constitution Party for Older People (EDWPOP), and the International Task Force of Experts in Diabetes. Benito Diop et al. J [employer]. 2012 Test results diagnostic of diabetes should be repeated for confirmation. The Sebia Capillary 2 assay for the measurement of HbA1c is a National Glycohemoglobin Standardization Program (NGSP)certified method. Blood BLOOD SPECIMEN / Unknown Lab Venipuncture / Unknown 12/31/2018 9:21 AM CDT 12/31/2018 9:37 AM CDT Evelyne Grier APRN-TERMINAL MANAGER LAB - CHEMISTRY ORDERABLES Performing Organization Address City/State/[facility] Co de Phone Number [address] [phone] * (ABNORMAL) BASIC METABOLIC PANEL (CALCIUM TOTAL) (12/31/2018 3:59 AM CDT) Only the most recent of2 resultswithin the time period is included. BUN 13 7 - 26 mg/dL 12/31/2018 4:21 AM [facility] Creatinine 1.0 0.6 - 1.2 mg/dL 12/31/2018 4:21 AM [facility] Sodium 138 136 - 145 mmol/L 12/31/2018 4:21 AM [facility] Potassium 3.3(L) 3.5 - 4.5 mmol/L 12/31/2018 4:21 AM [facility] Chloride 97(L) 98 - 107 mmol/L 12/31/2018 4:21 AM [facility] CO2 31(H) 22 - 29 mmol/L 12/31/2018 4:21 AM [facility] Glucose 245(H) 70 - 115 mg/dL 12/31/2018 4:21 AM CDT [facility] Calcium 9.1 8.4 - 10.2 mg/dL 12/31/2018 4:21 AM CDT [facility] Anion Gap 13 8 - 18 12/31/2018 4:21 AM CDT [facility] BUN/Creatinine Ratio 13 7 - 23 12/31/2018 4:21 AM CDT [facility] Osmolality Calculated 294 270 - 300 mOsm/kg 12/31/2018 4:21 AM CDT [facility] eGFR >60 >60 mL/min/1.7 3 m2 12/31/2018 4:21 AM CDT [facility] Blood BLOOD SPECIMEN / Unknown Lab Venipuncture / Unknown 12/31/2018 3:59 AM CDT 12/31/2018 4:02 AM CDT Matty Durham III, MD LAB - CHEMISTR Y ORDERABLES [address] [phone] * XR CLAVICLE RIGHT 2VW (12/30/2018 11:55 AM CDT) Anatomical Region Laterality Modality Upper Extremity, Chest Radiograp hic Imaging 12/30/2018 11:5 8 AM CDT Impressions 12/30/2018 12:23 PM CDT FINDINGS/IMPRESSION: The right clavicle appears intact, without evidence of fracture or dislocation. Mild degenerative changes are seen at the AC joint. Dictated by Carly Hwang MD (residential property tax appraiser). I, Dr. KAYLEE ROSALES M.D. have personally reviewed and interpreted this examination/study. This report was electronically signed by KAYLEE ROSALES M.D. on 12/30/2018 12:23 PM . Narrative 12/30/2018 12:23 PM CDT EXAMINATION: XR CLAVICLE RIGHT 2VW HISTORY: Trauma COMPARISON: Chest radiograph from earlier same day, 12/30/2018 at 9:22 AM Procedure Note Kaylee Rosales MD - 12/30/2018 EXAMINATION: XR CLAVICLE RIGHT 2VW HISTORY: Trauma COMPARISON: Chest radiograph from earlier same day, 12/30/2018 at 9:22 AM FINDINGS/IMPRESSION: The right clavicle appears intact, without evidence of fracture or dislocation. Mild degenerative changes are seen at the AC joint. Dictated by Carly Hwang MD (residential property tax appraiser). I, Dr. KAYLEE ROSALES M.D. have personally reviewed and interpreted this examination/study. This report was electronically signed by KAYLEE ROSALES M.D. on 12/30/2018 12:23 PM . Vanessa Ovalle MD DIAGNOSTIC IMAGING O RDERABLES * (ABNORMAL) URINALYSIS W/MICROSCOPIC NO CULTURE (12/30/2018 10:[address] [facility]) Color UA Straw Straw, Yellow, Colorless 12/30/2018 10:25 AM [facility] Clarity UA Clear Clear, t Cloudy 12/30/2018 10:25 AM [facility] Specific [place] UA 1.022 1.005 - 1.030 12/30/2018 10:25 AM [facility] pH UA 7.0 5.0 - 8.0 pH 12/30/2018 10:25 AM [facility] Protein UA Negative Negative mg/dL 12/30/2018 10:25 AM [facility] Glucose UA 3+(A) Negative mg/dL 12/30/2018 10:25 AM [facility] Ketone UA Trace(A) Negative mg/dL 12/30/2018 10:25 AM [facility] Bilirubin UA Negative Negative mg/dL 12/30/2018 10:25 AM [facility] Blood UA Negative Negative 12/30/2018 10:25 AM [facility] Nitrite UA Negative Negative 12/30/2018 10:25 AM [facility] Leukocyte Esterase Negative Negative 12/30/2018 10:25 AM [facility] Urobilinogen UA Negative Negative mg/dL 12/30/2018 10:25 AM [facility] RBC UA 0-2 None Seen, 0-2, 3-5 /HPF 12/30/2018 10:25 AM [facility] WBC UA 0-5 None Seen, 0-5 /HPF 12/30/2018 10:25 AM [facility] Squamous Epithelial Cells UA None Seen None Seen, 0-2 /HPF 12/30/2018 10:25 AM [facility] Urine URINE SPECIMEN OBTAINED BY CLEAN CATCH PROCEDURE / Unknown Collection / Unknown 12/30/2018 10:08 AM CDT 12/30/2018 10:15 AM CDT Ivonne Faustin MD LAB - URINALYSIS ORD ERABLES [facility] [address] [place] [address] * DRUG SCREEN TOX URINE PANEL (12/30/2018 10:08 AM T) [facility] Amphetamines Screen Urine Negative Negative: < 1000 ng/mL 12/30/2018 10:31 AM [facility] Barbiturates Screen Urine Negative Negative: < 200 ng/mL 12/30/2018 10:31 AM [facility] Benzodiazepine Screen Urine Negative Negative: < 200 ng/mL 12/30/2018 10:31 AM [facility] Opiates Urine Negative Negative: < 300 ng/mL 12/30/2018 10:31 AM [facility] Cocaine Metabolites Urine Negative Negative: < 300 ng/mL 12/30/2018 10:31 AM [facility] Phencyclidine Screen Urine Negative Negative: < 25 ng/ml 12/30/2018 10:31 AM [facility] Cannabinoids Screen Urine Negative Negative: <50 ng/mL 12/30/2018 10:31 AM [facility] Methadone Screen Urine Negative Negative: < 300 ng/mL 12/30/2018 10:31 AM [facility] Urine URINE / Unknown Collection / Unknown 12/30/2018 10:08 AM CDT 12/30/2018 10:15 AM CDT Narrative [facility] - 12/30/2018 10:[address] [facility] The Urine Toxicology Screening Panel does not screen for Propoxyphene, Meprobamate, Carisoprodol, Trazodone, ajrq-nse-vzkybaz medications and/or volatiles (Acetone, Isopropanol, Methanol or Ethylene Glycol). Ethanol, Salicylate, Acetaminophen, Tricyclic Antidepressants and several therapeutic drugs may be individually assayed in serum or plasma specimen. Toxicology testing by the [facility] is an aid to medical diagnosis and treatment of patients. No documented chain of custody was maintained. Results are intended to be used for clinical purposes only. Ivonne Faustin MD LAB - URINE CHEMISTR Y ORDERABLES [facility] [address] [place] [address], [facility] [phone] * CT CHEST ABDOMEN PELVIS W CONT (12/30/2018 10:03 AM CDT) Anatomical Region Laterality Modality Chest, Abdomen, Pelvis Computed Tomography 12/30/2018 10:1 4 AM CDT Impressions 12/31/2018 5:47 PM CDT IMPRESSION: 1. No acute visceral or vascular injury identified in the chest, abdomen, or pelvis. 2. Multiple right pulmonary nodules, with the largest measuring 8 mm. Recommend follow-up CT in 3 months or PET/CT. Preliminary findings were discussed with Dr. Pineda by Dr. Delatorre on 12/30/2018 at 10:41. Dictated by Tunde Delatorre MD (residential property tax appraiser). I, Dr. Randy LOZA M.D. have personally reviewed and interpreted this examination/study. This report was electronically signed by Randy LOZA M.D. on 12/31/2018 5:47 PM . Narrative 12/31/2018 5:47 PM CDT EXAMINATION: Computed tomography (CT) of the chest, abdomen, and pelvis with contrast HISTORY: 68-year-old status post 8 foot fall off ladder. TECHNIQUE: CT of the chest, abdomen, and pelvis was performed after the uneventful administration of 100 mL of Isovue 370 intravenous contrast according to standard protocol. COMPARISON: No prior study is available for comparison at the time of this dictation. FINDINGS: Chest: There is a left-sided three-vessel aortic arch. The main pulmonary artery is normal in caliber. The aorta is atherosclerotic but normal in caliber. There is atelectasis in the dependent portions of the lungs. Otherwise no focal consolidation is seen. No pleural effusion or focal pleural thickening is identified. There is no evidence of pneumothorax. There is a 8 mm pulmonary nodule in the right upper lobe (series 5, image 29). Another peripheral right upper lobe nodule is identified, measuring approximately 3 mm (series 5, image 31). A right lower lobe pulmonary nodule measuring 6 mm is identified (series 5, image 59). A right lower lobe pulmonary nodule measuring 8 mm is identified at the level of the right hemidiaphragm (series 5, image 76). The trachea is patent and midline. The heart size is normal. No pericardial effusion is present. No mediastinal, hilar, supraclavicular, or axillary lymphadenopathy is seen. The thyroid gland enhances homogenously. Abdomen/pelvis: The liver enhances homogenously. The gallbladder is normal without evidence of wall thickening, pericholecystic fluid, or gallstones. The intrahepatic and extrahepatic bile ducts are nondilated. The spleen enhances homogenously without focal lesion. The pancreas and adrenal glands are normal. Other than a 2.2 cm cyst on the left, the kidneys enhance symmetrically. There is no evidence of renal calculus or hydronephrosis. The esophagus and stomach appear normal. There is colonic diverticulosis without evidence of diverticulitis. Otherwise the small bowel and colon are normal in caliber without evidence of wall thickening or obstruction. The appendix appears normal without appendicolith or surrounding inflammatory changes. No free air or free fluid is identified within the abdomen. There is no abdominal lymphadenopathy. The urinary bladder is distended with fluid and appears normal. The prostate appears normal. No free fluid is seen within the pelvis. There is no pelvic lymphadenopathy. Bone windows demonstrate no suspicious lytic or blastic lesions. The visible osseous structures are intact. Procedure Note Opal Loza MD - 12/31/2018 EXAMINATION: Computed tomography (CT) of the chest, abdomen, and pelvis with contrast HISTORY: 68-year-old status post 8 foot fall off ladder. TECHNIQUE: CT of the chest, abdomen, and pelvis was performed after the uneventful administration of 100 mL of Isovue 370 intravenous contrast according to standard protocol. COMPARISON: No prior study is available for comparison at the time ofthis dictation. FINDINGS: Chest: There is a left-sided three-vessel aortic arch. The main pulmonaryartery is normal in caliber. The aorta is atherosclerotic but normal incaliber. There is atelectasis in the dependent portions of the lungs. Otherwiseno focal consolidation is seen. No pleural effusion or focal pleural thickening is identified. There is no evidence of pneumothorax. There karen 8 mm pulmonary nodule in the right upper lobe (series 5, image 29). Another peripheral right upper lobe nodule is identified, measuring approximately 3 mm (series 5, image 31). A right lower lobe pulmonary nodule measuring 6 mm is identified (series 5, image 59). A right lower lobe pulmonary nodule measuring 8 mm is identified at the level of the right hemidiaphragm (series 5, image 76). The trachea is patent and midline. The heart size is normal. No pericardial effusion is present. No mediastinal, hilar, supraclavicular, or axillary lymphadenopathy isseen. The thyroid gland enhances homogenously. Abdomen/pelvis: The liver enhances homogenously. The gallbladder is normal without evidence of wall thickening, pericholecystic fluid, or gallstones. The intrahepatic and extrahepatic bile ducts are nondilated. The spleen enhances homogenously without focal lesion. The pancreas and adrenal glands are normal. Other than a 2.2 cm cyst on the left, the kidneys enhance symmetrically. There is no evidence of renal calculus or hydronephrosis. The esophagus and stomach appear normal. There is colonic diverticulosis without evidence of diverticulitis. Otherwise the small bowel and colon are normal in caliber without evidence of wall thickening orobstruction. The appendix appears normal without appendicolith or surrounding inflammatory changes. No free air or free fluid is identified within the abdomen. There is no abdominal lymphadenopathy. The urinary bladder is distended with fluid and appears normal. The prostate appears normal. No free fluid is seen within the pelvis. Thereis no pelvic lymphadenopathy. Bone windows demonstrate no suspicious lytic or blastic lesions. The visible osseous structures are intact. IMPRESSION: 1. No acute visceral or vascular injury identified in the chest,abdomen, or pelvis. 2. Multiple right pulmonary nodules, with the largest measuring 8 mm. Recommend follow-up CT in 3 months or PET/CT. Preliminary findings were discussed with Dr. Pineda by Dr. Delatorre on12/30/2018 at 10:41. Dictated by Tunde Delatorre MD (residential property tax appraiser). I, Dr. Randy LOZA M.D. have personally reviewed and interpretedthis examination/study. This report was electronically signed by Randy LOZA M.D. on 12/31/2018 5:47 PM . Ivonne Faustin MD CT ORDERABLES * CT LUMBAR SPINE WO CONTRAST (12/30/2018 10:03 AM CDT) Anatomical Region Laterality Modality Spine Computed Tomogra phy 12/30/2018 10:1 4 AM CDT Impressions 12/30/2018 11:32 AM CDT IMPRESSION: 1. No acute intracranial CT abnormality. 2. blowout fracture involving right orbital floor and inferomedial wall, described above. Please clinically correlate to exclude entrapment of right inferior rectus muscle. Small amount of edema/hemorrhage in right orbit extraconal space at superior aspect. 3. No acute fracture or subluxation of the cervical, thoracic, and lumbar spine. 4. Abnormal mineralization of L5 vertebral body is of indeterminate etiology. Given presence of multiple pulmonary nodules (probably done on CT chest abdomen and pelvis performed 12/30/2018), bony metastatic disease cannot be excluded. Further characterization with lumbar spine MRI or FDG-PET/CT may be considered. I, Dr. WOOD LITTLEJOHN have personally reviewed and interpreted this examination/study. This report was electronically signed by WOOD LITTLEJOHN on 12/30/2018 11:32 AM . Narrative 12/30/2018 11:32 AM CDT EXAMINATION: 1. Computed tomography (CT) of the head without contrast 2. CT of the maxillofacial bones without contrast 3. CT of the cervical spine without contrast 4. CT of the thoracic spine without contrast 5. CT of the lumbar spine without contrast HISTORY: Head, face, neck, and back pain after injury. TECHNIQUE: CT of the head, cervical spine, and maxillofacial bones, orbits, and paranasal sinuses was performed without contrast according to standard protocol. Reformatted axial, sagittal, and coronal images of the thoracic and lumbar spine were obtained by the technologist from a concurrently performed body CT and sent to the workstation for review. Automated dose reduction techniques were employed. FINDINGS: Head: No intracranial hemorrhage or extra-axial fluid collection. Melton-white matter differentiation is preserved. Mild burden of hypoattenuation in the periventricular white matter and beyond, most likely chronic small vessel ischemic in etiology. No mass, mass effect, or midline shift. The ventricles are normal in size, shape, and configuration for patient age. The bony calvarium appears intact. Face: Subcutaneous edema at right side of forehead and right periorbital region. Induration consistent with edema/hematoma in the right orbit extraconal space at superior aspect. Blowout fracture involving right orbit floor and inferior medial wall, appears to involve greater than 50 percent of length. Orbital floor fracture is mildly displaced, with lateral aspect petting the adjacent inferior rectus muscle, please correlate regarding of patient has symptoms of entrapment. Fluid/blood layering in the dependent right maxillary antrum, and mild opacification/mucosal thickening of bilateral ethmoid air cells. Cervical spine: There is normal cervical alignment. Intervertebral disc space narrowing at C5-6 and C6-7. Multilevel endplate spurs, uncovertebral joint arthropathy, and mild facet arthropathy.. Vertebral body heights are maintained. No cervical spine fracture. Limited assessment of canal contents demonstrates no evidence for hematoma within the cervical canal. No soft tissue swelling in the prevertebral compartment. Thoracic spine: Thoracic spine minimal dextroscoliosis. Normal lateral alignment. Intervertebral disc space heights are maintained. Multilevel small endplate spurs. Vertebral body heights are maintained. No fracture. No evidence of hematoma in the imaged spinal canal. Paraspinal space appears unremarkable. No evidence of critical spinal stenosis. Lumbar spine: Mild leftward translation of L4 relative to L5. Normal lateral alignment. Vacuum disc phenomenon and mild intervertebral disc space narrowing at L4-5. Multilevel endplate spurs. L1 chronic appearing minimal wedge deformity.. No acute appearing lumbar spine fracture. L5 vertebral body has abnormal mineralization, with mixed lytic and sclerotic appearance, of indeterminate etiology; no associated soft tissue mass is apparent.. No evidence of hematoma in the imaged spinal canal. Paraspinal space appears unremarkable. Procedure Note Wood Littlejohn MD - 12/30/2018 EXAMINATION: 1. Computed tomography (CT) of the head without contrast 2. CT of the maxillofacial bones without contrast 3. CT of the cervical spine without contrast 4. CT of the thoracic spine without contrast 5. CT of the lumbar spine without contrast HISTORY: Head, face, neck, and back pain after injury. TECHNIQUE: CT of the head, cervical spine, and maxillofacial bones, orbits, and paranasal sinuses was performed without contrast accordingto standard protocol. Reformatted axial, sagittal, and coronal images ofthe thoracic and lumbar spine were obtained by the technologist from a concurrently performed body CT and sent to the workstation for review. Automated dose reduction techniques were employed. FINDINGS: Head: No intracranial hemorrhage or extra-axial fluid collection. Melton-white matter differentiation is preserved. Mild burden of hypoattenuation inthe periventricular white matter and beyond, most likely chronic smallvessel ischemic in etiology. No mass, mass effect, or midline shift. The ventricles are normal insize, shape, and configuration for patient age. The bony calvarium appears intact. Face: Subcutaneous edema at right side of forehead and right periorbitalregion. Induration consistent with edema/hematoma in the right orbit extraconal space at superior aspect. Blowout fracture involving right orbit floor and inferior medial wall, appears to involve greater than 50 percent of length. Orbital floor fracture is mildly displaced, with lateral aspect petting the adjacent inferior rectus muscle, please correlate regarding of patient hassymptoms of entrapment. Fluid/blood layering in the dependent right maxillary antrum, and mild opacification/mucosal thickening of bilateral ethmoid air cells. Cervical spine: There is normal cervical alignment. Intervertebral disc space narrowingat C5-6 and C6-7. Multilevel endplate spurs, uncovertebral jointarthropathy, and mild facet arthropathy.. Vertebral body heights are maintained. No cervical spine fracture. Limited assessment of canal contents demonstrates no evidence forhematoma within the cervical canal. No soft tissue swelling in the prevertebral compartment. Thoracic spine: Thoracic spine minimal dextroscoliosis. Normal lateral alignment. Intervertebral disc space heights are maintained. Multilevel small endplate spurs. Vertebral body heights are maintained. No fracture. No evidence of hematoma in the imaged spinal canal. Paraspinal space appears unremarkable. No evidence of critical spinal stenosis. Lumbar spine: Mild leftward translation of L4 relative to L5. Normal lateralalignment. Vacuum disc phenomenon and mild intervertebral disc space narrowing at L4-5. Multilevel endplate spurs. L1 chronic appearing minimal wedge deformity.. No acute appearing lumbar spine fracture. L5 vertebral body has abnormal mineralization, withmixed lytic and sclerotic appearance, of indeterminate etiology; no associated soft tissue mass is apparent.. No evidence of hematoma in the imaged spinal canal. Paraspinal space appears unremarkable. IMPRESSION: 1. No acute intracranial CT abnormality. 2. blowout fracture involving right orbital floor and inferomedial wall, described above. Please clinically correlate to exclude entrapment of right inferior rectus muscle. Small amount of edema/hemorrhage in right orbit extraconal space at superior aspect. 3. No acute fracture or subluxation of the cervical, thoracic, andlumbar spine. 4. Abnormal mineralization of L5 vertebral body is of indeterminate etiology. Given presence of multiple pulmonary nodules (probably done on CT chest abdomen and pelvis performed 12/30/2018), bony metastatic disease cannot be excluded. Further characterization with lumbar spine MRI or FDG-PET/CT may be considered. Dr. WOOD Turk have personally reviewed and interpreted this examination/study. This report was electronically signed by WOOD LITTLEJOHN on 12/30/2018 11:32 AM . Ivonne Faustin MD CT ORDERABLES * CT THORACIC SPINE WO CONTRAST (12/30/2018 10:03 AM CDT) Anatomical Region Laterality Modality Spine Computed Tomogra phy 12/30/2018 10:1 4 AM CDT Impressions 12/30/2018 11:32 AM CDT IMPRESSION: 1. No acute intracranial CT abnormality. 2. blowout fracture involving right orbital floor and inferomedial wall, described above. Please clinically correlate to exclude entrapment of right inferior rectus muscle. Small amount of edema/hemorrhage in right orbit extraconal space at superior aspect. 3. No acute fracture or subluxation of the cervical, thoracic, and lumbar spine. 4. Abnormal mineralization of L5 vertebral body is of indeterminate etiology. Given presence of multiple pulmonary nodules (probably done on CT chest abdomen and pelvis performed 12/30/2018), bony metastatic disease cannot be excluded. Further characterization with lumbar spine MRI or FDG-PET/CT may be considered. I, Dr. WOOD LITTLEJOHN have personally reviewed and interpreted this examination/study. This report was electronically signed by WOOD LITTLEJOHN on 12/30/2018 11:32 AM . Narrative 12/30/2018 11:32 AM CDT EXAMINATION: 1. Computed tomography (CT) of the head without contrast 2. CT of the maxillofacial bones without contrast 3. CT of the cervical spine without contrast 4. CT of the thoracic spine without contrast 5. CT of the lumbar spine without contrast HISTORY: Head, face, neck, and back pain after injury. TECHNIQUE: CT of the head, cervical spine, and maxillofacial bones, orbits, and paranasal sinuses was performed without contrast according to standard protocol. Reformatted axial, sagittal, and coronal images of the thoracic and lumbar spine were obtained by the technologist from a concurrently performed body CT and sent to the workstation for review. Automated dose reduction techniques were employed. FINDINGS: Head: No intracranial hemorrhage or extra-axial fluid collection. Melton-white matter differentiation is preserved. Mild burden of hypoattenuation in the periventricular white matter and beyond, most likely chronic small vessel ischemic in etiology. No mass, mass effect, or midline shift. The ventricles are normal in size, shape, and configuration for patient age. The bony calvarium appears intact. Face: Subcutaneous edema at right side of forehead and right periorbital region. Induration consistent with edema/hematoma in the right orbit extraconal space at superior aspect. Blowout fracture involving right orbit floor and inferior medial wall, appears to involve greater than 50 percent of length. Orbital floor fracture is mildly displaced, with lateral aspect petting the adjacent inferior rectus muscle, please correlate regarding of patient has symptoms of entrapment. Fluid/blood layering in the dependent right maxillary antrum, and mild opacification/mucosal thickening of bilateral ethmoid air cells. Cervical spine: There is normal cervical alignment. Intervertebral disc space narrowing at C5-6 and C6-7. Multilevel endplate spurs, uncovertebral joint arthropathy, and mild facet arthropathy.. Vertebral body heights are maintained. No cervical spine fracture. Limited assessment of canal contents demonstrates no evidence for hematoma within the cervical canal. No soft tissue swelling in the prevertebral compartment. Thoracic spine: Thoracic spine minimal dextroscoliosis. Normal lateral alignment. Intervertebral disc space heights are maintained. Multilevel small endplate spurs. Vertebral body heights are maintained. No fracture. No evidence of hematoma in the imaged spinal canal. Paraspinal space appears unremarkable. No evidence of critical spinal stenosis. Lumbar spine: Mild leftward translation of L4 relative to L5. Normal lateral alignment. Vacuum disc phenomenon and mild intervertebral disc space narrowing at L4-5. Multilevel endplate spurs. L1 chronic appearing minimal wedge deformity.. No acute appearing lumbar spine fracture. L5 vertebral body has abnormal mineralization, with mixed lytic and sclerotic appearance, of indeterminate etiology; no associated soft tissue mass is apparent.. No evidence of hematoma in the imaged spinal canal. Paraspinal space appears unremarkable. Procedure Note Wood Littlejohn MD - 12/30/2018 EXAMINATION: 1. Computed tomography (CT) of the head without contrast 2. CT of the maxillofacial bones without contrast 3. CT of the cervical spine without contrast 4. CT of the thoracic spine without contrast 5. CT of the lumbar spine without contrast HISTORY: Head, face, neck, and back pain after injury. TECHNIQUE: CT of the head, cervical spine, and maxillofacial bones, orbits, and paranasal sinuses was performed without contrast accordingto standard protocol. Reformatted axial, sagittal, and coronal images ofthe thoracic and lumbar spine were obtained by the technologist from a concurrently performed body CT and sent to the workstation for review. Automated dose reduction techniques were employed. FINDINGS: Head: No intracranial hemorrhage or extra-axial fluid collection. Melton-white matter differentiation is preserved. Mild burden of hypoattenuation inthe periventricular white matter and beyond, most likely chronic smallvessel ischemic in etiology. No mass, mass effect, or midline shift. The ventricles are normal insize, shape, and configuration for patient age. The bony calvarium appears intact. Face: Subcutaneous edema at right side of forehead and right periorbitalregion. Induration consistent with edema/hematoma in the right orbit extraconal space at superior aspect. Blowout fracture involving right orbit floor and inferior medial wall, appears to involve greater than 50 percent of length. Orbital floor fracture is mildly displaced, with lateral aspect petting the adjacent inferior rectus muscle, please correlate regarding of patient hassymptoms of entrapment. Fluid/blood layering in the dependent right maxillary antrum, and mild opacification/mucosal thickening of bilateral ethmoid air cells. Cervical spine: There is normal cervical alignment. Intervertebral disc space narrowingat C5-6 and C6-7. Multilevel endplate spurs, uncovertebral jointarthropathy, and mild facet arthropathy.. Vertebral body heights are maintained. No cervical spine fracture. Limited assessment of canal contents demonstrates no evidence forhematoma within the cervical canal. No soft tissue swelling in the prevertebral compartment. Thoracic spine: Thoracic spine minimal dextroscoliosis. Normal lateral alignment. Intervertebral disc space heights are maintained. Multilevel small endplate spurs. Vertebral body heights are maintained. No fracture. No evidence of hematoma in the imaged spinal canal. Paraspinal space appears unremarkable. No evidence of critical spinal stenosis. Lumbar spine: Mild leftward translation of L4 relative to L5. Normal lateralalignment. Vacuum disc phenomenon and mild intervertebral disc space narrowing at L4-5. Multilevel endplate spurs. L1 chronic appearing minimal wedge deformity.. No acute appearing lumbar spine fracture. L5 vertebral body has abnormal mineralization, withmixed lytic and sclerotic appearance, of indeterminate etiology; no associated soft tissue mass is apparent.. No evidence of hematoma in the imaged spinal canal. Paraspinal space appears unremarkable. IMPRESSION: 1. No acute intracranial CT abnormality. 2. blowout fracture involving right orbital floor and inferomedial wall, described above. Please clinically correlate to exclude entrapment of right inferior rectus muscle. Small amount of edema/hemorrhage in right orbit extraconal space at superior aspect. 3. No acute fracture or subluxation of the cervical, thoracic, andlumbar spine. 4. Abnormal mineralization of L5 vertebral body is of indeterminate etiology. Given presence of multiple pulmonary nodules (probably done on CT chest abdomen and pelvis performed 12/30/2018), bony metastatic disease cannot be excluded. Further characterization with lumbar spine MRI or FDG-PET/CT may be considered. Dr. WOOD Turk have personally reviewed and interpreted this examination/study. This report was electronically signed by WOOD LITTLEJOHN on 12/30/2018 11:32 AM . Ivonne Faustin MD CT ORDERABLES * CT CERVICAL SPINE WO CONTRAST (12/30/2018 10:03 AM CDT) Anatomical Region Laterality Modality Spine Computed Tomogra phy 12/30/2018 10:1 4 AM CDT Impressions 12/30/2018 11:32 AM CDT IMPRESSION: 1. No acute intracranial CT abnormality. 2. blowout fracture involving right orbital floor and inferomedial wall, described above. Please clinically correlate to exclude entrapment of right inferior rectus muscle. Small amount of edema/hemorrhage in right orbit extraconal space at superior aspect. 3. No acute fracture or subluxation of the cervical, thoracic, and lumbar spine. 4. Abnormal mineralization of L5 vertebral body is of indeterminate etiology. Given presence of multiple pulmonary nodules (probably done on CT chest abdomen and pelvis performed 12/30/2018), bony metastatic disease cannot be excluded. Further characterization with lumbar spine MRI or FDG-PET/CT may be considered. Dr. WOOD Turk have personally reviewed and interpreted this examination/study. This report was electronically signed by WOOD LITTLEJOHN on 12/30/2018 11:32 AM . Narrative 12/30/2018 11:32 AM CDT EXAMINATION: 1. Computed tomography (CT) of the head without contrast 2. CT of the maxillofacial bones without contrast 3. CT of the cervical spine without contrast 4. CT of the thoracic spine without contrast 5. CT of the lumbar spine without contrast HISTORY: Head, face, neck, and back pain after injury. TECHNIQUE: CT of the head, cervical spine, and maxillofacial bones, orbits, and paranasal sinuses was performed without contrast according to standard protocol. Reformatted axial, sagittal, and coronal images of the thoracic and lumbar spine were obtained by the technologist from a concurrently performed body CT and sent to the workstation for review. Automated dose reduction techniques were employed. FINDINGS: Head: No intracranial hemorrhage or extra-axial fluid collection. Melton-white matter differentiation is preserved. Mild burden of hypoattenuation in the periventricular white matter and beyond, most likely chronic small vessel ischemic in etiology. No mass, mass effect, or midline shift. The ventricles are normal in size, shape, and configuration for patient age. The bony calvarium appears intact. Face: Subcutaneous edema at right side of forehead and right periorbital region. Induration consistent with edema/hematoma in the right orbit extraconal space at superior aspect. Blowout fracture involving right orbit floor and inferior medial wall, appears to involve greater than 50 percent of length. Orbital floor fracture is mildly displaced, with lateral aspect petting the adjacent inferior rectus muscle, please correlate regarding of patient has symptoms of entrapment. Fluid/blood layering in the dependent right maxillary antrum, and mild opacification/mucosal thickening of bilateral ethmoid air cells. Cervical spine: There is normal cervical alignment. Intervertebral disc space narrowing at C5-6 and C6-7. Multilevel endplate spurs, uncovertebral joint arthropathy, and mild facet arthropathy.. Vertebral body heights are maintained. No cervical spine fracture. Limited assessment of canal contents demonstrates no evidence for hematoma within the cervical canal. No soft tissue swelling in the prevertebral compartment. Thoracic spine: Thoracic spine minimal dextroscoliosis. Normal lateral alignment. Intervertebral disc space heights are maintained. Multilevel small endplate spurs. Vertebral body heights are maintained. No fracture. No evidence of hematoma in the imaged spinal canal. Paraspinal space appears unremarkable. No evidence of critical spinal stenosis. Lumbar spine: Mild leftward translation of L4 relative to L5. Normal lateral alignment. Vacuum disc phenomenon and mild intervertebral disc space narrowing at L4-5. Multilevel endplate spurs. L1 chronic appearing minimal wedge deformity.. No acute appearing lumbar spine fracture. L5 vertebral body has abnormal mineralization, with mixed lytic and sclerotic appearance, of indeterminate etiology; no associated soft tissue mass is apparent.. No evidence of hematoma in the imaged spinal canal. Paraspinal space appears unremarkable. Procedure Note Wood Littlejohn MD - 12/30/2018 EXAMINATION: 1. Computed tomography (CT) of the head without contrast 2. CT of the maxillofacial bones without contrast 3. CT of the cervical spine without contrast 4. CT of the thoracic spine without contrast 5. CT of the lumbar spine without contrast HISTORY: Head, face, neck, and back pain after injury. TECHNIQUE: CT of the head, cervical spine, and maxillofacial bones, orbits, and paranasal sinuses was performed without contrast accordingto standard protocol. Reformatted axial, sagittal, and coronal images ofthe thoracic and lumbar spine were obtained by the technologist from a concurrently performed body CT and sent to the workstation for review. Automated dose reduction techniques were employed. FINDINGS: Head: No intracranial hemorrhage or extra-axial fluid collection. Melton-white matter differentiation is preserved. Mild burden of hypoattenuation inthe periventricular white matter and beyond, most likely chronic smallvessel ischemic in etiology. No mass, mass effect, or midline shift. The ventricles are normal insize, shape, and configuration for patient age. The bony calvarium appears intact. Face: Subcutaneous edema at right side of forehead and right periorbitalregion. Induration consistent with edema/hematoma in the right orbit extraconal space at superior aspect. Blowout fracture involving right orbit floor and inferior medial wall, appears to involve greater than 50 percent of length. Orbital floor fracture is mildly displaced, with lateral aspect petting the adjacent inferior rectus muscle, please correlate regarding of patient hassymptoms of entrapment. Fluid/blood layering in the dependent right maxillary antrum, and mild opacification/mucosal thickening of bilateral ethmoid air cells. Cervical spine: There is normal cervical alignment. Intervertebral disc space narrowingat C5-6 and C6-7. Multilevel endplate spurs, uncovertebral jointarthropathy, and mild facet arthropathy.. Vertebral body heights are maintained. No cervical spine fracture. Limited assessment of canal contents demonstrates no evidence forhematoma within the cervical canal. No soft tissue swelling in the prevertebral compartment. Thoracic spine: Thoracic spine minimal dextroscoliosis. Normal lateral alignment. Intervertebral disc space heights are maintained. Multilevel small endplate spurs. Vertebral body heights are maintained. No fracture. No evidence of hematoma in the imaged spinal canal. Paraspinal space appears unremarkable. No evidence of critical spinal stenosis. Lumbar spine: Mild leftward translation of L4 relative to L5. Normal lateralalignment. Vacuum disc phenomenon and mild intervertebral disc space narrowing at L4-5. Multilevel endplate spurs. L1 chronic appearing minimal wedge deformity.. No acute appearing lumbar spine fracture. L5 vertebral body has abnormal mineralization, withmixed lytic and sclerotic appearance, of indeterminate etiology; no associated soft tissue mass is apparent.. No evidence of hematoma in the imaged spinal canal. Paraspinal space appears unremarkable. IMPRESSION: 1. No acute intracranial CT abnormality. 2. blowout fracture involving right orbital floor and inferomedial wall, described above. Please clinically correlate to exclude entrapment of right inferior rectus muscle. Small amount of edema/hemorrhage in right orbit extraconal space at superior aspect. 3. No acute fracture or subluxation of the cervical, thoracic, andlumbar spine. 4. Abnormal mineralization of L5 vertebral body is of indeterminate etiology. Given presence of multiple pulmonary nodules (probably done on CT chest abdomen and pelvis performed 12/30/2018), bony metastatic disease cannot be excluded. Further characterization with lumbar spine MRI or FDG-PET/CT may be considered. I, Dr. WOOD LITTLEJOHN have personally reviewed and interpreted this examination/study. This report was electronically signed by WOOD LITTLEJOHN on 12/30/2018 11:32 AM . Ivonne Faustin MD CT ORDERABLES * CT FACIAL BONES WO CONTRAST (12/30/2018 10:03 AM CDT) Anatomical Region Laterality Modality Head Computed Tomogra phy 12/30/2018 10:1 4 AM CDT Impressions 12/30/2018 11:32 AM CDT IMPRESSION: 1. No acute intracranial CT abnormality. 2. blowout fracture involving right orbital floor and inferomedial wall, described above. Please clinically correlate to exclude entrapment of right inferior rectus muscle. Small amount of edema/hemorrhage in right orbit extraconal space at superior aspect. 3. No acute fracture or subluxation of the cervical, thoracic, and lumbar spine. 4. Abnormal mineralization of L5 vertebral body is of indeterminate etiology. Given presence of multiple pulmonary nodules (probably done on CT chest abdomen and pelvis performed 12/30/2018), bony metastatic disease cannot be excluded. Further characterization with lumbar spine MRI or FDG-PET/CT may be considered. I, Dr. WOOD LITTLEJOHN have personally reviewed and interpreted this examination/study. This report was electronically signed by WOOD LITTLEJOHN on 12/30/2018 11:32 AM . Narrative 12/30/2018 11:32 AM CDT EXAMINATION: 1. Computed tomography (CT) of the head without contrast 2. CT of the maxillofacial bones without contrast 3. CT of the cervical spine without contrast 4. CT of the thoracic spine without contrast 5. CT of the lumbar spine without contrast HISTORY: Head, face, neck, and back pain after injury. TECHNIQUE: CT of the head, cervical spine, and maxillofacial bones, orbits, and paranasal sinuses was performed without contrast according to standard protocol. Reformatted axial, sagittal, and coronal images of the thoracic and lumbar spine were obtained by the technologist from a concurrently performed body CT and sent to the workstation for review. Automated dose reduction techniques were employed. FINDINGS: Head: No intracranial hemorrhage or extra-axial fluid collection. Melton-white matter differentiation is preserved. Mild burden of hypoattenuation in the periventricular white matter and beyond, most likely chronic small vessel ischemic in etiology. No mass, mass effect, or midline shift. The ventricles are normal in size, shape, and configuration for patient age. The bony calvarium appears intact. Face: Subcutaneous edema at right side of forehead and right periorbital region. Induration consistent with edema/hematoma in the right orbit extraconal space at superior aspect. Blowout fracture involving right orbit floor and inferior medial wall, appears to involve greater than 50 percent of length. Orbital floor fracture is mildly displaced, with lateral aspect petting the adjacent inferior rectus muscle, please correlate regarding of patient has symptoms of entrapment. Fluid/blood layering in the dependent right maxillary antrum, and mild opacification/mucosal thickening of bilateral ethmoid air cells. Cervical spine: There is normal cervical alignment. Intervertebral disc space narrowing at C5-6 and C6-7. Multilevel endplate spurs, uncovertebral joint arthropathy, and mild facet arthropathy.. Vertebral body heights are maintained. No cervical spine fracture. Limited assessment of canal contents demonstrates no evidence for hematoma within the cervical canal. No soft tissue swelling in the prevertebral compartment. Thoracic spine: Thoracic spine minimal dextroscoliosis. Normal lateral alignment. Intervertebral disc space heights are maintained. Multilevel small endplate spurs. Vertebral body heights are maintained. No fracture. No evidence of hematoma in the imaged spinal canal. Paraspinal space appears unremarkable. No evidence of critical spinal stenosis. Lumbar spine: Mild leftward translation of L4 relative to L5. Normal lateral alignment. Vacuum disc phenomenon and mild intervertebral disc space narrowing at L4-5. Multilevel endplate spurs. L1 chronic appearing minimal wedge deformity.. No acute appearing lumbar spine fracture. L5 vertebral body has abnormal mineralization, with mixed lytic and sclerotic appearance, of indeterminate etiology; no associated soft tissue mass is apparent.. No evidence of hematoma in the imaged spinal canal. Paraspinal space appears unremarkable. Procedure Note Wood Littlejohn MD - 12/30/2018 EXAMINATION: 1. Computed tomography (CT) of the head without contrast 2. CT of the maxillofacial bones without contrast 3. CT of the cervical spine without contrast 4. CT of the thoracic spine without contrast 5. CT of the lumbar spine without contrast HISTORY: Head, face, neck, and back pain after injury. TECHNIQUE: CT of the head, cervical spine, and maxillofacial bones, orbits, and paranasal sinuses was performed without contrast accordingto standard protocol. Reformatted axial, sagittal, and coronal images ofthe thoracic and lumbar spine were obtained by the technologist from a concurrently performed body CT and sent to the workstation for review. Automated dose reduction techniques were employed. FINDINGS: Head: No intracranial hemorrhage or extra-axial fluid collection. Melton-white matter differentiation is preserved. Mild burden of hypoattenuation inthe periventricular white matter and beyond, most likely chronic smallvessel ischemic in etiology. No mass, mass effect, or midline shift. The ventricles are normal insize, shape, and configuration for patient age. The bony calvarium appears intact. Face: Subcutaneous edema at right side of forehead and right periorbitalregion. Induration consistent with edema/hematoma in the right orbit extraconal space at superior aspect. Blowout fracture involving right orbit floor and inferior medial wall, appears to involve greater than 50 percent of length. Orbital floor fracture is mildly displaced, with lateral aspect petting the adjacent inferior rectus muscle, please correlate regarding of patient hassymptoms of entrapment. Fluid/blood layering in the dependent right maxillary antrum, and mild opacification/mucosal thickening of bilateral ethmoid air cells. Cervical spine: There is normal cervical alignment. Intervertebral disc space narrowingat C5-6 and C6-7. Multilevel endplate spurs, uncovertebral jointarthropathy, and mild facet arthropathy.. Vertebral body heights are maintained. No cervical spine fracture. Limited assessment of canal contents demonstrates no evidence forhematoma within the cervical canal. No soft tissue swelling in the prevertebral compartment. Thoracic spine: Thoracic spine minimal dextroscoliosis. Normal lateral alignment. Intervertebral disc space heights are maintained. Multilevel small endplate spurs. Vertebral body heights are maintained. No fracture. No evidence of hematoma in the imaged spinal canal. Paraspinal space appears unremarkable. No evidence of critical spinal stenosis. Lumbar spine: Mild leftward translation of L4 relative to L5. Normal lateralalignment. Vacuum disc phenomenon and mild intervertebral disc space narrowing at L4-5. Multilevel endplate spurs. L1 chronic appearing minimal wedge deformity.. No acute appearing lumbar spine fracture. L5 vertebral body has abnormal mineralization, withmixed lytic and sclerotic appearance, of indeterminate etiology; no associated soft tissue mass is apparent.. No evidence of hematoma in the imaged spinal canal. Paraspinal space appears unremarkable. IMPRESSION: 1. No acute intracranial CT abnormality. 2. blowout fracture involving right orbital floor and inferomedial wall, described above. Please clinically correlate to exclude entrapment of right inferior rectus muscle. Small amount of edema/hemorrhage in right orbit extraconal space at superior aspect. 3. No acute fracture or subluxation of the cervical, thoracic, andlumbar spine. 4. Abnormal mineralization of L5 vertebral body is of indeterminate etiology. Given presence of multiple pulmonary nodules (probably done on CT chest abdomen and pelvis performed 12/30/2018), bony metastatic disease cannot be excluded. Further characterization with lumbar spine MRI or FDG-PET/CT may be considered. I, Dr. WOOD LITTLEJOHN have personally reviewed and interpreted this examination/study. This report was electronically signed by WOOD LITTLEJOHN on 12/30/2018 11:32 AM . Ivonne Faustin MD CT ORDERABLES * CT HEAD WO CONTRAST (12/30/2018 10:03 AM CDT) Anatomical Region Laterality Modality Head Computed Tomogra phy 12/30/2018 10:1 4 AM CDT Impressions 12/30/2018 11:32 AM CDT IMPRESSION: 1. No acute intracranial CT abnormality. 2. blowout fracture involving right orbital floor and inferomedial wall, described above. Please clinically correlate to exclude entrapment of right inferior rectus muscle. Small amount of edema/hemorrhage in right orbit extraconal space at superior aspect. 3. No acute fracture or subluxation of the cervical, thoracic, and lumbar spine. 4. Abnormal mineralization of L5 vertebral body is of indeterminate etiology. Given presence of multiple pulmonary nodules (probably done on CT chest abdomen and pelvis performed 12/30/2018), bony metastatic disease cannot be excluded. Further characterization with lumbar spine MRI or FDG-PET/CT may be considered. I, Dr. WOOD LITTLEJOHN have personally reviewed and interpreted this examination/study. This report was electronically signed by WOOD LITTLEJOHN on 12/30/2018 11:32 AM . Narrative 12/30/2018 11:32 AM CDT EXAMINATION: 1. Computed tomography (CT) of the head without contrast 2. CT of the maxillofacial bones without contrast 3. CT of the cervical spine without contrast 4. CT of the thoracic spine without contrast 5. CT of the lumbar spine without contrast HISTORY: Head, face, neck, and back pain after injury. TECHNIQUE: CT of the head, cervical spine, and maxillofacial bones, orbits, and paranasal sinuses was performed without contrast according to standard protocol. Reformatted axial, sagittal, and coronal images of the thoracic and lumbar spine were obtained by the technologist from a concurrently performed body CT and sent to the workstation for review. Automated dose reduction techniques were employed. FINDINGS: Head: No intracranial hemorrhage or extra-axial fluid collection. Melton-white matter differentiation is preserved. Mild burden of hypoattenuation in the periventricular white matter and beyond, most likely chronic small vessel ischemic in etiology. No mass, mass effect, or midline shift. The ventricles are normal in size, shape, and configuration for patient age. The bony calvarium appears intact. Face: Subcutaneous edema at right side of forehead and right periorbital region. Induration consistent with edema/hematoma in the right orbit extraconal space at superior aspect. Blowout fracture involving right orbit floor and inferior medial wall, appears to involve greater than 50 percent of length. Orbital floor fracture is mildly displaced, with lateral aspect petting the adjacent inferior rectus muscle, please correlate regarding of patient has symptoms of entrapment. Fluid/blood layering in the dependent right maxillary antrum, and mild opacification/mucosal thickening of bilateral ethmoid air cells. Cervical spine: There is normal cervical alignment. Intervertebral disc space narrowing at C5-6 and C6-7. Multilevel endplate spurs, uncovertebral joint arthropathy, and mild facet arthropathy.. Vertebral body heights are maintained. No cervical spine fracture. Limited assessment of canal contents demonstrates no evidence for hematoma within the cervical canal. No soft tissue swelling in the prevertebral compartment. Thoracic spine: Thoracic spine minimal dextroscoliosis. Normal lateral alignment. Intervertebral disc space heights are maintained. Multilevel small endplate spurs. Vertebral body heights are maintained. No fracture. No evidence of hematoma in the imaged spinal canal. Paraspinal space appears unremarkable. No evidence of critical spinal stenosis. Lumbar spine: Mild leftward translation of L4 relative to L5. Normal lateral alignment. Vacuum disc phenomenon and mild intervertebral disc space narrowing at L4-5. Multilevel endplate spurs. L1 chronic appearing minimal wedge deformity.. No acute appearing lumbar spine fracture. L5 vertebral body has abnormal mineralization, with mixed lytic and sclerotic appearance, of indeterminate etiology; no associated soft tissue mass is apparent.. No evidence of hematoma in the imaged spinal canal. Paraspinal space appears unremarkable. Procedure Note Wood Littlejohn MD - 12/30/2018 EXAMINATION: 1. Computed tomography (CT) of the head without contrast 2. CT of the maxillofacial bones without contrast 3. CT of the cervical spine without contrast 4. CT of the thoracic spine without contrast 5. CT of the lumbar spine without contrast HISTORY: Head, face, neck, and back pain after injury. TECHNIQUE: CT of the head, cervical spine, and maxillofacial bones, orbits, and paranasal sinuses was performed without contrast accordingto standard protocol. Reformatted axial, sagittal, and coronal images ofthe thoracic and lumbar spine were obtained by the technologist from a concurrently performed body CT and sent to the workstation for review. Automated dose reduction techniques were employed. FINDINGS: Head: No intracranial hemorrhage or extra-axial fluid collection. Melton-white matter differentiation is preserved. Mild burden of hypoattenuation inthe periventricular white matter and beyond, most likely chronic smallvessel ischemic in etiology. No mass, mass effect, or midline shift. The ventricles are normal insize, shape, and configuration for patient age. The bony calvarium appears intact. Face: Subcutaneous edema at right side of forehead and right periorbitalregion. Induration consistent with edema/hematoma in the right orbit extraconal space at superior aspect. Blowout fracture involving right orbit floor and inferior medial wall, appears to involve greater than 50 percent of length. Orbital floor fracture is mildly displaced, with lateral aspect petting the adjacent inferior rectus muscle, please correlate regarding of patient hassymptoms of entrapment. Fluid/blood layering in the dependent right maxillary antrum, and mild opacification/mucosal thickening of bilateral ethmoid air cells. Cervical spine: There is normal cervical alignment. Intervertebral disc space narrowingat C5-6 and C6-7. Multilevel endplate spurs, uncovertebral jointarthropathy, and mild facet arthropathy.. Vertebral body heights are maintained. No cervical spine fracture. Limited assessment of canal contents demonstrates no evidence forhematoma within the cervical canal. No soft tissue swelling in the prevertebral compartment. Thoracic spine: Thoracic spine minimal dextroscoliosis. Normal lateral alignment. Intervertebral disc space heights are maintained. Multilevel small endplate spurs. Vertebral body heights are maintained. No fracture. No evidence of hematoma in the imaged spinal canal. Paraspinal space appears unremarkable. No evidence of critical spinal stenosis. Lumbar spine: Mild leftward translation of L4 relative to L5. Normal lateralalignment. Vacuum disc phenomenon and mild intervertebral disc space narrowing at L4-5. Multilevel endplate spurs. L1 chronic appearing minimal wedge deformity.. No acute appearing lumbar spine fracture. L5 vertebral body has abnormal mineralization, withmixed lytic and sclerotic appearance, of indeterminate etiology; no associated soft tissue mass is apparent.. No evidence of hematoma in the imaged spinal canal. Paraspinal space appears unremarkable. IMPRESSION: 1. No acute intracranial CT abnormality. 2. blowout fracture involving right orbital floor and inferomedial wall, described above. Please clinically correlate to exclude entrapment of right inferior rectus muscle. Small amount of edema/hemorrhage in right orbit extraconal space at superior aspect. 3. No acute fracture or subluxation of the cervical, thoracic, andlumbar spine. 4. Abnormal mineralization of L5 vertebral body is of indeterminate etiology. Given presence of multiple pulmonary nodules (probably done on CT chest abdomen and pelvis performed 12/30/2018), bony metastatic disease cannot be excluded. Further characterization with lumbar spine MRI or FDG-PET/CT may be considered. IDr. WOOD have personally reviewed and interpreted this examination/study. This report was electronically signed by WOOD LITTLEJOHN on 12/30/2018 11:32 AM . Ivonne Faustin MD CT ORDERABLES * XR WRIST RIGHT 2VW (12/30/2018 9:48 AM CDT) Anatomical Region Laterality Modality Wrist / Hand Radiographic Bárbara ging 12/30/2018 9:44 AM CDT Impressions 12/30/2018 9:56 AM CDT IMPRESSION: No acute fracture or dislocation identified. Osteoarthritis at the first carpometacarpal joint. Dictated by Linda Moscoso MD (residential property tax appraiser). Dr. KAYLEE Turk M.D. have personally reviewed and interpreted this examination/study. This report was electronically signed by KAYLEE ROSALES M.D. on 12/30/2018 9:56 AM . Narrative 12/30/2018 9:56 AM CDT EXAMINATION: XR WRIST RIGHT 2VW HISTORY: trauma COMPARISON: No prior study is available for comparison at the time of this dictation. FINDINGS: The osseous structures are intact and well aligned without acute fracture or dislocation. There is moderate arthritis with spurring at the first carpometacarpal joint.. Bone density and texture are normal. No soft tissue swelling is present. Procedure Note Kaylee Rosales MD - 12/30/2018 EXAMINATION: XR WRIST RIGHT 2VW HISTORY: trauma COMPARISON: No prior study is available for comparison at the time ofthis dictation. FINDINGS: The osseous structures are intact and well aligned without acutefracture or dislocation. There is moderate arthritis with spurring at the first carpometacarpal joint.. Bone density and texture are normal. No soft tissue swelling is present. IMPRESSION: No acute fracture or dislocation identified. Osteoarthritis at the first carpometacarpal joint. Dictated by Linda Moscoso MD (residential property tax appraiser). Dr. KAYLEE Turk M.D. have personally reviewed and interpreted this examination/study. This report was electronically signed by KAYLEE ROSALES M.D. on 12/30/2018 9:56 AM . Ivonne Faustin MD DIAGNOSTIC IMAGING O RDERABLES * XR PELVIS 1 OR 2VW (12/30/2018 9:47 AM CDT) Anatomical Region Laterality Modality Pelvis Radiographic Bárbara ging 12/30/2018 9:43 AM CDT Impressions 12/30/2018 9:54 AM CDT IMPRESSION: No acute fracture or dislocation identified. Dictated by Linda Moscoso MD (residential property tax appraiser). Dr. KAYLEE Turk M.D. have personally reviewed and interpreted this examination/study. This report was electronically signed by KAYLEE ROSALES M.D. on 12/30/2018 9:54 AM . Narrative 12/30/2018 9:54 AM CDT EXAMINATION: XR PELVIS 1 OR 2VW HISTORY: trauma COMPARISON: No prior study is available for comparison at the time of this dictation. FINDINGS: The osseous structures are intact and well aligned without acute fracture or dislocation. The joint spaces are preserved. Bone density and texture are normal. No soft tissue swelling is present. Procedure Note Kaylee Rosales MD - 12/30/2018 EXAMINATION: XR PELVIS 1 OR 2VW HISTORY: trauma COMPARISON: No prior study is available for comparison at the time ofthis dictation. FINDINGS: The osseous structures are intact and well aligned without acutefracture or dislocation. The joint spaces are preserved. Bone density and texture are normal. No soft tissue swelling is present. IMPRESSION: No acute fracture or dislocation identified. Dictated by Linda Moscoso MD (residential property tax appraiser). Dr. KAYLEE Turk M.D. have personally reviewed and interpreted this examination/study. This report was electronically signed by KAYLEE ROSALES M.D. on 12/30/2018 9:54 AM . Ivonne Faustin MD DIAGNOSTIC IMAGING O RDERABLES * XR CHEST 1VW PORTABLE (12/30/2018 9:47 AM CDT) Anatomical Region Laterality Modality Chest Radiographic Bárbara ging 12/30/2018 9:43 AM CDT Impressions 12/30/2018 9:53 AM CDT FINDINGS/IMPRESSION: No prior study is available for comparison at the time of this dictation. The lungs are clear. There is no focal consolidation, pleural effusion, or pneumothorax. The cardiomediastinal silhouette is normal. The visible bony thorax is intact. Dictated by Linda Moscoso MD (residential property tax appraiser). Dr. KAYLEE Turk M.D. have personally reviewed and interpreted this examination/study. This report was electronically signed by KAYLEE ROSALES M.D. on 12/30/2018 9:53 AM . Narrative 12/30/2018 9:53 AM CDT EXAMINATION: XR CHEST 1VW PORTABLE HISTORY: trauma Procedure Note Kaylee Rosales MD - 12/30/2018 EXAMINATION: XR CHEST 1VW PORTABLE HISTORY: trauma FINDINGS/IMPRESSION: No prior study is available for comparison at the time of this dictation. The lungs are clear. There is no focal consolidation, pleural effusion,or pneumothorax. The cardiomediastinal silhouette is normal. The visiblebony thorax is intact. Dictated by Linda Moscoso MD (residential property tax appraiser). Dr. KAYLEE Turk M.D. have personally reviewed and interpreted this examination/study. This report was electronically signed by KAYLEE ROSALES M.D. on 12/30/2018 9:53 AM . Ivonne Faustin MD DIAGNOSTIC IMAGING O RDERABLES * PT-INR [facility] (12/30/2018 9:32 AM CDT) PT 12.4 12.1 - 14.8 Seconds 12/30/2018 9:59 AM CDT [facility] INR 1.0 See Comment 12/30/2018 9:59 AM CDT [facility] Comment: The suggested therapeutic range for standard coumadin (warfarin) therapy is an INR of 2.0-3.0. For high-risk patients (Mechanical Mitral Valve Prosthesis, etc.), the suggested prophylactic therapeutic range is an INR of 2.5-3.5. Blood BLOOD SPECIMEN / Unknown Venipuncture / Unknown 12/30/2018 9:32 AM CDT 12/30/2018 9:40 AM CDT Ivonne Faustin MD LAB - COAGULATION OR DERABLES Performing Organization Address [facility]/ZIP Co de Phone Number [address] [phone] * TYPE + SCREEN PANEL (12/30/2018 9:32 AM CDT) Antibody Screen NEG 9 10:37 AM CDT [facility] BLOOD BANK LAB ABO Rh O POS 12/30/2018 10:37 AM CDT [facility] BLOOD [facility] LAB Blood Bank BLOOD SPECIMEN / Unknown Venipuncture / Unknown 12/30/2018 9:32 AM CDT 12/30/2018 9:52 AM CDT Ivonne Faustin MD LAB - BLOOD BANK ORD ERABLES Performing Organization Address [facility] Co de Phone Number [facility] B[facility]OD [facility] LAB [address] [place] [address] * LIPASE BLOOD (12/30/2018 9:32 AM CDT) Lipase 50 8 - 78 Units/L 12/30/2018 10:03 AM CDT [facility] Blood BLOOD SPECIMEN / Unknown Venipuncture / Unknown 12/30/2018 9:32 AM CDT 12/30/2018 9:40 AM CDT Ivonne Faustin MD LAB - CHEMISTRY ORDE RABLES Performing Organization Address [facility] Co de Phone Number [address] [phone] * AMYLASE BLOOD (12/30/2018 9:32 AM CDT) Amylase 66 25 - 125 Units/L 12/30/2018 10:04 AM CDT [facility] Blood BLOOD SPECIMEN / Unknown Venipuncture / Unknown 12/30/2018 9:32 AM CDT 12/30/2018 9:40 AM CDT Ivonne Faustin MD LAB - CHEMISTRY KING MENDIETA Performing Organization Address [facility] Co de Phone Number [address] [phone] * ALCOHOL ETHYL BLOOD (12/30/2018 9:32 AM CDT) Interpretation Ethanol None Detected None Detected mg/dL 12/30/2018 10:04 AM CDT [facility] Comment: Ethanol levels less than 10 mg/dL are resulted as None detected . Blood BLOOD SPECIMEN / Unknown Venipuncture / Unknown 12/30/2018 9:32 AM CDT 12/30/2018 9:40 AM CDT Ivonne Faustin MD LAB - CHEMISTRY KING MENDIETA Performing Organization Address [facility] Co de Phone Number [address] [phone] * US ABDOMEN LIMITED (04/03/2018) Anatomical Region Laterality Modality Abdomen Ultrasound Danny Pink MD US ORDERABLES * HEPATITIS SCREEN ACUTE (03/14/2018 10:40 AM [...] with a HCV Nucleic Acid Amplification test (341143). Blood BLOOD SPECIMEN / Unknown 03/14/2018 10:40 AM CDT 03/14/2018 Narrative Resulting Agency Comment [facility] [address] [facility] [phone] Danny Pink MD LAB - CHEMISTRY ORD ERABLES [facility] INSURANCE BILL [address] [place] [address] * LYME DISEASE IGG/IGM PANEL WB/IMMUNOBLOT (05/22/2017 2:31 PM CDT) P93 Antibody IgG Absent [facility] INSURANCE BILL P66 Antibody IgG Absent [facility] INSURANCE BILL P58 Antibody IgG Absent [facility] INSURANCE BILL P45 Antibody IgG Absent [facility] INSURANCE BILL IgG P41 Antibody Absent [facility] INSURANCE BILL P39 Antibody IgG Absent [facility] INSURANCE BILL P30 Antibody IgG Absent [facility] INSURANCE BILL P23 Antibody IgG Absent [facility] INSURANCE BILL P23 Antibody IgG Absent [facility] INSURANCE BILL P18 Antibody IgG Absent [facility] INSURANCE BILL Lyme Disease Antibody IgG Wetern Blot Negative [facility] INSURANCE BILL Comment: Positive: 5 of the following Borrelia-specific bands: 18,23,28,30,39,41,45,58, 66, and 93. Negative: No bands or banding patterns which do not meet positive criteria. IgM P41 Antibody Absent [facility] INSURANCE BILL P39 Antibody IgM Absent [facility] INSURANCE BILL P23 Antibody IgM Absent [facility] INSURANCE BILL Interpretation Lyme Disease WB Negative [facility] INSURANCE BILL Comment: Note: An equivocal or positive EIA result followed by a negative Western Blot result is considered NEGATIVE. An equivocal or positive EIA result followed by a positive Western Blot is considered POSITIVE by the CDC. . Positive: 2 of the following bands: 23,39 or 41 Negative: No bands or banding patterns which do not meet positive criteria. Criteria for positivity are those recommended by CDC/ASTPHLD. p23=Osp C, b34=cpivqwwsu . Note: Sera from individuals with the following may cross react in the Lyme Western Blot assays: other spirochetal diseases (periodontal disease, leptospirosis, relapsing fever, yaws, and pinta); connective autoimmune (Rheumatoid Arthritis and Systemic Lupus Erythematosus and also individuals with Antinuclear Antibody); other infections ([place] Spotted Fever; Harinder-Olson Virus, and Cytomegalovirus). . Blood BLOOD SPECIMEN / Unknown 05/22/2017 2:31 PM CDT 05/22/2017 Narrative Resulting Agency Comment [facility] [address] [phone] Danny Pink MD LAB - SEROLOGY ORDE RABLES Performing Organization Address [facility] Co de Phone Number [facility] INSURANCE BILL [address] [place] [address] * ALEJANDRO STAINING PATTERNS REFLEXED (05/22/2017 2:30 PM CDT) Speckled Pattern 1:40 [facility] INSURANCE BILL Comment:REFERENCE RANGE: Neg ative, <1:40, 1:40, 1:80 05/22/2017 2:30 PM CDT 05/22/2017 Narrative Resulting Agency Comment [address] [phone] Danny Pink MD LAB - PATHOLOGY/CYT OLOGY ORDERABLES Performing Organization Address [facility] Co de Phone Number [facility] INSURANCE BILL [address] [place] [address] * (ABNORMAL) CHICA BLOOD SCREEN W/REFLEX TITER (05/22/2017 2:30 PM CDT) CHICA Positive(A) Negative [facility] INSURANCE BILL Blood BLOOD SPECIMEN / Unknown 05/22/2017 2:30 PM CDT 05/22/2017 Narrative Resulting Agency Comment [address] [phone] Danny Pink MD LAB - CHEMISTRY ORD ERABLES Performing Organization Address [facility] Co de Phone Number [facility] INSURANCE BILL [address] [place] [address] * (ABNORMAL) SS-A/SS-B (SJOGRENS) ANTIBODY PANEL (05/22/2017 2:30 PM CDT) Sjogren's Antibodies (SSA) <0.2 0.0 - 0.9 AI [facility] INSURANCE BILL Sjogren's Antibodies (SSB) 3.7(H) 0.0 - 0.9 AI [facility] INSURANCE BILL Blood BLOOD SPECIMEN / Unknown 05/22/2017 2:30 PM CDT 05/22/2017 Narrative Resulting Agency Comment [facility] [address] [facility] [phone] Danny Pink MD LAB - CHEMISTRY ORD ERABLES [facility] INSURANCE BILL [address] [place] [address] * CK BLOOD (05/22/2017 2:30 PM CDT) CK 81 35 - 232 U/L [facility] INSURANCE BILL Blood BLOOD SPECIMEN / Unknown 05/22/2017 2:30 PM CDT 05/22/2017 Narrative Resulting Agency Comment [facility] [place] [address] [place] [phone] Danny Pink MD LAB - CHEMISTRY ORD ERABLES [facility] INSURANCE BILL [address] [place] [address] Care Teams Product Manager Medical Device Relationship Specialty Start Date End Date Rodolfo Topete MD [address] [place], [place] [phone] PCP - General Internal Medicine 12/30/18 Danny Pink MD Rheumatology 04/10/18
--- OUTSIDE RECORDS SUMMARY | 2024-10-18 16:19 | XMS_ITS | Clinical Summary ---
Author Organization [facility] Address [address] [place] [address] Care Team Providers Care Security Alarm Technician Name Role Phone Rodolfo Topete MD Primary Care Provider [phone] Allergies Active Allergy Reactions Criticality Noted Date Comments Garlic Other (see comment),GI Upset 019 Acid reflex Onion Other (see comment),GI Upset 019 ACID REFLEX Penicillins Rash,Anaphylaxis,Oth er (see comment) High 04/04/2017 [place] Nausea and Vomiting, Other (see comment) Low 12/31/2018 Acid reflex Medications gabapentin (NEURONTIN) 600 MG tablet Take 1 tablet (600 mg total) by mouth 3 (three) times daily. Active folic acid (FOLVITE) 1 MG tablet Take 5 tablets (5 mg total) by mouth daily. 06/01/2024 Active metFORMIN ER (GLUCOPHAGE-XR) 500 MG 24 hr tablet Take 2 tablets (1,000 mg total) by mouth 2 (two) times daily. 03/24/2024 Active pantoprazole EC (PROTONIX) 40 MG tablet Take 1 tablet (40 mg total) by mouth daily. Active LANTUS SOLOSTAR 100 UNIT/ML injection (PEN) Inject 30 Units into the skin nightly at bedtime. Active ONETOUCH VERIO test strip 1 strip by Other route as needed. 05/23/2024 Active Lancets (ONETOUCH DELICA PLUS [id number]) [facility] USE TO CHECK BLOOD SUGAR EVERY DAY OR DIRECTED 03/25/2024 Active atorvastatin (LIPITOR) 20 MG tablet Take 1 tablet (20 mg total) by mouth daily. Active losartan (COZAAR) 50 MG tablet Take 1 tablet (50 mg total) by mouth daily. Active EASY TOUCH PEN NEEDLES 32G X 4 MM Misc USE TO INJECT LANTUS 03/25/2024 Active Multiple Vitamin (MULTI-DAY VITAMINS OR) Take 1 tablet by mouth daily. Active baclofen (LIORESAL) 10 MG tablet Take 1 tablet (10 mg total) by mouth 3 (three) times daily. Active traMADol (ULTRAM) 50 MG tablet Take 1 tablet (50 mg total) by mouth every 4 (four) hours as needed for Pain. Active Active Problems Problem Noted Date Diagnosed Date Gastroesophageal reflux disease 06/26/2024 History of colonic polyps 06/26/2024 Insomnia 06/26/2024 Class 1 obesity 06/04/2024 Mucoid cyst of joint 06/03/2024 Disorder of prostate 10/17/2023 Nonalcoholic steatohepatitis 03/01/2023 Steatosis of liver 03/01/2023 Essential hypertension 03/30/2022 Diabetic neuropathy ([facility]) 06/24/2020 Obstructive sleep apnea syndrome 04/15/2019 Uncontrolled type 2 diabetes mellitus with hyperglycemia ([facility]) 12/31/2018 Pure hypercholesterolemia 06/20/2018 Rheumatoid arthritis involvi ng multiple sites ([facility]) 05/22/2017 Family History Medical History Relation Comments Esophageal cancer Father Heart Disease Father Lung Cancer Mother Relation Status Comments Father Mother Social History Tobacco Use Types Packs/Day Years Used Date Smoking Tobacco: Never Smokeless Tobacco: Never Tobacco Cessation:Counseling Given: No Alcohol Use Standard Drinks/Week Comments Never 0 (1 standard drink = 0.6 oz pur e alcohol) PHQ-2 Answer Date Recorded Patient Health Questionnaire-2 Score 0 06/02/2024 Sex and Gender Information Value Date Recorded Sex Assigned at Not on file Legal Sex Male 7:40 AM CDT Gender Identity Not on file Sexual Orientation Not on file Last Filed Vital Signs Vital Sign Reading Time Taken Comments Blood Pressure 153/88 07/03/2024 8:06 AM INVESTMENT CONSULTANT Pulse 69 07/03/2024 8:06 AM INVESTMENT CONSULTANT Temperature 36.1 C (96.9 F) 07/03/2024 7:50 AM INVESTMENT CONSULTANT Respiratory Rate 18 06/19/2024 3:00 PM CDT Oxygen Saturation 97% 07/03/2024 7:50 AM INVESTMENT CONSULTANT Inhaled Oxygen Concentration - - Weight 99.2 kg (218 lb 9.6 oz) 07/03/2024 7:50 A M INVESTMENT CONSULTANT Height 180.3 cm (5' 11 ) 07/03/2024 7:50 AM INVESTMENT CONSULTANT Body Mass Index 30.49 07/03/2024 7:50 AM INVESTMENT CONSULTANT Plan of Treatment Health Maintenance Due Date Last Done Comments Colorectal Cancer Screening Colonoscopy (10 Years) 1950 Kidney Health Evaluation 1950 Lipid Panel 1950 Pneumococcal Vaccine: 65+ Years (1 of 2 - PCV) 1956 DTaP, Tdap and Td Vaccines (1 - Tdap) 1969 Zoster Vaccines (1 of 2) 2000 RSV Immunization or 60+ Years (1 - Risk 60-74 years 1-dose series) 2010 Annual Medicare Wellness Visit 2015 Hemoglobin A1C 07/03/2019 12/31/2018, 12/31/2018 Diabetes: Retinopathy Eye Exam 01/28/2021 01/28/2019 COVID-19 Vaccine ( season) 2024 09/20/2021, 09/20/2021, 09/24/2020, Additional history exists Influenza Adult (#1) 2024 PHQ-2 (Physician [place]) 08/26/2024 06/02/2024 PHQ-2 (Physician [place]) 06/02/2025 06/02/2024 Hepatitis C Completed 03/14/2018 Meningococcal B Vaccine Aged Out No l onger eligible based on patient's age to complete this topic Meningococcal Vaccine Aged Out No kylah parvez eligible based on patient's age to complete this topic RSV Immunizations Under 20 Months Aged Out No longer eligible based on patient's age to complete this topic Insurance [address] [id number] GROUP MEDICARE Care Teams Security Alarm Technician Relationship Specialty Start Date End Date Rodolfo Topete MD [address] [address] PCP - General INTERNAL MEDICINE 07/03/24
--- OUTSIDE RECORDS SUMMARY | 2024-10-18 16:20 | XMS_ITS | Clinical Summary ---
Author Organization [facility] Address [address], [facility] [address] [place] [address] Phone Care Team Providers Care Top Waddy Name Role Phone Indira Max MD Primary Care Provider [phone] Horacio Perez MD Unavailable [phone] Allergies Active Allergy Reactions Criticality Noted Date Comments Penicillins Anaphylaxis,Other (see Comments) High Medications metFORMIN (GLUCOPHAGE) 1000 MG Tablet metformin 1,000 mg tablet TAKE 1 TABLET BY MOUTH TWICE DAILY Active gabapentin (NEURONTIN) 600 MG Tablet gabapentin 600 mg tablet TAKE 1 TABLET BY MOUTH THREE TIMES DAILY Active folic acid (FOLVITE) 1 MG Tablet folic acid 1 mg tablet 5 TABLETS BY MOUTH EVERY DAY 9 Active pantoprazole (PROTONIX) 40 MG Tablet Delayed Response pantoprazole 40 mg tablet,delayed release TAKE 1 TABLET BY MOUTH EVERY DAY Active glimepiride (AMARYL) 2 MG Tablet glimepiride 2 mg tablet take one tablet by mouth once a day Active atorvastatin (LIPITOR) 20 MG Tablet atorvastatin 20 mg tablet TAKE 1 TABLET BY MOUTH EVERY DAY Active losartan (COZAAR) 50 MG Tablet losartan 50 mg tablet TAKE 1 TABLET BY MOUTH EVERY DAY Active Benzonatate 200 MG Capsule benzonatate 200 mg capsule Take 1 capsule 3 times a day by oral route. Active Cyanocobalamin (VITAMIN B-12) 1000 MCG Tablet cyanocobalamin (vit B-12) 1,000 mcg tablet Take 1 tablet every day by oral route. Active Active Problems Problem Noted Date Diagnosed Date Thrombocytopenia 07/06/2022 Family History Medical History Relation Name Comments Cancer Father Lung Cancer Mother Relation Name Status Comments Father Mother Social History Tobacco Use Types Packs/Day Years Used Date Smoking Tobacco: Never Smokeless Tobacco: Never Alcohol Use Standard Drinks/Week Comments Not Currently 0 (1 standard drink = 0.6 oz pur e alcohol) Sex and Gender Information Value Date Recorded Sex Assigned at Not on file Legal Sex Male 2:20 PM CDT Gender Identity Not on file Sexual Orientation Not on file Last Filed Vital Signs Vital Sign Reading Time Taken Comments Blood Pressure 124/70 07/06/2022 9:55 AM DUTY MANAGER Pulse 75 07/06/2022 9:55 AM DUTY MANAGER Temperature 36.7 C (98 F) 07/06/2022 9:55 AM DUTY MANAGER Respiratory Rate 18 07/06/2022 9:55 AM DUTY MANAGER Oxygen Saturation 97% 07/06/2022 9:55 AM DUTY MANAGER Inhaled Oxygen Concentration - - Weight 98 kg (216 lb) 07/06/2022 9:55 AM DUTY MANAGER Height 182.9 cm (6') 07/06/2022 9:55 AM DUTY MANAGER Body Mass Index 29.29 07/06/2022 9:55 AM DUTY MANAGER Plan of Treatment Health Maintenance Due Date Last Done Comments Hepatitis C Virus (HCV) Screening 1950 TdaP Immunization 1950 Colonoscopy 1995 Colorectal Cancer Screening 1995 Cologuard 2000 Immunochemical Fecal Occult Blood 2000 Pneumococcal Immunization (5 0+ years) (1 of 1 - PCV) 2000 Zoster Immunization (1 of 2) 2000 Influenza Immunization (#1) 2024 SARS-COV-2 Immunization ( season) 2024 09/20/2021, 09/24/2020, 09/03/2020 Respiratory Syncytial Virus (RSV) Immunization (Adult) (1 - 1-dose 75+ series) 2025 Hepatitis B Immunization Aged Out No longer eligible based on patient's age to complete this topic Meningococcal Immunization (ACWY) Aged Out No longer eligible b ased on patient's age to complete this topic Rotavirus Immunization Aged Out No lo nger eligible based on patient's age to complete this topic Insurance MEDICARE [facility] Care Teams Top Waddy Relationship Specialty Start Date End Date Indira Max MD [address] [place] [address] PCP - General Neurology 06/08/22 Horacio Perez MD [address] [place] [phone] Consulting Physician Oncology 06/08/22
--- OUTSIDE RECORDS SUMMARY | 2024-10-18 16:20 | XMS_ITS | Encounter Summary ---
Author Organization [facility] Address [address] [place] [address] Care Team Providers Care Sleeve Bottom Feller Name Role Phone Danny Pink MD Unavailable Rodolfo Topete MD Primary Care Provider [phone] Encounter Details Date Type Department Care Team (Late st Contact Info) Description 12/30/2018 Ophth Exam [facility] [address] [place] [phone] Salma Cast MD [address] [place] [address] Social History Tobacco Use Types Packs/Day Years Used Date Smoking Tobacco: Never Smokeless Tobacco: Never Sex and Gender Information Value Date Recorded Sex Assigned at Male 03/30/2024 6:43 PM CDT Gender Identity Male 03/30/2024 6:43 PM CDT Sexual Orientation Straight 03/30/2024 6: 43 PM CDT documented as of this encounter Plan of Treatment Not on file documented as of this encounter Visit Diagnoses Not on filedocumented in this encounter Care Teams Sleeve Bottom Feller Relationship Specialty Start Date End Date Rodolfo Topete MD [address] [place] [address] [address] [place] [address] PCP - General Internal Medicine 12/30/18 Danny Pink MD Rheumatology 04/10/18 documented as of this encounter
--- OUTSIDE RECORDS SUMMARY | 2024-10-18 16:20 | XMS_ITS | Encounter Summary ---
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 Historical Provider Final Res ult documented in this encounter Visit Diagnoses Not on filedocumented in this encounter Care Teams Videographer Relationship Specialty Start Date End Date Rodolfo Topete MD [address] [address] PCP - General Internal Medicine 06/15/19 documented as of this encounter
--- OUTSIDE RECORDS SUMMARY | 2024-10-18 16:20 | XMS_ITS | Clinical Summary ---
Author Organization [facility] Address [address] [place] [address] Care Team Providers Care Prison Teacher Name Role Phone Rodolfo Topete MD Primary Care Provider [phone] Allergies Active Allergy Reactions Criticality Noted Date Comments Black Pepper Nausea and Vomiting Low 02/14/2024 Garlic Other (See Comments) 12/31/2018 Acid reflex Onion Other (See Comments) 12/31/2018 ACID REFLEX Penicillins Anaphylaxis,Other (See Comments) High Medications gabapentin (NEURONTIN) 600 mg tablet gabapentin 600 mg tablet TAKE 1 TABLET BY MOUTH THREE TIMES DAILY Active glimepiride (AMARYL) 2 mg tablet glimepiride 2 mg tablet take one tablet by mouth once a day Active atorvastatin (LIPITOR) 20 mg tablet Take 20 mg by mouth daily. 3 Active losartan (COZAAR) 50 mg tablet Take 50 mg by mouth daily. 3 Active pantoprazole (PROTONIX) 40 mg Tablet, Delayed Release (E.C.) pantoprazole 40 mg tablet,delayed release TAKE 1 TABLET BY MOUTH EVERY DAY Active folic acid (FOLVITE) 1 mg tablet 3 Active cyanocobalamin (VITAMIN B-12) 500 mcg tablet Take 500 mcg by mouth daily. Active multivitamin (DAILY-HELENA) tablet Take 1 Tablet by mouth daily. Active metFORMIN (GLUCOPHAGE) 1,000 mg tablet metformin 1,000 mg tablet TAKE 1 TABLET BY MOUTH TWICE DAILY Active insulin glargine (LANTUS) 100 unit/mL pen syringe Inject by subcutaneous injection. Active Active Problems No known active problems Encounters Date Type Department Care Team Description 09/17/2024 External Device Data [facility] ABSTRACTION Provider, Abstract 09/16/2024 External Device Data [facility] ABSTRACTION Provider, Abstract 09/15/2024 External Device Data [facility] ABSTRACTION Provider, Abstract 09/08/2024 External Device Data [facility] Provider, Abstract 08/10/2024 4:30 PM PRINTED CIRCUIT BOARD PCB DESIGNER Telephone Check Up [facility] Oncology [facility] Hematology [facility] [address] [place] [address] Dionicio Hill MD Chronic anemia (Primary Dx) 08/10/2024 Orders Only [facility] Oncology and Hematology [facility] [address] [place] [address] Dionicio Hill MD 08/06/2024 Telephone [facility] Oncology and Hematology [facility] [address] [place] [address] Dionicio Hill MD lab work from Last 3 Months Family History Medical History Relation Name Comments Esophageal Cancer Father Heart Disease Father Lung Cancer Mother Relation Name Status Comments Daughter 1 Alive Daughter 2 Alive Father Mother Son 1 Alive Son 2 Alive Social History Tobacco Use Types Packs/Day Years Used Date Smoking Tobacco: Never Smokeless Tobacco: Never Tobacco Cessation:Counseling Given: Not Answered Alcohol Use Standard Drinks/Week Comments Never 0 (1 standard drink = 0.6 oz pur e alcohol) Sex and Gender Information Value Date Recorded Sex Assigned at Not on file Legal Sex Male 8:00 AM CDT Gender Identity Not on file Sexual Orientation Not on file Last Filed Vital Signs Vital Sign Reading Time Taken Comments Blood Pressure 115/66 02/14/2024 9:48 AM CDT Pulse 74 02/14/2024 9:48 AM CDT Temperature 36.7 C (98 F) 02/14/2024 9:48 AM CDT Respiratory Rate 16 02/14/2024 9:48 AM CDT Oxygen Saturation 97% 02/14/2024 9:48 AM CDT Inhaled Oxygen Concentration - - Weight 95.7 kg (211 lb) 02/14/2024 9:48 AM CDT Height - - Body Mass Index - - Plan of Treatment Health Maintenance Due Date Last Done Comments DIABETES ANNUAL FOOT EXAM 1968 DIABETES MICROALBUMIN ANNUAL SCREEN 1968 LDL CHOLESTEROL ANNUAL 1968 DTAP/TDAP/TD VACCINES (1 - Tdap) 1969 PNEUMOCOCCAL VACCINE 65+ YEARS (1 of 2 - PCV) 07/29/19 69 COLORECTAL SCREENING 1995 Colorectal Cancer Screening 1995 FIT-DNA Q 3 years 1995 FIT/FOBT Q 1 year 1995 Flex Sig/CT Colonography Q 5 years 1995 ZOSTER VACCINE (1 of 2) 2000 RSV VACCINE (60+ or ) (1 - Risk 60-74 years 1-dose series) 2010 DIABETES HBA1C Q 6 MONTHS 07/03/2019 12/31/2018 DIABETES ANNUAL RETINAL EXAM 01/29/2020 01/28/2019 INFLUENZA VACCINE (#1) 2024 Procedures Procedure Name Priority Date/Time Associated Diagnosis Comments COMPREHENSIVE METABOLIC PANEL Routine 08/07/2024 1:29 PM PRINTED CIRCUIT BOARD PCB DESIGNER COMPREHENSIVE METABOLIC PANEL Routine 08/07/2024 1:20 PM PRINTED CIRCUIT BOARD PCB DESIGNER BASIC METABOLIC PANEL Routine 08/07/2024 11:46 AM PRINTED CIRCUIT BOARD PCB DESIGNER CBC WITH DIFFERENTIAL Routine 08/07/2024 11:21 AM PRINTED CIRCUIT BOARD PCB DESIGNER from Last 3 Months Results * COMPREHENSIVE METABOLIC PANEL (08/07/2024 1:29 PM PRINTED CIRCUIT BOARD PCB DESIGNER) Only the most recent of2 resultswithin the time period is included. Blood Dionicio Hill MD CHEMISTRY ORDERABLES Final Resu lt * BASIC METABOLIC PANEL (08/07/2024 11:46 AM PRINTED CIRCUIT BOARD PCB DESIGNER) Blood Dionicio Hill MD CHEMISTRY ORDERABLES Final Resu lt * CBC WITH DIFFERENTIAL (08/07/2024 11:21 AM PRINTED CIRCUIT BOARD PCB DESIGNER) Blood us Dionicio Hill MD HEMATOLOGY ORDERABLES Final Res ult from Last 3 Months Insurance [facility] [id number] Care Teams Prison Teacher Relationship Specialty Start Date End Date Rodolfo Topete MD [address] [facility] [address] [place] [address] PCP - General Internal Medicine 12/10/22
[2024-10-18 16:23] VITALS: BP 137/58; PULSE 84; RESP 16; TEMP 36.4; O2SAT 97
--- NOTE | 2024-10-18 16:33 | ED.CHESTPAIN ---
HPI - Chest Pain General Chief Complaint: Chest Pain Stated Complaint: chest pain Time Seen by Provider: 10/18/24 16:33 Focused HPI: This is a 74 year old male that presents to the ER for chest pain. Reports yesterday he sneezed. He felt a sharp pain in the left side of his chest. It felt better after rest. Reports today he sneezed again and felt worsening pain that did not go away with rest. GENERAL: Well-appearing, well-nourished, and in no acute distress. HEAD: Normocephalic, atraumatic. CHEST: Clear to auscultation. ?No respiratory distress. HEART: Regular rate and rhythm.? NEURO: ?Alert and oriented x3. Patient screened in triage and initial orders placed.? ?Additional care and disposition to be based upon?diagnostic testing and treatment. Related Data Home Medications ?Medication ?Instructions ?Recorded ?Confirmed ?Last Taken ?Type folic acid 1 mg tablet 5 mg PO QAM 05/30/21 09/25/24 11/07/23 History gabapentin 600 mg tablet 600 mg PO TID 05/30/21 09/25/24 11/07/23 History metformin 1,000 mg tablet 1,000 mg PO BID 05/30/21 09/25/24 11/07/23 History multivitamin 1 tablet PO DAILY 05/30/21 09/25/24 10/25/23 History pantoprazole 40 mg tablet,delayed 40 mg PO DAILY 05/30/21 09/25/24 11/07/23 History release vit A 7,160 unit-vit C 113 mg-vit 1 tablet PO DAILY 05/30/21 09/25/24 10/25/23 History E 100 [id number] tablet losartan 50 mg tablet 50 mg PO DAILY 09/05/23 09/25/24 10/25/23 History atorvastatin 20 mg tablet 20 mg PO DAILY 10/25/23 09/25/24 10/25/23 History cyanocobalamin (vitamin B-12) 5,000 mcg PO DAILY 03/24/24 09/25/24 Unknown History 5,000 mcg capsule insulin glargine 100 unit/mL 15 unit subcut QPM 03/24/24 09/25/24 Unknown History subcutaneous solution (Lantus U-100 Insulin) Allergies Allergy/AdvReac Type Severity Reaction Status Date / Time amoxicillin Allergy Unknown Nausea and Verified 03/24/24 11:06 Vomiting clavulanic acid Allergy Unknown Nausea and Verified 03/24/24 11:06 Vomiting Penicillins Allergy Unknown Unknown Verified 03/24/24 11:06 [facility] Past Medical History Medical History Pancytopenia Social History Social History Smoking status: Never smoker Alcohol intake: never Substance use: never Substance use type: does not use Living arrangements: with family Spiritual care concerns: No Course Vital Signs Vital signs: Vital Signs Temperature 97.6 F 10/18/24 16:23 Pulse Rate 84 10/18/24 16:23 Respiratory Rate 16 10/18/24 16:23 Blood Pressure 137/58 L 10/18/24 16:23 Pulse Oximetry 97 10/18/24 16:23 Oxygen Delivery Room Air 10/18/24 16:23 Temperature 97.6 F 10/18/24 16:23 Pulse Rate 84 10/18/24 16:23 Respiratory Rate 16 10/18/24 16:23 Blood Pressure 137/58 L 10/18/24 16:23 Pulse Oximetry 97 10/18/24 16:23 Oxygen Delivery Room Air 10/18/24 16:23 MDM - Chest Pain MDM Narrative Medical decision making narrative: Patient left after medical screening exam and initial workup, and before any further evaluation or management Lab Data 10/18/24 16:36 10/18/24 16:36 Labs: Lab Results 10/18/24 Range/Units 16:36 WBC 6.3 (4.5-10.0) K/mm3 RBC 3.86 L (4.6-6.20) M/mm3 Hgb 12.4 L (14.0-18.0) g/dL Hct 36.3 L (42.0-52.0) % MCV 94.0 (80-100) fl MCH 32.1 (26-34) pg MCHC 34.2 (32-36) g/dl RDW 13.4 (11.5-14.5) % Plt Count 102 L (150-375) k/mm3 MPV 9.0 (7.4-10.4) fl Immature Gran % (Auto) 0.2 (0-0.5) % Neut % (Auto) 73.7 H (45.5-73.1) % Lymph % (Auto) 16.5 L (18.3-44.2) % Sebastian % (Auto) 6.9 (2.6-8.5) % Eos % (Auto) 2.4 (0-4.4) % Baso % (Auto) 0.3 (0.2-1.2) % Lymph # (Auto) 1.03 (0.9-3.2) K/mm3 Sebastian # (Auto) 0.4 (0.1-0.6) K/mm3 Eos # (Auto) 0.2 (0-0.3) K/mm3 Baso # (Auto) 0.0 (0.0-0.1) K/mm3 Abs Immat Gran (auto) 0.01 (0.00-0.031) K/mm3 Absolute Neuts (auto) 4.6 (1.3-6.7) K/mm3 Absolute Nucleated RBC 0.000 (0.0-0.012) K/mm3 Nucleated RBC % 0.0 (0.0-0.2) % % Immature Plt Fraction 2.0 (0.9-11.2) % PT 15.1 H (11.1-14.7) Seconds INR 1.2 APTT 33.1 (22.3-36.8) Seconds Sodium 137 (137-145) mmol/L Potassium 4.0 (3.4-5.0) mmol/L Chloride 102 (98-107) mmol/L Carbon Dioxide 25 (22-30) mmol/L Anion Gap 10 (4-12) mmol/L BUN 13 (9-20) mg/dL Creatinine 1.01 (0.7-1.3) mg/dL Estim Creat Clear Calc 68 ml/min Estimated GFR > 60 (59 - ) Glucose 210 H (65-110) mg/dL Calcium 9.4 (8.4-10.2) mg/dL Total Bilirubin 0.9 (0.2-1.3) mg/dL AST 41 (17-59) U/L ALT 60 H (6-50) U/L Alkaline Phosphatase 132 H (38-126) U/L Troponin I < 0.012 (0.000-0.034) ng/mL Total Protein 8.0 (6.3-8.2) g/dL Albumin 4.3 (3.5-5.1) g/dL Lipase 119 (23-300) U/L Imaging Data Radiologist's impression: ITS Impressions Chest X-Ray 10/18/24 17:00 IMPRESSION: No focal infiltrate or effusion. Discharge Plan Discharge Clinical Impression: Chest pain Qualifiers: Chest pain type: unspecified Qualified Code(s): R07.9 - Chest pain, unspecified Patient Disposition: Elopement After Seen by Prov Condition: Guarded Prognosis Patient Language: Venezuelan Prescriptions: No Action cyanocobalamin (vitamin B-12) 5,000 mcg capsule 5,000 mcg PO DAILY losartan 50 mg tablet 50 mg PO DAILY insulin glargine [Lantus U-100 Insulin] 100 unit/mL solution 15 unit subcut QPM multivitamin Tablet 1 tablet PO DAILY gabapentin 600 mg tablet 600 mg PO TID pantoprazole 40 mg tablet,delayed release (DR/EC) 40 mg PO DAILY metformin 1,000 mg tablet 1,000 mg PO BID folic acid 1 mg tablet 5 mg PO QAM vit A-vit C-vit [id number] 7,160-113-100 [id number] Tablet 1 tablet PO DAILY atorvastatin 20 mg Tablet 20 mg PO DAILY Follow-up/Referrals: Efrem,Rodolfo Green MD [Primary Care Provider] -
[2024-10-18 16:44] LABS: Basophils Percent Auto 0.3 % (0.2-1.2); Eosinophils Absolute Auto 0.2 K/mm3 (0-0.3); Eosinophils Percent Auto 2.4 % (0-4.4); Hematocrit 36.3 % (42.0-52.0); Hemoglobin 12.4 g/dL (14.0-18.0); Immature Granulocyte Absolute 0.01 K/mm3 (0.00-0.031); Immature Granulocyte Percent A 0.2 % (0-0.5); Lymphocytes Absolute Auto 1.03 K/mm3 (0.9-3.2); Lymphocytes Percent Auto 16.5 % (18.3-44.2); Mean Corpuscular HGB Conc 34.2 g/dl (32-36); Mean Corpuscular Hemoglobin 32.1 pg (26-34); Monocytes Absolute Auto 0.4 K/mm3 (0.1-0.6); Monocytes Percent Auto 6.9 % (2.6-8.5); Neutrophils Absolute Auto 4.6 K/mm3 (1.3-6.7); Neutrophils Percent Auto 73.7 % (45.5-73.1); Platelet Count Result 102 k/mm3 (150-375); Red Blood Count 3.86 M/mm3 (4.6-6.20); Red Cell Distribution Width 13.4 % (11.5-14.5); White Blood Count 6.3 K/mm3 (4.5-10.0)
[2024-10-18 16:54] LABS: Alanine Aminotransferase 60 U/L (6-50); Albumin Level 4.3 g/dL (3.5-5.1); Alkaline Phosphatase 132 U/L (38-126); Anion Gap 10 mmol/L (4-12); Aspartate Amino Transferase 41 U/L (17-59); Bilirubin,Total 0.9 mg/dL (0.2-1.3); Blood Urea Nitrogen 13 mg/dL (9-20); Calcium 9.4 mg/dL (8.4-10.2); Carbon Dioxide 25 mmol/L (22-30); Chloride 102 mmol/L (98-107); Estimated CRCL calculation 68 ml/min; Estimated Glomerular Filt Rate > 60; Glucose 210 mg/dL (65-110); Lipase 119 U/L (23-300); Sodium 137 mmol/L (137-145)
[2024-10-18 16:55] LABS: Partial Thromboplastin Time 33.1 Seconds (22.3-36.8)
[2024-10-18 17:05] LABS: Troponin I < 0.012 ng/mL (0.000-0.034)
[2024-10-18 17:15] LABS: INR 1.2; Prothrombin Time 15.1 Seconds (11.1-14.7)
--- NOTE | 2024-10-18 20:33 | PC.NURSE ---
Pt came to nurse's desk stating, I would like to leave can you take my IV out. Pt stated he is still having cp but it is improving. This RN recommended pt stay and be seen by MD. Pt insisting on leaving and stated if his symptoms returned/ got worst he would come back. IV removed by this RN.
--- OUTSIDE RECORDS SUMMARY | 2024-10-18 20:42 | XMS_ITS | Clinical Summary ---
Author Organization [facility] Address [address] [place] [address] Care Team Providers Care Underwriting Director Name Role Phone Rodolfo Topete MD Primary Care Provider [phone] Allergies Active Allergy Reactions Criticality Noted Date [...] needed. 05/23/2024 Active Lancets (ONETOUCH DELICA PLUS [id number]) [facility] USE TO CHECK BLOOD SUGAR EVERY DAY [...] liver 03/01/2023 Essential hypertension 03/30/2022 Diabetic neuropathy ([facility]) 06/24/2020 Obstructive sleep apnea syndrome 04/15/2019 Uncontrolled type 2 diabetes mellitus with hyperglycemia ([facility]) 12/31/2018 Pure hypercholesterolemia 06/20/2018 Rheumatoid arthritis involvi ng multiple sites ([facility]) 05/22/2017 Family History Medical History Relation Comments [...] Comments Blood Pressure 153/88 07/03/2024 8:06 AM PACKING CHECKER Pulse 69 07/03/2024 8:06 AM PACKING CHECKER Temperature 36.1 C (96.9 F) 07/03/2024 7:50 AM PACKING CHECKER Respiratory Rate 18 06/19/2024 3:00 PM CDT Oxygen Saturation 97% 07/03/2024 7:50 AM PACKING CHECKER Inhaled Oxygen Concentration - - Weight 99.2 kg (218 lb 9.6 oz) 07/03/2024 7:50 A M PACKING CHECKER Height 180.3 cm (5' 11 ) 07/03/2024 7:50 AM PACKING CHECKER Body Mass Index 30.49 07/03/2024 7:50 AM PACKING CHECKER Plan of Treatment Health Maintenance Due Date [...] exists Influenza Adult (#1) 2024 PHQ-2 (Physician [place]) 08/26/2024 06/02/2024 PHQ-2 (Physician [place]) 06/02/2025 06/02/2024 Hepatitis C Completed 03/14/2018 Meningococcal B Vaccine Aged Out No l onger eligible based on patient's age to complete this topic Meningococcal Vaccine Aged Out No kylah parvez eligible based on patient's age to complete this topic RSV Immunizations Under 20 Months Aged Out No longer eligible based on patient's age to complete this topic Insurance [place] [address] [place] [address] Care Teams Underwriting Director Relationship Specialty Start Date End Date Rodolfo Topete MD [address] [address] PCP - General INTERNAL MEDICINE 07/03/24
--- OUTSIDE RECORDS SUMMARY | 2024-10-18 20:42 | XMS_ITS | Referral Summary ---
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 Gender Identity Not on file Sexual Orientation Not on file Last Filed Vital Signs Vital Sign Reading Time Taken Comments Blood Pressure 118/76 07/22/2019 8:28 AM HABITAT BIOLOGIST Pulse 73 07/22/2019 8:28 AM HABITAT BIOLOGIST Temperature 36.1 C (97 F) 07/22/2019 8:28 AM HABITAT BIOLOGIST Respiratory Rate - - Oxygen Saturation 97% 07/22/2019 8:28 AM HABITAT BIOLOGIST Inhaled Oxygen Concentration - - Weight 95.3 kg (210 lb) 07/22/2019 8:28 AM HABITAT BIOLOGIST Height 182.9 cm (6') 07/22/2019 8:28 AM HABITAT BIOLOGIST Body Mass Index 28.48 07/22/2019 8:28 AM HABITAT BIOLOGIST Plan of Treatment Not on file Insurance MEDICARE [facility] HMO/PPO Address: [address] [address] [place] [address] Care Teams Shop Tech Relationship Specialty Start Date End Date Rodolfo Topete MD [address] [address] PCP - General Internal Medicine 06/15/19
--- OUTSIDE RECORDS SUMMARY | 2024-10-18 20:42 | XMS_ITS | Clinical Summary ---
Author Organization [facility] [place] Address [address] [place] [address] Care Team Providers Care International Editorial Producer Name Role Phone Rodolfo Topete MD Primary [...] by mouth 2 times daily 9 Active [place] oil, bulk, oil Apply topically Active methotrexate [...] on file Legal Sex Male 1:21 PM IMAGING SCIENCE PROFESSOR Gender Identity Not on file Sexual Orientation Not on file Obstetrics History Last Filed Vital Signs Vital Sign Reading Time Taken Comments Blood Pressure 118/76 07/22/2019 8:28 AM IMAGING SCIENCE PROFESSOR Pulse 73 07/22/2019 8:28 AM IMAGING SCIENCE PROFESSOR Temperature 36.1 C (97 F) 07/22/2019 8:28 AM IMAGING SCIENCE PROFESSOR Respiratory Rate - - Oxygen Saturation 97% 07/22/2019 8:28 AM IMAGING SCIENCE PROFESSOR Inhaled Oxygen Concentration - - Weight 95.3 kg (210 lb) 07/22/2019 8:28 AM IMAGING SCIENCE PROFESSOR Height 182.9 cm (6') 07/22/2019 8:28 AM IMAGING SCIENCE PROFESSOR Body Mass Index 28.48 07/22/2019 8:28 AM IMAGING SCIENCE PROFESSOR Plan of Treatment Not on file Insurance MEDICARE [facility] Care Teams International Editorial Producer Relationship Specialty Start Date End Date Rodolfo Topete MD [address] [address] PCP - General Internal Medicine 06/15/19
--- OUTSIDE RECORDS SUMMARY | 2024-10-18 20:42 | XMS_ITS | Clinical Summary ---
Author Organization [facility] Address [address] [place] [address] Care Team Providers Care Electrical Line Splicer Name Role Phone Danny Pink MD Unavailable Rodolfo Topete MD Primary Care Provider Source Comments [facility],non-owned Affiliates and Associated Physician Practices is amultiple site organization consisting of ambulatory clinics and hospital sitesin [place], [place], [place] and [place]. This disclosure is being madepursuant to the Care Everywhere program and may not contain all information available regarding this patient. Last updated 18.[facility] Allergies Active Allergy Reactions Criticality Noted Date [...] mg by mouth once daily 02/08/2019 Active [place] Oil Active traMADol (ULTRAM) 50 MG tablet [...] this topic Medical Devices Implanted Type Area Manager Developmental Device Identifier Shelf Expiration Date Model / Serial / Lot Screw 1.55mm 2.65mm 4mm Willy Slfrancoise Drl Implanted:Qty: 1 on 12/30/2018 by Mitzy Berkowitz MD at [facility] Right: Orbit Synthes Maxillofacial 224 .01 / / Screw 1.55mm 2.65mm 4mm Willy Slfrancoise Drl Implanted:Qty: 1 on 12/30/2018 by Mitzy Berkowitz MD at [facility] Right: Orbit Synthes Maxillofacial 224 .01 / / Plate 3d Sm .4mm Preform Contr Edg Seg Implanted:Qty: 1 on 12/30/2018 by Mitzy Berkowitz MD at [facility] Right: Orbit Synthes Maxillofacial 811 / / Explanted Type Area Manager Developmental Device Identifier Shelf Expiration Date Model / Serial / Lot Impl Orbt Suprafoil Nyl [id number] Explanted:Qty: 1 on 12/30/2018 by Mitzy Berkowitz MD at [facility] Right: Eye S [employer] 08/30/2020 -SS-035 / / [id number] Procedures Procedure Name Priority Date/Time Associated Diagnosis [...] Resulting Agency Comment Lab Testing performed at: [place] [address] [place] [id number] Danny Pink MD LAB - CHEMISTRY ORD ERABLES [facility] INSURANCE BILL [address] [place] [address] * EYE EXAM (01/28/2019 11:50 AM CDT) Anatomical Region Laterality Modality Other Narrative 01/28/2019 11:50 AM CDT Ordered by an unspecified provider. Scanned Document SCANNING ONLY * (ABNORMAL) HEMOGLOBIN A1C (12/31/2018 3:59 AM CDT) Hemoglobin A1c 13.4(H) 4.4 - 6.3 % 12/31/2018 9:49 AM CDT [facility] Estimated Average Glucose 338 mg/dL 12/31/2018 9:49 AM CDT [facility] Comment: HbA1c Interpretation: Treatment target values recommended by ADA and other clinical organizations should be used to evaluate metabolic control in patients. Treatment Target Values: Normal : < 5.7% Pre-diabetes: 5.7-6.4% Diabetes: Equal to or greater than 6.5% Reference: [place] Diabetes Association Standards of Care in Diabetes -2014 In patients 70 years and older consider HbA1c target range of 7.0-7.5% Reference: Diabetes Mellitus in Older People: Position Statement on behalf of the International Association of Gerontology and Geriatrics (IAGG), the Diabetes Working Alliance Party for Older People (EDWPOP), and the International Task Force of Experts in Diabetes. Benito Diop et al. J [place] Medical Directors Association. 2012 Test results diagnostic of diabetes should be repeated for confirmation. The Sebia Capillary 2 assay for the measurement of HbA1c is a National Glycohemoglobin Standardization Program (NGSP)certified method. Blood BLOOD SPECIMEN / Unknown Lab Venipuncture / Unknown 12/31/2018 3:59 AM CDT 12/31/2018 4:02 AM CDT Vern Lipscomb MD LAB - CHEMISTRY [place] [address] [phone] * HEPATITIS SCREEN ACUTE (03/14/2018 10:40 AM [...] with a HCV Nucleic Acid Amplification test ([id number]). Blood BLOOD SPECIMEN / Unknown 03/14/2018 10:40 AM CDT 03/14/2018 Narrative Resulting Agency Comment [facility] [address] [phone] Danny Pink MD LAB - CHEMISTRY NOLAN GALLAGHER [facility] INSURANCE BILL [address] [place] [address] from Last 3 Months or Most Recently Relevant to Health Maintenance Insurance Payer Benefit Plan / Group Subscriber ID Effective Dates Phone Address Type [facility] MANAGED MEDICARE ADV [facility] STATE RETIREES MEDICARE ADV [id number] 08/27/2024-Pres ent [address] [address] [place] [address] Medicare-Man aged Care MEDICARE MEDICARE PART A AND B [id number] 07/26/2015-Pre sent [address] [place] [address] Medicare UHC MANAGED MEDICARE ADV [facility] STATE RETIREES MEDICARE ADV [id number] 08/27/2024-Pres ent [address] [address] [place] [address] Medicare-Man aged Care [facility] UMR NON-PPO [id number] Effective for all dates [address] [address] [place] [address] PPO [facility] UMR NON-PPO [id number] Effective for all dates [address] [address] [place] [address] PPO [facility] MANAGED MEDICARE ADV [facility] STATE RETIREES MEDICARE ADV [id number] 08/27/2024-Pres ent [address] [address] [place] [address] Medicare-Man aged Care MEDICARE WPS MEDICARE PART B [id number] 02/23/2017-Pres ent [address] [address] [place] [address] Medicare MEDICARE WPS MEDICARE PART B [id number] 02/23/2017-Pres ent [address] [address] [place] [address] Medicare MEDICARE WPS MEDICARE PART B [id number] 02/23/2017-Pres ent [address] [address] [place] [address] Medicare MEDICARE WPS MEDICARE PART B [id number] 02/23/2017-Pres ent [address] [address] [place] [address] Medicare MEDICARE WPS MEDICARE PART B [id number] 02/23/2017-Pres ent [address] [address] [place] [address] Medicare MEDICARE WPS MEDICARE PART B [id number] 02/23/2017-Pres ent [address] [address] [place] [address] Medicare MEDICARE WPS MEDICARE PART B [id number] 02/23/2017-Pres ent [address] [address] [place] [address] Medicare [facility] UMR NON-PPO [id number] Effective for all dates [address] [address] [place] [address] PPO [facility] UMR [place] NAM [id number] 08/26/2014-Pres ent [address] [place] [address] PPO Advance Directives * Full Code (Latest Code Status on File) Date Activated Date Inactivated Comments 12/31/2018 3:19 AM 01/02/2019 7:51 PM * Full Code Date Activated Date Inactivated Comments 12/31/2018 12:09 AM 12/31/2018 3:19 AM * Full Code Date Activated Date Inactivated Comments 12/30/2018 11:59 PM 12/31/2018 12:09 AM Care Teams Electrical Line Splicer Relationship Specialty Start Date End Date Rodolfo Topete MD [address] [place] [phone] PCP - General Internal Medicine 12/30/18 Danny Pink MD Rheumatology 04/10/18
--- OUTSIDE RECORDS SUMMARY | 2024-10-18 20:43 | XMS_ITS | Encounter Summary ---
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
--- OUTSIDE RECORDS SUMMARY | 2024-10-18 20:43 | XMS_ITS | Referral Summary ---
Author Organization [facility] Address [address] [place] [address] Care Team Providers Care Loin Trimmer Name Role Phone Danny Pink MD Unavailable [phone] Rodolfo Topete MD Primary Care Provider Source Comments [facility],non-owned Affiliates and Associated Physician Practices is amultiple site organization consisting of ambulatory clinics and hospital sitesin [place], [place], [place] and [place]. This disclosure is being madepursuant to the Care Everywhere program and may not contain all information available regarding this patient. Last updated 18.[facility] Allergies Active Allergy Reactions Criticality Noted Date [...] mg by mouth once daily 02/08/2019 Active [place] Oil Active traMADol (ULTRAM) 50 MG tablet [...] on file Medical Devices Implanted Type Area Data Visualization Developer Device Identifier Shelf Expiration Date Model / Serial / Lot Screw 1.55mm 2.65mm 4mm Mdfc Slf Drl Implanted:Qty: 1 on 12/30/2018 by Mitzy Berkowitz MD at [facility] Right: Orbit Synthes Maxillofacial 04.503.224 .01 / / Screw 1.55mm 2.65mm 4mm Mdfc Slf Drl Implanted:Qty: 1 on 12/30/2018 by Mitzy Berkowitz MD at [facility] Right: Orbit Synthes Maxillofacial 04.503.224 .01 / / Plate 3d Sm .4mm Preform Contr Edg Seg Implanted:Qty: 1 on 12/30/2018 by Mitzy Berkowitz MD at [facility] Right: Orbit Synthes Maxillofacial 04.503.811 / / Explanted Type Area Data Visualization Developer Device Identifier Shelf Expiration Date Model / Serial / Lot Impl Orbt Suprafoil Nyl [id number] Explanted:Qty: 1 on 12/30/2018 by Mitzy Berkowitz MD at [facility] Right: Eye S [employer] 08/30/2020 F-SS-035 / / [id number] Procedures Procedure Name Priority Date/Time Associated Diagnosis [...] Resulting Agency Comment Lab Testing performed at: [facility] [address] [place] [id number] Danny Pink MD LAB - CHEMISTRY ORD ERABLES [facility] INSURANCE BILL [address] [address] * EYE EXAM (01/28/2019 11:50 AM CDT) Anatomical Region Laterality Modality Other Narrative 01/28/2019 11:50 AM CDT Ordered by an unspecified provider. Scanned Document SCANNING ONLY * (ABNORMAL) HEMOGLOBIN A1C (12/31/2018 3:59 AM CDT) Pathologist [facility] Hemoglobin A1c 13.4(H) 4.4 - 6.3 % 12/31/2018 9:49 AM CDT [facility] Estimated Average Glucose 338 mg/dL 12/31/2018 9:49 AM CDT [facility] Comment: HbA1c Interpretation: Treatment target values recommended by ADA and other clinical organizations should be used to evaluate metabolic control in patients. Treatment Target Values: Normal : < 5.7% Pre-diabetes: 5.7-6.4% Diabetes: Equal to or greater than 6.5% Reference: [place] Diabetes Association Standards of Care in Diabetes -2014 In patients 70 years and older consider HbA1c target range of 7.0-7.5% Reference: Diabetes Mellitus in Older People: Position Statement on behalf of the International Association of Gerontology and Geriatrics (IAGG), the Diabetes Working Green Party for Older People (EDWPOP), and the International Task Force of Experts in Diabetes. Benito Diop, et al. J [place] Medical Directors Association. 2012 Test results diagnostic of diabetes should be repeated for confirmation. The Sebia Capillary 2 assay for the measurement of HbA1c is a National Glycohemoglobin Standardization Program (NGSP)certified method. Blood BLOOD SPECIMEN / Unknown Lab Venipuncture / Unknown 12/31/2018 3:59 AM CDT 12/31/2018 4:02 AM CDT Vern Lipscomb MD LAB - CHEMISTRY [place] [facility] [address] [phone] * HEPATITIS SCREEN ACUTE (03/14/2018 10:40 AM [...] with a HCV Nucleic Acid Amplification test ([id number]). Blood BLOOD SPECIMEN / Unknown 03/14/2018 10:40 AM CDT 03/14/2018 Narrative Resulting Agency Comment [facility] [address] [facility] [id number] Danny Pink MD LAB - CHEMISTRY ORD ERABLES [facility] INSURANCE BILL [address] [place] [address] from Last 3 Months or Most Recently Relevant to Health Maintenance Insurance Payer Benefit Plan / Group Subscriber ID Effective Dates Phone Address Type [facility] MANAGED MEDICARE ADV [facility] STATE RETIREES MEDICARE ADV [id number] 08/27/2024-Pres ent [address] [address] [place] [address] Medicare-Man aged Care MEDICARE MEDICARE PART A AND B [id number] 07/26/2015-Pre sent [address] [place] [address] Medicare UHC MANAGED MEDICARE ADV [facility] STATE RETIREES MEDICARE ADV [id number] 08/27/2024-Pres ent [address] [address] [place] [address] Medicare-Man aged Care [facility] UMR NON-PPO [id number] Effective for all dates [address] [address] [place] [address] PPO [facility] UMR NON-PPO [id number] Effective for all dates [address] [address] [place] [address] PPO [facility] MANAGED MEDICARE ADV [facility] STATE RETIREES MEDICARE ADV [id number] 08/27/2024-Pres ent [address] [address] [place] [address] Medicare-Man aged Care MEDICARE WPS MEDICARE PART B [id number] 02/23/2017-Pres ent [address] [address] [place] [address] Medicare MEDICARE WPS MEDICARE PART B [id number] 02/23/2017-Pres ent [address] [address] [place] [address] Medicare MEDICARE WPS MEDICARE PART B [id number] 02/23/2017-Pres ent [address] [address] [place] [address] Medicare MEDICARE WPS MEDICARE PART B [id number] 02/23/2017-Pres ent [address] [address] [place] [address] Medicare MEDICARE WPS MEDICARE PART B [id number] 02/23/2017-Pres ent [address] [address] [place] [address] Medicare MEDICARE WPS MEDICARE PART B [id number] 02/23/2017-Pres ent [address] [address] [place] [address] Medicare MEDICARE WPS MEDICARE PART B [id number] 02/23/2017-Pres ent [address] [address] [place] [address] Medicare [facility] UHC UMR NON-PPO [id number] Effective for all dates [address] [address] [place] [address] PPO [facility] UMR COMPASS NAM [id number] 08/26/2014-Pres ent [address] [place] [address] PPO Advance Directives * Full Code (Latest Code Status on File) Date Activated Date Inactivated Comments 12/31/2018 3:19 AM 01/02/2019 7:51 PM * Full Code Date Activated Date Inactivated Comments 12/31/2018 12:09 AM 12/31/2018 3:19 AM * Full Code Date Activated Date Inactivated Comments 12/30/2018 11:59 PM 12/31/2018 12:09 AM Care Teams Loin Trimmer Relationship Specialty Start Date End Date Rodolfo Topete MD [address] [place] [address] [address] [place] [phone] PCP - General Internal Medicine 12/30/18 Danny Pink MD Rheumatology 04/10/18
--- OUTSIDE RECORDS SUMMARY | 2024-10-18 20:43 | XMS_ITS | Clinical Summary ---
Author Organization [facility] Address [address], [facility] [address] [place] [address] Phone Care Team Providers Care Degree Clerk Name Role Phone Indira Max MD Primary Care Provider [phone] Horacio Perez MD Unavailable [phone] Allergies Active Allergy Reactions Criticality Noted Date [...] Comments Blood Pressure 124/70 07/06/2022 9:55 AM RETAIL MERCHANDISER Pulse 75 07/06/2022 9:55 AM RETAIL MERCHANDISER Temperature 36.7 C (98 F) 07/06/2022 9:55 AM RETAIL MERCHANDISER Respiratory Rate 18 07/06/2022 9:55 AM RETAIL MERCHANDISER Oxygen Saturation 97% 07/06/2022 9:55 AM RETAIL MERCHANDISER Inhaled Oxygen Concentration - - Weight 98 kg (216 lb) 07/06/2022 9:55 AM RETAIL MERCHANDISER Height 182.9 cm (6') 07/06/2022 9:55 AM RETAIL MERCHANDISER Body Mass Index 29.29 07/06/2022 9:55 AM RETAIL MERCHANDISER Plan of Treatment Health Maintenance Due Date [...] age to complete this topic Insurance MEDICARE [facility] Care Teams Degree Clerk Relationship Specialty Start Date End Date Indira Max MD [address] [place] [address] PCP - General Neurology 06/08/22 Horacio Perez MD [address] [place] [phone] Consulting Physician Oncology 06/08/22
--- OUTSIDE RECORDS SUMMARY | 2024-10-18 20:43 | XMS_ITS | Clinical Summary ---
Author Organization [facility] Address [address] [place] [address] Care Team Providers Care Helicopter Pilot Name Role Phone Rodolfo Topete MD Primary Care Provider [phone] Allergies Active Allergy Reactions Criticality Noted Date [...] STL ABSTRACTION Provider, Abstract 08/10/2024 4:30 PM NUCLEAR POWER PLANT ENGINEER Telephone Check Up [facility] Oncology [facility] Hemat[facility] [address] [place] [address] Dionicio Hill MD Chronic anemia (Primary Dx) 08/10/2024 Orders Only [facility] Oncology and Hematology [facility] Faith [address] [place] [address] Dionicio Hill MD 08/06/2024 Telephone [facility] Oncology and Hematology [facility] [address] [place] [address] Dionicio Hill MD lab work from Last [...] COMPREHENSIVE METABOLIC PANEL Routine 08/07/2024 1:29 PM NUCLEAR POWER PLANT ENGINEER COMPREHENSIVE METABOLIC PANEL Routine 08/07/2024 1:20 PM NUCLEAR POWER PLANT ENGINEER BASIC METABOLIC PANEL Routine 08/07/2024 11:46 AM NUCLEAR POWER PLANT ENGINEER CBC WITH DIFFERENTIAL Routine 08/07/2024 11:21 AM NUCLEAR POWER PLANT ENGINEER from Last 3 Months Results * COMPREHENSIVE METABOLIC PANEL (08/07/2024 1:29 PM NUCLEAR POWER PLANT ENGINEER) Only the most recent of2 resultswithin the time period is included. Blood Dionicio Hill MD CHEMISTRY ORDERABLES Final Resu lt * BASIC METABOLIC PANEL (08/07/2024 11:46 AM NUCLEAR POWER PLANT ENGINEER) Blood Dionicio Hill MD CHEMISTRY ORDERABLES Final Resu lt * CBC WITH DIFFERENTIAL (08/07/2024 11:21 AM NUCLEAR POWER PLANT ENGINEER) Blood us Dionicio Hill MD HEMATOLOGY ORDERABLES Final Res ult from Last [address] [facility] [id number] Care Teams Helicopter Pilot Relationship Specialty Start Date End Date Rodolfo Topete MD [address] [facility] [address] [place] [address] PCP - General Internal Medicine 12/10/22
--- OUTSIDE RECORDS SUMMARY | 2024-10-18 20:43 | XMS_ITS | Encounter Summary ---
Author Organization [facility] Address [address] [address] Care Team Providers Care Print Washer Name Role Phone Danny Pink MD Unavailable Rodolfo Topete MD Primary Care Provider [phone] Encounter Details Date Type Department Care Team (Late st Contact Info) Description 12/30/2018 Ophth Exam [facility] [address] [place] [phone] Salma Cast MD [address] [place] [address] Social History Tobacco Use Types Packs/Day Years [...] on filedocumented in this encounter Care Teams Print Washer Relationship Specialty Start Date End Date Rodolfo Topete MD [address] [place] [address] [address] [place] [address] PCP - General Internal Medicine 12/30/18 Danny Pink MD Rheumatology 04/10/18 documented as of this encounter
--- OUTSIDE RECORDS SUMMARY | 2024-10-18 20:43 | XMS_ITS | Patient Health Summary ---
Author Organization [facility] Address [address] [place] [address] Care Team Providers Care Digital Operations Analyst Name Role Phone Danny Pink MD Unavailable [phone] Rodolfo Topete MD Primary Care Provider [phone] [facility],non-owned Affiliates and Associated Physician Practices is amultiple site organization consisting of ambulatory clinics and hospital sitesin [place], [place], [place] and [place]. This disclosure is being madepursuant to the Care Everywhere program and may not contain all information available regarding this patient. Last updated 18.[facility] Allergies * Garlic(Other) * Peppers(Other) * [...] 20 mg by mouth once daily * Chevak Oil * traMADol (ULTRAM) 50 MG tablet(Started [...] PM CDT Medical Devices Implanted Type Area Executive Admin Device Identifier Shelf Expiration Date Model / Serial / Lot Screw 1.55mm 2.65mm 4mm Mdfc Slf Drl Implanted:Qty: 1 on 12/30/2018 by Mitzy Berkowitz MD at [facility] Right: Orbit Synthes Maxillofacial .224 .01 / / Screw 1.55mm 2.65mm 4mm Mdangelia Slf Drl Implanted:Qty: 1 on 12/30/2018 by Mitzy Berkowitz MD at [facility] Right: Orbit [employer]ynthes Maxillofacial .224 .01 / / Plate 3d Sm .4mm Preform Contr Edg Seg Implanted:Qty: 1 on 12/30/2018 by Mitzy Berkowitz MD at [facility] Right: Orbit [employer]ynthe[employer] Maxillofacial .811 / / Explanted Type Area Executive Admin Device Identifier Shelf Expiration Date Model / Serial / Lot Impl Orbt Suprafoil Nyl [id number].[id number] Explanted:Qty: 1 on 12/30/2018 by Mitzy Berkowitz MD at [facility] Right: Eye S [employer] 08/30/2020 -SS-035 / / [id number] Procedures * [place] LIVER ELASTOGRAPHY(Performed 03/30/2024) Performed for Nonalcoholic fatty [...] Closed fracture of right orbit, initial encounter ([facility]) * GLUCOSE - POINT OF CARE(Performed 12/30/2018) [...] patients with nonalcoholic fatty liver disease. Gastroenterology 2019;156:2368-6346. Prema MS, Mercy R, Van Natta ML, [...] at-risk nonalcoholic steatohepatitis (SANCHEZ) in a [place] cohort and comparison to other non-invasive algorithms. PLoS ONE (2021) 17: [id number]. Torito FERRER, Lv J, Jolie MORALES, et al. Enhanced diagnosis of advanced fibrosis and cirrhosis in individuals with NAFLD using FibroScan-based Agile scores. J Hepatol (2022) 78: 247-259. Fibroscan LSM can also be used with laboratory parameters without formulas to assess prognosis. According to the Baveno-VII criteria (Collado, 2021), Fibroscan LSM ?15 kPa plus a platelet count of ?690y611/L rules out clinically significant portal hypertension (sensitivity [...] FIB-4 score (Joanna et al. Hepatology Communications 2019;3:2851-2194) or NAFLD Fibrosis score (Portillo et al. Clinical Gastroenterology and Hepatology 2019;17:4615-3659 using routine clinical data. Note: 1. Fibroscan [...] additional interpretive data was last updated 12/29/22.) [email or web address] Physician None PROCEDURE/MINOR SURG ICAL ORDERABLES * DERMATOPATHOLOGY (06/22/2022 12:00 AM CDT) Only the most recent of3 resultswithin the time period is included. Case Report Dermatopathology Report Case: [id number] Authorizing Provider: Mercedez Castillo, Collected: 06/22/2022 12:00 AM BENJAMIN Ordering Location: [facility] DermPath Lab Received: 06/25/2022 10:24 AM Pathologist: [...] specimen consists of a shave biopsy measuring 2t7u4vs. Jar 0. 4:30 PM CDT DERMATOPATHOLOGY LABORATORY [...] characteristic determined by the Dermatopathology Laboratory at [facility], directed by Dr. Loyda Maria. These tests need not be, and therefore are not, approved by the [place] Food and Drug Administration. The tests are used for clinical purposes. Billing Codes Specimen Charges Stain Charges 88193 1 2 4:30 PM CDT DERMATOPATHOLOGY LABORATORY Embedded Images 2 4:30 PM CDT DERMATOPATHOLOGY LABORATORY Pathology/Cytolog y TISSUE SPECIMEN FROM SKIN / Unknown 06/22/2022 06/25/2022 10:24 AM CDT Mercedez Castillo PA-C LAB - PATHOL OGY/CYTOLOGY ORDERABLES DERMATOPATHOLOGY LABORATORY [facility] - Department of Dermatology [address], [address] Floor [address] [phone] * (ABNORMAL) C-REACTIVE PROTEIN (04/15/2019 3:41 PM CDT) Only the most recent of12 resultswithin the time period is included. C-Reactive Protein 0.78(H) <=0.50 mg/dL [facility] INSURANCE BILL Blood BLOOD SPECIMEN / Unknown 04/15/2019 3:41 PM CDT 04/15/2019 Narrative Resulting Agency Comment Lab Testing performed at: [place] [address] [address] [phone] Danny Pink MD LAB - CHEMISTRY ORD ERABLES [facility] INSURANCE BILL [address] [place] [address] * (ABNORMAL) ERYTHROCYTE SEDIMENTATION RATE (04/15/2019 3:41 PM CDT) Only the most recent of10 resultswithin the time period is included. Erythrocyte Sedimentation Rate Westergren 28(H) 0 - 20 MM/HR [facility] INSURANCE BILL Blood BLOOD SPECIMEN / Unknown 04/15/2019 3:41 PM CDT 04/15/2019 Narrative Resulting Agency Comment Lab Testing performed at: Counts include 234 beds at the [facility] [address] [phone] Danny Pink MD LAB - HEMATOLOGY OR DERABLES [facility] INSURANCE BILL [address] [place] [address] * (ABNORMAL) CBC WITH DIFFERENTIAL (04/15/2019 3:41 [...] Resulting Agency Comment Lab Testing performed at: Counts include 234 beds at the [facility] [address] [place] [phone] Danny Pink MD LAB - HEMATOLOGY OR DERABLES [facility] INSURANCE BILL [address] [place] [address] * (ABNORMAL) COMPREHENSIVE METABOLIC PANEL (04/15/2019 3:41 [...] Resulting Agency Comment Lab Testing performed at: Counts include 234 beds at the [facility] [address] [place] [phone] Danny Pink MD LAB - CHEMISTRY ORD ERABLES [facility] INSURANCE BILL [address] [place] [address] * EYE EXAM (01/28/2019 11:50 AM CDT) Anatomical Region Laterality Modality Other Narrative 01/28/2019 11:50 AM CDT Ordered by an unspecified provider. Scanned Document SCANNING ONLY * (ABNORMAL) GLUCOSE - POINT OF CARE (01/02/2019 5:44 PM CDT) Only the most recent of17 resultswithin the time period is included. Glucose WB/POC 229(H) 70 - 115 mg/dL 01/02/2019 5:51 PM CDT [facility] Specimen Type Arterial/C apillary 01/02/2019 5:51 PM CDT [facility] Blood BLOOD SPECIMEN / Unknown 01/02/2019 5:44 PM CDT 01/02/2019 5:51 PM CDT Narrative [facility] - 01/02/2019 5:51 PM CDT [employer] SALES LEADER: AYAAN RUBIN Giovani Nascimento MD LAB - POINT OF CARE ORDERABLES [address] [phone] * (ABNORMAL) HEMOGLOBIN A1C (12/31/2018 9:21 AM CDT) Only the most recent of2 resultswithin the time period is included. Hemoglobin A1c 13.2(H) 4.4 - 6.3 % 12/31/2018 2:05 PM CDT [facility] Estimated Average Glucose 332 mg/dL 12/31/2018 2:05 PM CDT [facility] Comment: HbA1c Interpretation: Treatment target values recommended by ADA and other clinical organizations should be used to evaluate metabolic control in patients. Treatment Target Values: Normal : < 5.7% Pre-diabetes: 5.7-6.4% Diabetes: Equal to or greater than 6.5% Reference: [place] Diabetes Association Standards of Care in Diabetes -2014 In patients 70 years and older consider HbA1c target range of 7.0-7.5% Reference: Diabetes Mellitus in Older People: Position Statement on behalf of the International Association of Gerontology and Geriatrics (IAGG), the Diabetes Working Alliance Party for Older People (EDWPOP), and the International Task Force of Experts in Diabetes. Benito Diop et al. J [place] [employer] Association. 2012 Test results diagnostic of diabetes should be repeated for confirmation. The Sebia Capillary 2 assay for the measurement of HbA1c is a National Glycohemoglobin Standardization Program (NGSP)certified method. Blood BLOOD SPECIMEN / Unknown Lab Venipuncture / Unknown 12/31/2018 9:21 AM CDT 12/31/2018 9:37 AM CDT Evelyne Grier APRN-HAZARDOUS MATERIALS ANALYST LAB - CHEMISTRY ORDERABLES Performing Organization Address City/State/[facility] Co de Phone Number [address] [phone] * (ABNORMAL) BASIC METABOLIC PANEL (CALCIUM TOTAL) (12/31/2018 3:59 AM CDT) Only the most recent of2 resultswithin the time period is included. BUN 13 7 - 26 mg/dL 12/31/2018 4:21 AM [facility] Creatinine 1.0 0.6 - 1.2 mg/dL 12/31/2018 4:21 AM [facility] Sodium 138 136 - 145 mmol/L 12/31/2018 4:21 AM [facility] Potassium 3.3(L) 3.5 - 4.5 mmol/L 12/31/2018 4:21 AM [facility] Chloride 97(L) 98 - 107 mmol/L 12/31/2018 4:21 AM [facility] CO2 31(H) 22 - 29 mmol/L 12/31/2018 4:21 AM [facility] Glucose 245(H) 70 - 115 mg/dL 12/31/2018 4:21 AM CDT [facility] Calcium 9.1 8.4 - 10.2 mg/dL 12/31/2018 4:21 AM CDT [facility] Anion Gap 13 8 - 18 12/31/2018 4:21 AM CDT [facility] BUN/Creatinine Ratio 13 7 - 23 12/31/2018 4:21 AM CDT [facility] Osmolality Calculated 294 270 - 300 mOsm/kg 12/31/2018 4:21 AM CDT [facility] eGFR >60 >60 mL/min/1.7 3 m2 12/31/2018 4:21 AM CDT [facility] Blood BLOOD SPECIMEN / Unknown Lab Venipuncture / Unknown 12/31/2018 3:59 AM CDT 12/31/2018 4:02 AM CDT Matty Durham III, MD LAB - CHEMISTR Y ORDERABLES [address] [phone] * XR CLAVICLE RIGHT 2VW (12/30/2018 11:55 AM CDT) Anatomical Region Laterality Modality Upper Extremity, Chest Radiograp hic Imaging 12/30/2018 11:5 8 AM CDT Impressions 12/30/2018 12:23 PM CDT FINDINGS/IMPRESSION: The right clavicle appears intact, without evidence of fracture or dislocation. Mild degenerative changes are seen at the AC joint. Dictated by Carly Hwang MD (vice president payer). I, Dr. KAYLEE ROSALES M.D. have personally [...] AC joint. Dictated by Carly Hwang MD (vice president payer). I, Dr. KAYLEE ROSALES M.D. have personally reviewed and interpreted this examination/study. This report was electronically signed by KAYLEE ROSALES M.D. on 12/30/2018 12:23 PM . Vanessa Ovalle MD DIAGNOSTIC IMAGING O RDERABLES * (ABNORMAL) URINALYSIS W/MICROSCOPIC NO CULTURE (12/30/2018 10:08 AM [facility]) Color UA Straw Straw, Yellow, Colorless 12/30/2018 10:25 AM [facility] Clarity UA Clear Clear, t Cloudy 12/30/2018 10:25 AM [facility] Specific Ovid UA 1.022 1.005 - 1.030 12/30/2018 10:25 AM [facility] pH UA 7.0 5.0 - 8.0 pH 12/30/2018 10:25 AM [facility] Protein UA Negative Negative mg/dL 12/30/2018 10:25 AM [facility] Glucose UA 3+(A) Negative mg/dL 12/30/2018 10:25 AM [facility] Ketone UA Trace(A) Negative mg/dL 12/30/2018 10:25 AM [facility] Bilirubin UA Negative Negative mg/dL 12/30/2018 10:25 AM [facility] Blood UA Negative Negative 12/30/2018 10:25 AM [facility] Nitrite UA Negative Negative 12/30/2018 10:25 AM [facility] Leukocyte Esterase Negative Negative 12/30/2018 10:25 AM [facility] Urobilinogen UA Negative Negative mg/dL 12/30/2018 10:25 AM [facility] RBC UA 0-2 None Seen, 0-2, 3-5 /HPF 12/30/2018 10:25 AM [facility] WBC UA 0-5 None Seen, 0-5 /HPF 12/30/2018 10:25 AM [facility] Squamous Epithelial Cells UA None Seen None Seen, 0-2 /HPF 12/30/2018 10:25 AM [facility] Urine URINE SPECIMEN OBTAINED BY CLEAN CATCH PROCEDURE / Unknown Collection / Unknown 12/30/2018 10:08 AM CDT 12/30/2018 10:15 AM CDT Ivonne Faustin MD LAB - URINALYSIS ORD ERABLES [facility] [address] [place] [address] * DRUG SCREEN TOX URINE PANEL (12/30/2018 10:08 AM T) [facility] Amphetamines Screen Urine Negative Negative: < 1000 ng/mL 12/30/2018 10:31 AM [facility] Barbiturates Screen Urine Negative Negative: < 200 ng/mL 12/30/2018 10:31 AM [facility] Benzodiazepine Screen Urine Negative Negative: < 200 ng/mL 12/30/2018 10:31 AM [facility] Opiates Urine Negative Negative: < 300 ng/mL 12/30/2018 10:31 AM [facility] Cocaine Metabolites Urine Negative Negative: < 300 ng/mL 12/30/2018 10:31 AM [facility] Phencyclidine Screen Urine Negative Negative: < 25 ng/ml 12/30/2018 10:31 AM [facility] Cannabinoids Screen Urine Negative Negative: <50 ng/mL 12/30/2018 10:31 AM [facility] Methadone Screen Urine Negative Negative: < 300 ng/mL 12/30/2018 10:31 AM [facility] Urine URINE / Unknown Collection / Unknown 12/30/2018 10:08 AM CDT 12/30/2018 10:15 AM CDT Narrative [facility] - 12/30/2018 10:31 AM [facility] The Urine Toxicology Screening Panel does not screen for Propoxyphene, Meprobamate, Carisoprodol, Trazodone, mdyw-ztc-qigflbg medications and/or volatiles (Acetone, Isopropanol, Methanol or Ethylene Glycol). Ethanol, Salicylate, Acetaminophen, Tricyclic Antidepressants and several therapeutic drugs may be individually assayed in serum or plasma specimen. Toxicology testing by the [facility] is an aid to medical diagnosis and treatment of patients. No documented chain of custody was maintained. Results are intended to be used for clinical purposes only. Ivonne Faustin MD LAB - URINE CHEMISTR Y ORDERABLES [facility] [address] [place] [address], [facility] [phone] * CT CHEST ABDOMEN PELVIS W CONT [...] at 10:41. Dictated by Tunde Delatorre MD (vice president payer). I, Dr. Randy LOZA M.D. have personally [...] at 10:41. Dictated by Tunde Delatorre MD (vice president payer). I, Dr. Randy LOZA M.D. have personally [...] carpometacarpal joint. Dictated by Linda Moscoso MD (vice president payer). Dr. KAYLEE Turk M.D. have personally reviewed [...] carpometacarpal joint. Dictated by Linda Moscoso MD (vice president payer). Dr. KAYLEE Turk M.D. have personally reviewed [...] dislocation identified. Dictated by Linda Moscoso MD (vice president payer). Dr. KAYLEE Turk M.D. have personally reviewed [...] dislocation identified. Dictated by Linda Moscoso MD (vice president payer). Dr. KAYLEE Turk M.D. have personally reviewed [...] is intact. Dictated by Linda Moscoso MD (vice president payer). Dr. KAYLEE Turk M.D. have personally reviewed [...] visiblebony thorax is intact. Dictated by Linda Moscsoo MD (vice president payer). Dr. KAYLEE Turk M.D. have personally reviewed and interpreted this examination/study. This report was electronically signed by KAYLEE ROSALES M.D. on 12/30/2018 9:53 AM . Ivonne Faustin MD DIAGNOSTIC IMAGING O RDERABLES * PT-INR [facility] (12/30/2018 9:32 AM CDT) PT 12.4 12.1 - 14.8 Seconds 12/30/2018 9:59 AM CDT [facility] INR 1.0 See Comment 12/30/2018 9:59 AM CDT [facility] Comment: The suggested therapeutic range for standard coumadin (warfarin) therapy is an INR of 2.0-3.0. For high-risk patients (Mechanical Mitral Valve Prosthesis, etc.), the suggested prophylactic therapeutic range is an INR of 2.5-3.5. Blood BLOOD SPECIMEN / Unknown Venipuncture / Unknown 12/30/2018 9:32 AM CDT 12/30/2018 9:40 AM CDT Ivonne Faustin MD LAB - COAGULATION OR DERABLES Performing Organization Address [facility]/ZIP Co de Phone Number [address] [phone] * TYPE + SCREEN PANEL (12/30/2018 9:32 AM CDT) Antibody Screen NEG 9 10:37 AM CDT [facility] ABO Rh O POS 12/30/2018 10:37 AM CDT [facility] Blood Bank BLOOD SPECIMEN / Unknown Venipuncture / Unknown 12/30/2018 9:32 AM CDT 12/30/2018 9:52 AM CDT Ivonne Faustin MD LAB - BLOOD BANK ORD ERABLES Performing Organization Address [facility] Co de Phone Number [facility] [address] [place] [address] * LIPASE BLOOD (12/30/2018 9:32 AM CDT) Lipase 50 8 - 78 Units/L 12/30/2018 10:03 AM CDT [facility] Blood BLOOD SPECIMEN / Unknown Venipuncture / Unknown 12/30/2018 9:32 AM CDT 12/30/2018 9:40 AM CDT Ivonne Faustin MD LAB - CHEMISTRY ORDE RABLES Performing Organization Address [facility] Co de Phone Number [address] [phone] * AMYLASE BLOOD (12/30/2018 9:32 AM CDT) Amylase 66 25 - 125 Units/L 12/30/2018 10:04 AM CDT [facility] Blood BLOOD SPECIMEN / Unknown Venipuncture / Unknown 12/30/2018 9:32 AM CDT 12/30/2018 9:40 AM CDT Ivonne Faustin MD LAB - CHEMISTRY KING MENDIETA Performing Organization Address [facility] Co de Phone Number [address] [phone] * ALCOHOL ETHYL BLOOD (12/30/2018 9:32 AM CDT) Interpretation Ethanol None Detected None Detected mg/dL 12/30/2018 10:04 AM CDT [facility] Comment: Ethanol levels less than 10 mg/dL are resulted as None detected . Blood BLOOD SPECIMEN / Unknown Venipuncture / Unknown 12/30/2018 9:32 AM CDT 12/30/2018 9:40 AM CDT Ivonne Faustin MD LAB - CHEMISTRY KING MENDIETA Performing Organization Address [facility] Co de Phone Number [address] [phone] * US ABDOMEN LIMITED (04/03/2018) Anatomical Region [...] with a HCV Nucleic Acid Amplification test (049399). Blood BLOOD SPECIMEN / Unknown 03/14/2018 10:40 AM CDT 03/14/2018 Narrative Resulting Agency Comment [facility] [place] [address] [facility] [phone] Danny Pink MD LAB - CHEMISTRY ORD ERABLES [facility] INSURANCE BILL [address] [place] [address] * LYME DISEASE IGG/IGM PANEL WB/IMMUNOBLOT (05/22/2017 [...] are those recommended by CDC/ASTPHLD. p23=Osp C, p67=mmoaepusq . Note: Sera from individuals with the following may cross react in the Lyme Western Blot assays: other spirochetal diseases (periodontal disease, leptospirosis, relapsing fever, yaws, and pinta); connective autoimmune (Rheumatoid Arthritis and Systemic Lupus Erythematosus and also individuals with Antinuclear Antibody); other infections (Arnett Spotted Fever; Harinder-Olson Virus, and Cytomegalovirus). . Blood BLOOD SPECIMEN / Unknown 05/22/2017 2:31 PM CDT 05/22/2017 Narrative Resulting Agency Comment [facility] [address] [phone] Danny Pink MD LAB - SEROLOGY ORDE RABLES Performing Organization Address [facility] Co de Phone Number [facility] INSURANCE BILL [address] [place] [address] * ALEJANDRO STAINING PATTERNS REFLEXED (05/22/2017 2:30 PM CDT) Speckled Pattern 1:40 [facility] INSURANCE BILL Comment:REFERENCE RANGE: Neg ative, <1:40, 1:40, 1:80 05/22/2017 2:30 PM CDT 05/22/2017 Narrative Resulting Agency Comment [address] [phone] Danny Pink MD LAB - PATHOLOGY/CYT OLOGY ORDERABLES Performing Organization Address [facility] Co de Phone Number [facility] INSURANCE BILL [address] [place] [address] * (ABNORMAL) CHICA BLOOD SCREEN W/REFLEX TITER (05/22/2017 2:30 PM CDT) CHICA Positive(A) Negative [facility] INSURANCE BILL Blood BLOOD SPECIMEN / Unknown 05/22/2017 2:30 PM CDT 05/22/2017 Narrative Resulting Agency Comment [address] [phone] Danny Pink MD LAB - CHEMISTRY ORD ERABLES Performing Organization Address [facility] Co de Phone Number [facility] INSURANCE BILL [address] [place] [address] * (ABNORMAL) SS-A/SS-B (SJOGRENS) ANTIBODY PANEL (05/22/2017 2:30 PM CDT) Sjogren's Antibodies (SSA) <0.2 0.0 - 0.9 AI [facility] INSURANCE BILL Sjogren's Antibodies (SSB) 3.7(H) 0.0 - 0.9 AI [facility] INSURANCE BILL Blood BLOOD SPECIMEN / Unknown 05/22/2017 2:30 PM CDT 05/22/2017 Narrative Resulting Agency Comment [facility] [place] [address] [facility] [phone] Danny Pink MD LAB - CHEMISTRY ORD ERABLES [facility] INSURANCE BILL [address] [place] [address] * CK BLOOD (05/22/2017 2:30 PM CDT) CK 81 35 - 232 U/L [facility] INSURANCE BILL Blood BLOOD SPECIMEN / Unknown 05/22/2017 2:30 PM CDT 05/22/2017 Narrative Resulting Agency Comment [facility] [place] [address] [place] [phone] Danny Pink MD LAB - CHEMISTRY ORD ERABLES [facility] INSURANCE BILL [address] [place] [address] Care Teams Digital Operations Analyst Relationship Specialty Start Date End Date Rodolfo Topete MD [address] [place], [place] [phone] PCP - General Internal Medicine 12/30/18 Danny Pink MD Rheumatology 04/10/18
== END 2024-10-18 21:52 | disposition left against medical advice (07) ==
LOC: ANHED 20:41
PROVIDERS: Emergency Medicine; Emergency Provider Physician Assistant; PCP Internal Medicine
DX: R07.9 Chest pain, unspecified (principal); Z79.4 Long term (current) use of insulin
CPT/HCPCS: 36415; 71046; 80053; 83690; 84484; 85025; 85055; 85610; 85730; 93005; 99284

== ENCOUNTER 2024-12-08 13:34 | Outpatient (CLI) | payer MEDICARE, SELFPAY ==
--- NOTE | ~2024-12-08 | CT_ITS ---
CT Scan of the Chest without Contrast: Clinical Indication: Pulmonary nodule Technique: Contiguous sections were acquired throughout the chest without intravenous contrast. Dose reduction technique was used on this scan by utilizing automated exposure control and iterative recon struction technique. The dose-length product (DLP) was 214.95 mGy-cm. COMPARISON: 05/29/2024 Findings: There is no evidence of any significant mediastinal, hilar or axillary lymphadenopathy. Coronary kassy ry calcifications are present. There is no evidence of pleural or pericardial effusion. Stable 7 mm medial right upper lobe nodule (axial image 38). 3 mm right lower lobe nodule unchanged ( axial image 69). Stable 9 mm right basilar pulmonary nodule (axial image 95). Images through the upper abdomen reveal small calcified gallstone. Impression: Stable pulmonary nodules, as above. Reviewed, dictated and finalized at [facility]. Impression: Stable pulmonary nodules, as above.
--- OUTSIDE RECORDS SUMMARY | 2024-12-08 14:37 | XMS_ITS | Clinical Summary ---
Author Organization [facility] Address [address] [place] [address] Care Team Providers Care Personal Carer Name Role Phone Rodolfo Topete MD Primary Care Provider [phone] Allergies Active Allergy Reactions Criticality Noted Date [...] needed. 05/23/2024 Active Lancets (ONETOUCH DELICA PLUS [id number]) [facility] USE TO CHECK BLOOD SUGAR EVERY DAY [...] liver 03/01/2023 Essential hypertension 03/30/2022 Diabetic neuropathy ([facility]) 06/24/2020 Obstructive sleep apnea syndrome 04/15/2019 Uncontrolled type 2 diabetes mellitus with hyperglycemia ([facility]) 12/31/2018 Pure hypercholesterolemia 06/20/2018 Rheumatoid arthritis involvi ng multiple sites ([facility]) 05/22/2017 Family History Medical History Relation Comments [...] Comments Blood Pressure 153/88 07/03/2024 8:06 AM CELL TESTER Pulse 69 07/03/2024 8:06 AM CELL TESTER Temperature 36.1 C (96.9 F) 07/03/2024 7:50 AM CELL TESTER Respiratory Rate 18 06/19/2024 3:00 PM CDT Oxygen Saturation 97% 07/03/2024 7:50 AM CELL TESTER Inhaled Oxygen Concentration - - Weight 99.2 kg (218 lb 9.6 oz) 07/03/2024 7:50 A M CELL TESTER Height 180.3 cm (5' 11 ) 07/03/2024 7:50 AM CELL TESTER Body Mass Index 30.49 07/03/2024 7:50 AM CELL TESTER Plan of Treatment Health Maintenance Due Date Last Done Comments Colorectal Cancer Screening Colonoscopy (10 Years) 1950 Kidney Health Evaluation 1950 Lipid Panel 1950 Pneumococcal Vaccine: 50+ Years (1 of 2 - PCV) 1956 DTaP, Tdap and Td Vaccines (1 - Tdap) 1969 Zoster Vaccines (1 of 2) 2000 RSV Immunization or 60+ Years (1 - Risk 60-74 years 1-dose series) 2010 Annual Medicare Wellness Visit 2015 Hemoglobin A1C 07/03/2019 12/31/2018, 12/31/2018 Diabetes: Retinopathy Eye Exam 01/28/2021 01/28/2019 COVID-19 Vaccine ( season) 2024 09/20/2021, 09/20/2021, 09/24/2020, Additional history exists PHQ-2 (Physician [place]) 08/26/2024 06/02/2024 Hepatitis C Completed 03/14/2018 Meningococcal B Vaccine Aged Out No l onger eligible based on patient's age to complete this topic Meningococcal Vaccine Aged Out No kylah parvez eligible based on patient's age to complete this topic RSV Immunizations Under 20 Months Aged Out No longer eligible based on patient's age to complete this topic Insurance MED REPLACE [facility] MEDICARE Care Teams Personal Carer Relationship Specialty Start Date End Date Rodolfo Topete MD [address] [address] PCP - General INTERNAL MEDICINE 07/03/24
--- OUTSIDE RECORDS SUMMARY | 2024-12-08 14:37 | XMS_ITS | Clinical Summary ---
Author Organization [facility] Address [address] [place] [address] Care Team Providers Care Child Guidance Counselor Name Role Phone Danny Pink MD Unavailable Rodolfo Topete MD Primary Care Provider [phone] Source Comments [facility],non-owned Affiliates and Associated Physician Practices is amultiple site organization consisting of ambulatory clinics and hospital sitesin [place], [place], [place] and [place]. This disclosure is being madepursuant to the Care Everywhere program and may not contain all information available regarding this patient. Last updated 18.[facility] Allergies Active Allergy Reactions Criticality Noted Date Comments Garlic Other 12/31/2018 Acid reflex Peppers Other 12/31/2018 ACID REFLEX. Onion Other 12/31/2018 ACID REFLEX Penicillins 05/22/2017 [place] Other 12/31/2018 Acid reflex Medications * Be aware that medications may not be up to date on this document. Alwaysverify current medications with the patient. Cyanocobalamin (VITAMIN B 12 PO) Take 4 tablets by mouth Active MULTIPLE VITAMINS PO Take 1 tablet by mouth once daily Active gabapentin (NEURONTIN) 300 MG capsule Take 1 capsule by mouth 2 times daily 60 capsule 5 9 Active acetaminophen (TYLENOL) 325 MG tablet Take 2 tablets by mouth every 4 hours as needed Maximum allowable Acetaminophen amount = 4 Grams (4000 mg) / 24 hours. 9 Active glimepiride (AMARYL) 2 MG tablet Take 2 mg by mouth daily with breakfast Active prochlorperazi ne (COMPAZINE) 10 MG tablet Take 10 mg by mouth every 8 hours as needed for Nausea/Vomiting Active metFORMIN (GLUCOPHAGE) 500 MG tablet Take 500 mg by mouth 2 times daily 9 Active pantoprazole EC (PROTONIX) 20 MG tablet Take 20 mg by mouth once daily 9 Active [place] Oil Active traMADol (ULTRAM) 50 MG tablet Take 1 tablet by mouth every 6 hours as needed 30 tablet 9 Active folic acid (FOLVITE) 1 MG tablet Take 1 tablet by mouth once daily 90 tablet 4 9 Active methotrexate 2.5 MG tablet Take 4 tablets by mouth every 7 days 16 tablet 9 Active methotrexate 2.5 MG tablet TAKE 4 TABLETS BY MOUTH EVERY 7 DAYS 16 tablet 9 Active Active Problems Problem Noted Date Diagnosed [...] Assigned at Male 03/30/2024 6:43 PM CDT 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 Gender Identity Male 03/30/2024 6:43 PM CDT [...] 01/28/2019, 12/30/2018 COVID-19 VACCINE ( season) 2024 DEPRESSION SCREENING 08/26/2024 DIABETES - URINE PROTEIN SCREENING 08/26/2024 MEDICARE AWV CALENDAR YEAR 2024 INFLUENZA VACCINE (Season Ended) 2025 HEPATITIS C SCREENING Completed 03/14/2018 HEPATITIS B VACCINE Aged Out No longe r eligible based on patient's age to complete this topic HIB VACCINE Aged Out No longer eligi ble based on patient's age to complete this topic HPV VACCINE Aged Out No longer eligi ble based on patient's age to complete this topic MENINGOCOCCAL (Group B) VACCINE SHARED DECISION-MAKING Aged Out No longer eligible based on patient's age to complete this topic MENINGOCOCCAL GROUPS A/C/Y/W VACCINE Aged Out No longer eligible based on patient's age to complete this topic Medical Devices Implanted Type Area Housekeeper Supervisor Device Identifier Shelf Expiration Date Model / Serial / Lot Screw 1.55mm 2.65mm 4mm Mdfc Slf Drl Implanted:Qty: 1 on 12/30/2018 by Mitzy Berkowitz MD at [facility] Right: [employer] Maxillofacial 224 .01 / / Screw 1.55mm 2.65mm 4mm Mdfc Slf Drl Implanted:Qty: 1 on 12/30/2018 by iMtzy Berkowitz MD at [facility] Right: [employer] Maxillofacial .224 .01 / / Plate 3d Sm .4mm Preform Contr Edg Seg Implanted:Qty: 1 on 12/30/2018 by Mitzy Berkowitz MD at [facility] Right: [employer] Maxillofacial .811 / / Explanted Type Area Housekeeper Supervisor Device Identifier Shelf Expiration Date Model / Serial / Lot Impl Orbt Suprafoil Nyl [id number] Explanted:Qty: 1 on 12/30/2018 by Mitzy Berkowitz MD at [facility] Right: Eye S [employer] 08/30/2020 [facility]-035 / / [id number] Procedures Procedure Name Priority Date/Time Associated Diagnosis [...] Resulting Agency Comment Lab Testing performed at: [address] [place] [id number] [place] Danny Pink MD LAB - CHEMISTRY ORDERABLES Final Result [facility] INSURANCE BILL [address] [place] [address] * EYE EXAM (01/28/2019 11:50 AM CDT) Anatomical Region Laterality Modality Other Narrative 01/28/2019 11:50 AM CDT Ordered by an unspecified provider. us Scanned Document SCANNING ONLY Final Result * (ABNORMAL) HEMOGLOBIN A1C (12/31/2018 3:59 AM [...] Equal to or greater than 6.5% Reference: [place] Diabetes Association Standards of Care in Diabetes -2014 In patients 70 years and older consider HbA1c target range of 7.0-7.5% Reference: Diabetes Mellitus in Older People: Position Statement on behalf of the International Association of Gerontology and Geriatrics (IAGG), the Diabetes Working Constitution Party for Older People (EDWPOP), and the International Task Force of Experts in Diabetes. Benito Diop et al. J [place] Medical Directors Association. 2012 Test results diagnostic of diabetes should be repeated for confirmation. The Sebia Capillary 2 assay for the measurement of HbA1c is a National Glycohemoglobin Standardization Program (NGSP)certified method. Blood BLOOD SPECIMEN / Unknown Lab Venipuncture / Unknown 12/31/2018 3:59 AM CDT 12/31/2018 4:02 AM CDT Vern Lipscomb MD LAB - CHEMISTRY ORDERABLES Fi nal Result [facility] [address] [phone] * HEPATITIS SCREEN ACUTE (03/14/2018 10:40 AM [...] with a HCV Nucleic Acid Amplification test ([id number]). Blood BLOOD SPECIMEN / Unknown 03/14/2018 10:40 AM CDT 03/14/2018 Narrative Resulting Agency Comment [facility] [address] [facility] [id number] Danny Pink MD LAB - CHEMISTRY ORDERABLES Final Result [facility] INSURANCE BILL [address] [place] [address] from Last 3 Months or Most Recently Relevant to Health Maintenance Insurance [facility] MEDICARE [facility] MANAGED MEDICARE ADV MEDICARE [facility] Member Subscriber Plan / Payer (Ef fective for All Dates) Name:Hunter Reid Member ID:Not on file Relation to Subscriber:Self Name:Hunter Reid Payer ID:[id number] (NAIC) Type:PPO Address: [address] MANAGED MEDICARE ADV [facility] C[facility] Member Subscriber Plan / Payer (Ef fective for All Dates) Name:Hunter Reid Member ID:Not on file Relation to Subscriber:Self Name:Hunter Reid Payer ID:[id number] (NAIC) Type:PPO Address: [place] [id number] [facility] MANAGED MEDICARE ADV [id number] [facility] Member Subscriber Plan / Payer (Ef fective for All Dates) Name:Hunter Reid Member ID:Not on file Relation to Subscriber:Self Name:Hunter Reid Payer ID:[id number] ([facility]) Type:[facility] Address: [place] [id number] [place] [id number] [employer] MANAGED MEDICARE ADV [place] [address] MEDICARE MEDICARE Member Subscriber Plan / Payer (Ef fective 2017-Present) Name:Hunter Reid Member ID:[id number] Relation to Subscriber:Self Name:HUNTER REID Subscriber ID:[id number] Payer ID:Not on file Group ID:Not on file Type:Medicare Address: [place] [id number] MEDICARE Member Subscriber Plan / Payer (Ef fective 2017-Present) Name:Hunter Reid Member ID:[id number] Relation to Subscriber:Self Name:HUNTER REID Subscriber ID:[id number] Payer ID:Not on file Group ID:Not on file Type:Medicare Address: [place] [id number] MEDICARE Member Subscriber Plan / Payer ( fective 2017-Present) Name:Hunter Reid Member ID:[id number] Relation to Subscriber:Self Name:HUNTER REID Subscriber ID:[id number] Payer ID:Not on file Group ID:Not on file Type:Medicare Address: [place] [id number] MEDICARE MEDICARE Member Subscriber Plan / Payer (Ef fective 2017-Present) Name:Hunter Reid Member ID:[id number] Relation to Subscriber:Self Name:HUNTER REID Subscriber ID:[id number] Payer ID:Not on file Group ID:Not on file Type:Medicare Address: [place] [phone] Advance Directives * Full Code (Latest Code Status on File) Date Activated Date Inactivated Comments 12/31/2018 3:19 AM 01/02/2019 7:51 PM * Full Code Date Activated Date Inactivated Comments 12/31/2018 12:09 AM 12/31/2018 3:19 AM * Full Code Date Activated Date Inactivated Comments 12/30/2018 11:59 PM 12/31/2018 12:09 AM Care Teams Child Guidance Counselor Relationship Specialty Start Date End Date Rodolfo Topete MD [address] [place] [phone] PCP - General Internal Medicine 12/30/18 Danny Pink MD Rheumatology 04/10/18
--- OUTSIDE RECORDS SUMMARY | 2024-12-08 14:37 | XMS_ITS | Referral Summary ---
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 Gender Identity Not on file Sexual Orientation Not on file Last Filed Vital Signs Vital Sign Reading Time Taken Comments Blood Pressure 118/76 07/22/2019 8:28 AM PATTERNMAKER HELPER Pulse 73 07/22/2019 8:28 AM PATTERNMAKER HELPER Temperature 36.1 C (97 F) 07/22/2019 8:28 AM PATTERNMAKER HELPER Respiratory Rate - - Oxygen Saturation 97% 07/22/2019 8:28 AM PATTERNMAKER HELPER Inhaled Oxygen Concentration - - Weight 95.3 kg (210 lb) 07/22/2019 8:28 AM PATTERNMAKER HELPER Height 182.9 cm (6') 07/22/2019 8:28 AM PATTERNMAKER HELPER Body Mass Index 28.48 07/22/2019 8:28 AM PATTERNMAKER HELPER Plan of Treatment Not on file Insurance MEDICARE [facility] HMO/PPO Address: [address] [address] [place] [address] Care Teams Rush Seater Relationship Specialty Start Date End Date Rodolfo Topete MD [address] [facility] [address] [address] PCP - General Internal Medicine 06/15/19
--- OUTSIDE RECORDS SUMMARY | 2024-12-08 14:37 | XMS_ITS | Clinical Summary ---
Author Organization 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 Gender Identity Not on file Sexual Orientation Not on file Obstetrics History Last Filed Vital Signs Vital Sign Reading Time Taken Comments Blood Pressure 118/76 07/22/2019 8:28 AM SENIOR STRUCTURAL ENGINEER Pulse 73 07/22/2019 8:28 AM SENIOR STRUCTURAL ENGINEER Temperature 36.1 C (97 F) 07/22/2019 8:28 AM SENIOR STRUCTURAL ENGINEER Respiratory Rate - - Oxygen Saturation 97% 07/22/2019 8:28 AM SENIOR STRUCTURAL ENGINEER Inhaled Oxygen Concentration - - Weight 95.3 kg (210 lb) 07/22/2019 8:28 AM SENIOR STRUCTURAL ENGINEER Height 182.9 cm (6') 07/22/2019 8:28 AM SENIOR STRUCTURAL ENGINEER Body Mass Index 28.48 07/22/2019 8:28 AM SENIOR STRUCTURAL ENGINEER Plan of Treatment Not on file Insurance MEDICARE [facility] Care Teams Primary Counselor Relationship Specialty Start Date End Date Rodolfo Topete MD [address] [facility] [address] [place] [address] PCP - General Internal Medicine 06/15/19
--- OUTSIDE RECORDS SUMMARY | 2024-12-08 14:38 | XMS_ITS | Clinical Summary ---
Author Organization [facility] Address [address] [place] [address] Phone Care Team Providers Care Slip Tender Name Role Phone Indira Max MD Primary Care Provider [phone] Horacio Perez MD Unavailable [phone] Allergies Active Allergy Reactions Criticality Noted Date [...] Comments Blood Pressure 124/70 07/06/2022 9:55 AM WOOD CARVER Pulse 75 07/06/2022 9:55 AM WOOD CARVER Temperature 36.7 C (98 F) 07/06/2022 9:55 AM WOOD CARVER Respiratory Rate 18 07/06/2022 9:55 AM WOOD CARVER Oxygen Saturation 97% 07/06/2022 9:55 AM WOOD CARVER Inhaled Oxygen Concentration - - Weight 98 kg (216 lb) 07/06/2022 9:55 AM WOOD CARVER Height 182.9 cm (6') 07/06/2022 9:55 AM WOOD CARVER Body Mass Index 29.29 07/06/2022 9:55 AM WOOD CARVER Plan of Treatment Health Maintenance Due Date [...] age to complete this topic Insurance MEDICARE [facility] Care Teams Slip Tender Relationship Specialty Start Date End Date Indira Max MD [address] [place] [address] PCP - General Neurology 06/08/22 Horacio Perez MD [address] [place] [phone] Consulting Physician Oncology 06/08/22
--- OUTSIDE RECORDS SUMMARY | 2024-12-08 14:38 | XMS_ITS | Encounter Summary ---
Author Organization [facility] Care Team Providers Care Cytogenetics Laboratory Manager Name Role Phone Rodolfo Topete MD Primary Care Provider Encounter Details Date Type Department Care Team (Latest Contact Info) Description 04/16/2018 Orders Only [facility] ProviderSuzie MD [address] [place] [id number] Social History Tobacco Use Types Packs/Day Years Used Date Smoking Tobacco: Never Assessed Sex and Gender Information Value Date Recorded Sex Assigned at Not on file Legal Sex Male 1:21 PM PATIENT ACCESS Gender Identity Not on file Sexual Orientation [...] on filedocumented in this encounter Care Teams Cytogenetics Laboratory Manager Relationship Specialty Start Date End Date Rodolfo Topete MD [address] [facility] [place] [address] PCP - General Internal Medicine 06/15/19 documented as of this encounter
--- OUTSIDE RECORDS SUMMARY | 2024-12-08 14:38 | XMS_ITS | Encounter Summary ---
Author Organization [facility] Address [address] [place] [address] Care Team Providers Care Tool Rental Technician Name Role Phone Danny Pink MD Unavailable [phone] Rodolfo Topete MD Primary Care Provider [phone] Encounter Details Date Type Department Care Team (Late st Contact Info) Description 12/30/2018 Ophth Exam [facility] [address] [place] [address] Salma Cast MD [address] [place] [address] Social History Tobacco Use Types Packs/Day Years Used Date Smoking Tobacco: Never Smokeless Tobacco: Never Sex and Gender Information Value Date Recorded Sex Assigned at Male 03/30/2024 6:43 PM CDT 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
--- OUTSIDE RECORDS SUMMARY | 2024-12-08 14:38 | XMS_ITS | Data Portability ---
Author Organization [facility] [employer], Main Office Address [address] [place] [address] Assessment No assessment recorded. Plan of Treatment Reminders Order Date Submit Date Provider Last Modified By Organization Details Last Modified Time Details Appointments None recorded. Lab lipid panel, serum 2024 025 [email or web address] [facility], [address], [place], [address], 5 09:39:16 CMP, serum or plasma 2024 025 [email or web address] [facility], [address], [place], [address], 5 09:39:16 unlisted lab - T4, free 2024 025 [email or web address] [facility], [address], [place], [address], 5 09:39:16 TSH, ultra-sens itive, serum 2024 025 [facility], [address], [place], [address], 5 09:39:16 HbA1c (hemoglobi n A1c), blood 2024 025 [facility], [address], [address], [place], [address], 5 09:39:17 CBC w/ auto diff 2024 025 [email or web address] [facility], [address], [place], [address], 5 09:39:16 lipid panel, serum 2023 024 [email or web address] [facility], [address], [place], [address], 4 16:46:11 CMP, serum or plasma 2023 024 [email or web address] [facility], [address], [place], [address], 4 16:46:11 HbA1c (hemoglobi n A1c), blood 2023 024 [email or web address] [facility], [address], [place], [address], 4 16:46:11 CBC w/ auto diff 2023 024 [email or web address] [facility], [address], [place], [address], 4 16:46:11 lipid panel, serum 2023 024 [email or web address] [facility], [address], [place], [address], 4 10:19:31 CMP, serum or plasma 2023 024 [email or web address] [facility], [address], [address], [place], [address], 4 10:19:31 TSH, serum or plasma 2023 024 [id number] [facility], [address], [place], [address], 4 10:19:31 T4, free, serum 2023 024 [email or web address] [facility], [address], [place], [address], 4 10:19:32 PSA, serum or plasma 2023 024 [email or web address] [facility], [address], [place], [address], 4 10:19:32 magnesium, serum or plasma 2023 024 [facility], [address], [address], [place], [address], 4 10:19:32 vitamin B12, serum 2023 024 [facility], [address], [address], [place], [address], 4 10:19:32 CBC w/ auto diff 2023 024 [email or web address] [facility], [address], [place], [address], 4 10:19:31 lipid panel, serum 2023 024 [email or web address] [facility], [address], [address], [place], [address], 4 17:45:50 CMP, serum or plasma 2023 024 [email or web address] [facility], [address], [address], [place], [address], 4 17:45:51 PSA, serum or plasma 2023 024 [email or web address] [facility], [address], [place], [address], 4 17:45:51 HbA1c (hemoglobi n A1c), blood 2023 024 [email or web address] [facility], [address], [place], [address], 4 17:45:51 albumin/cr eatinine, mass ratio, urine 2023 024 [email or web address] [facility], [address], [address], [place], [address], 4 17:45:51 CBC w/ auto diff 2023 024 [email or web address] [facility], [address], [address], [place], [address], 4 17:45:50 Referral None recorded. Procedures None recorded. Surgeries None recorded. Imaging None recorded. Medication Orders None recorded. Patient TargetsNo targets recorded. Patient Instructions Encounter Date Encounter Id Patient Instructions Last Modified By Organization Details Last Modified Time 10/18/2023 [id number] Hypertension -hyperlipidemia - type 2 diabetes and rheumatoid arthritis all clinically stable. Check blood work in the form of CBC, CMP, lipid, thyroid and PSA. Continue on current Rx follow-up in four months Portions of the record may have been created with voice recognition software. Occasional wrong-word or s ound-a-like substitutions may have occurred due to the inherent limitations of voice recognition software. Read the chart carefully and recognize, using context, where substitutions have occurred. [email or web address] Not available 10/18/2023 16:24:13 02/06/2024 [id number] Follow-up for hypertension, hyperlipidemia, type 2 diabetes and GERD all clinically stable. Check blood work consisting of CBC, CMP, lipid, thyroid, magnesium, B12 and PSA. Continue on current Rx and follow-up in four months Next Appointment: 4 Months Approximate Date: 06/05/2024 Portions of the record may have been created with voice recognition software. Occasional wrong-word or s ound-a-like substitutions may have occurred due to the inherent limitations of voice recognition software. Read the chart carefully and recognize, using context, where substitutions have occurred. [email or web address] Not available 02/06/2024 12:13:49 06/04/2024 [id number] Follow-up for hypertension, hyperlipidemia, type 2 diabetes, GERD as well as obesity class one. Check blood work consistent with a hemoglobin A1c, CMP, CBC, lipid panel. Continue on current Rx follow-up in four months Follow Up: 4 Months Approximate Date: 10/02/2024 Portions of the record may have been created with voice recognition software. Occasional wrong-word or s ound-a-like substitutions may have occurred due to the inherent limitations of voice recognition software. Read the chart carefully and recognize, using context, where substitutions have occurred. [email or web address] Not available 06/04/2024 16:48:26 10/08/2024 [id number] Follow-up esssandra ial hypertension, hyperlipidemia, type 2 diabetes, sleep [...] with voice recognition software. Occasional wrong-word or s ound-a-like substitutions may have occurred due to the inherent limitations of voice recognition software. Read the chart carefully and recognize, using context, where substitutions may have occurred. Created: Rodolfo Topete M.D. 10.08.2024 10:53 AM Not available 10/08/2024 11:53:18 10/21/2024 [id number] Atypical chest p ain secondary to muscle strain. Will continue with current medications see no reason for further evaluation or testing at this time. Instructed to let us know if there is no continued improvement or if there is any change in symptoms including shortness of breath but not limited to this or any other symptoms of might suggest the processes becoming more severe Keep Appointment: Sat 10:20 AM [place] Portions of record are template driven. When necessary additional context will be provided. Additionally some portions have been created with voice recognition software. Occasional wrong-word or s ound-a-like substitutions may have occurred due to the inherent limitations of voice recognition software. Read the chart carefully and recognize, using context, where substitutions may have occurred. Created: Rodolfo Topete M.D. 10.21.2024 04:12 PM Not available 10/21/2024 17:12:50 Reason for Referral None Reported. Results Created Date Observation Date Name Description Value Unit Range Abnormal Flag Note LastModifiedBy Organization Detail LastModifiedTime 10/23/1910/24/2024 CBC/D IFF AMBIG UOUS DEFAU LT WBC 6.0 x10e3 /uL 3.4-10 .8 normal Not Available [facility] ([facility]) [address] [place], [address], 10/24/2024 08:21:13 10/23/19 25 10/24/2024 CBC/D IFF AMBIG UOUS DEFAU LT RBC 4.07 x10e6 /uL 4.14-5 .80 below low normal Not Available [facility] ([facility]) [address] [place], [address], 10/24/2024 08:21:13 10/23/19 25 10/24/2024 CBC/D IFF AMBIG UOUS DEFAU LT hemoglobin 13.2 g/dL 13.0-1 7.7 normal Not Available [facility] ([facility]) [address] [place], [address], 10/24/2024 08:21:13 10/23/19 25 10/24/2024 CBC/D IFF AMBIG UOUS DEFAU LT hematocrit 38.7 % 37.5-5 1.0 normal Not Available [facility] ([facility]) [address] [place], [address], 10/24/2024 08:21:13 10/23/19 25 10/24/2024 CBC/D IFF AMBIG UOUS DEFAU LT MCV 95 fL 79-97 normal Not Available [facility] ([facility]) [address] [facility], [place], [address], 10/24/2024 08:21:13 10/23/19 25 10/24/2024 CBC/D IFF AMBIG UOUS DEFAU LT MCH 32.4 pg 26.6-3 3.0 normal Not Available [facility] ([facility]) [address] [facility], [place], [address], 10/24/2024 08:21:13 10/23/19 25 10/24/2024 CBC/D IFF AMBIG UOUS DEFAU LT MCHC 34.1 g/dL 31.5-3 5.7 normal Not Available [facility] ([facility]) [address] [facility], [place], [address], 10/24/2024 08:21:13 10/23/19 25 10/24/2024 CBC/D IFF AMBIG UOUS DEFAU LT RDW 13.3 % 11.6-1 5.4 Not Available [facility] ([facility]) [address] [facility], [place], [address], 10/24/2024 08:21:13 10/23/19 25 10/24/2024 CBC/D IFF AMBIG UOUS DEFAU LT platelets 107 x10e3 /uL 150-45 0 below low normal Not Available [facility] ([facility]) [address] [place], [address], 10/24/2024 08:21:13 10/23/19 25 10/24/2024 CBC/D IFF AMBIG UOUS DEFAU LT neutrophils 71 % not estab. normal Not Available [facility] ([facility]) [address] [place], [address], 10/24/2024 08:21:13 10/23/19 25 10/24/2024 CBC/D IFF AMBIG UOUS DEFAU LT lymphs 20 % not estab. normal Not Available [facility] ([facility]) [address] [place], [address], 10/24/2024 08:21:13 10/23/19 25 10/24/2024 CBC/D IFF AMBIG UOUS DEFAU LT monocytes 6 % not estab. normal Not Available [facility] ([facility]) [address] [facility], [place], [address], 10/24/2024 08:21:13 10/23/19 25 10/24/2024 CBC/D IFF AMBIG UOUS DEFAU LT eos 2 % not estab. normal Not Available [facility] ([facility]) [address] [place], [address], 10/24/2024 08:21:13 10/23/19 25 10/24/2024 CBC/D IFF AMBIG UOUS DEFAU LT basos 1 % not estab. normal Not Available [facility] ([facility]) [address] [place], [address], 10/24/2024 08:21:13 10/23/19 25 10/24/2024 CBC/D IFF AMBIG UOUS DEFAU LT immature cells ADOLESCENT COUNSELOR Not Available [facility] ([facility]) [address] [place], [address], 10/24/2024 08:21:13 10/23/19 25 10/24/2024 CBC/D IFF AMBIG UOUS DEFAU LT neutrophils (absolute) 4.2 x10e3 /uL 1.4-7. 0 normal Not Available [facility] ([facility]) [address] [place], [address], 10/24/2024 08:21:13 10/23/19 25 10/24/2024 CBC/D IFF AMBIG UOUS DEFAU LT lymphs (absolute) 1.2 x10e3 /uL 0.7-3. 1 normal Not Available [facility] ([facility]) [address] [place], [address], 10/24/2024 08:21:13 10/23/19 25 10/24/2024 CBC/D IFF AMBIG UOUS DEFAU LT monocytes(ab solute) 0.4 x10e3 /uL 0.1-0. 9 normal Not Available [facility] ([facility]) [address] [facility], [place], [address], 10/24/2024 08:21:13 10/23/19 25 10/24/2024 CBC/D IFF AMBIG UOUS DEFAU LT eos (absolute) 0.1 x10e3 /uL 0.0-0. 4 normal Not Available [facility] ([facility]) [address] [place], [address], 10/24/2024 08:21:13 10/23/19 25 10/24/2024 CBC/D IFF AMBIG UOUS DEFAU LT baso (absolute) 0.0 x10e3 /uL 0.0-0. 2 normal Not Available [facility] ([facility]) [address] [facility], [place], [address], 10/24/2024 08:21:13 10/23/19 25 10/24/2024 CBC/D IFF AMBIG UOUS DEFAU LT immature granulocytes 0 % not estab. Not Available [facility] ([facility]) [address] [place], [address], 10/24/2024 08:21:13 10/23/19 25 10/24/2024 CBC/D IFF AMBIG UOUS DEFAU LT immature grans (abs) 0.0 x10e3 /uL 0.0-0. 1 Not Available [facility] ([facility]) [address] [place], [address], 10/24/2024 08:21:13 10/23/19 25 10/24/2024 CBC/D IFF AMBIG UOUS DEFAU LT NRBC ADOLESCENT COUNSELOR Not Available [facility] ([facility]) [address] [place], [address], 10/24/2024 08:21:13 10/23/19 25 10/24/2024 CBC/D IFF SERGIO AGUILERA DEFAU LT hematology comments: ADOLESCENT COUNSELOR A hand- writt en panel /prof gaviria was recei kvng from your offic e. In accor dance with the [facility] Sergio aguilera Test Code Polic y dated February 2003, we have assig junie CBC with Diffe benito al/Pl aristeo t, Test Code #[address]. If this is not the testi ng you wishe d to recei ve on this speci men, pleas e conta ct the [facility] Clien t Inqui ry/ Techn ical Servi charles Depar tment to thomas fy the test order . We appre ciate your busin ess. Not Available [facility] ([facility]) [address] [place], [address], 10/24/2024 08:21:13 10/23/19 25 10/24/2024 COMP. METAB OLIC PANEL (14) glucose 102 mg/dL 70-99 above high normal Not Available [facility] ([facility]) [address] [place], [address], 10/24/2024 08:21:15 10/23/19 25 10/24/2024 COMP. METAB OLIC PANEL (14) BUN 11 mg/dL 8-27 normal Not Available [facility] ([facility]) [address] [place], [address], 10/24/2024 08:21:15 10/23/19 25 10/24/2024 COMP. METAB OLIC PANEL (14) creatinine 1.17 mg/dL 0.76-1 .27 normal Not Available [facility] ([facility]) [address] [place], [address], 10/24/2024 08:21:15 10/23/19 25 10/24/2024 COMP. METAB OLIC PANEL (14) eGFR 65 mL/mi n/1.7 3 >59 normal Not Available [facility] ([facility]) [address] [facility] [place], [address], 10/24/2024 08:21:15 10/23/19 25 10/24/2024 COMP. METAB OLIC PANEL (14) BUN/creatini ne ratio 9 10-24 below low normal Not Available [facility] ([facility]) [address] [facility] [place], [address], 10/24/2024 08:21:15 10/23/19 25 10/24/2024 COMP. METAB OLIC PANEL (14) sodium 143 mmol/ L 134-14 4 normal Not Available [facility] ([facility]) [address] [facility] [place], [address], 10/24/2024 08:21:15 10/23/19 25 10/24/2024 COMP. METAB OLIC PANEL (14) potassium 3.7 mmol/ L 3.5-5. 2 normal Not Available [facility] ([facility]) [address] [facility] [place], [address], 10/24/2024 08:21:15 10/23/19 25 10/24/2024 COMP. METAB OLIC PANEL (14) chloride 104 mmol/ L 96-106 normal Not Available [facility] ([facility]) [address] [facility] [place], [address], 10/24/2024 08:21:15 10/23/19 25 10/24/2024 COMP. METAB OLIC PANEL (14) carbon dioxide, total 24 mmol/ L 20-29 normal Not Available [facility] ([facility]) [address] [facility] [place], [address], 10/24/2024 08:21:15 10/23/19 25 10/24/2024 COMP. METAB OLIC PANEL (14) calcium 9.1 mg/dL 8.6-10 .2 normal Not Available [facility] ([facility]) [address] [place], [address], 10/24/2024 08:21:15 10/23/19 25 10/24/2024 COMP. METAB OLIC PANEL (14) protein, total 7.1 g/dL 6.0-8. 5 normal Not Available [facility] ([facility]) [address] [place], [address], 10/24/2024 08:21:15 10/23/19 25 10/24/2024 COMP. METAB OLIC PANEL (14) albumin 4.2 g/dL 3.8-4. 8 normal Not Available [facility] ([facility]) [address] [place], [address], 10/24/2024 08:21:15 10/23/19 25 10/24/2024 COMP. METAB OLIC PANEL (14) globulin, total 2.9 g/dL 1.5-4. 5 Not Available [facility] ([facility]) [address] [place], [address], 10/24/2024 08:21:15 10/23/19 25 10/24/2024 COMP. METAB OLIC PANEL (14) bilirubin, total 0.6 mg/dL 0.0-1. 2 normal Not Available [facility] ([facility]) [address] [place], [address], 10/24/2024 08:21:15 10/23/19 25 10/24/2024 COMP. METAB OLIC PANEL (14) alkaline phosphatase 144 IU/L 44-121 above high normal Not Available [facility] ([facility]) [address] [place], [address], 10/24/2024 08:21:15 10/23/19 25 10/24/2024 COMP. METAB OLIC PANEL (14) AST (SGOT) 29 IU/L 0-40 normal Not Available [facility] ([facility]) [address] [facility] [place], [address], 10/24/2024 08:21:15 10/23/19 25 10/24/2024 COMP. METAB OLIC PANEL (14) ALT (SGPT) 44 IU/L 0-44 normal Not Available [facility] ([facility]) [address] [facility] [place], [address], 10/24/2024 08:21:15 10/23/19 25 10/24/2024 LIPID PANEL cholesterol, total 117 mg/dL 100-19 9 normal Not Available [facility] ([facility]) [address] [place], [address], 10/24/2024 08:21:16 10/23/19 25 10/24/2024 LIPID PANEL triglyceride s 215 mg/dL 0-149 above high normal Not Available [facility] ([facility]) [address] [place], [address], 10/24/2024 08:21:16 10/23/19 25 10/24/2024 LIPID PANEL HDL cholesterol 29 mg/dL >39 below low normal Not Available [facility] ([facility]) [address] [place], [address], 10/24/2024 08:21:16 10/23/19 25 10/24/2024 LIPID PANEL VLDL cholesterol mireille 35 mg/dL 5-40 Not Available [facility] ([facility]) [address] [place], [address], 10/24/2024 08:21:16 10/23/19 25 10/24/2024 LIPID PANEL LDL chol calc ([facility]) 53 mg/dL 0-99 Not Available [facility] ([facility]) [address] [place], [address], 10/24/2024 08:21:16 10/23/19 25 10/24/2024 LIPID PANEL LDL calc comment: ADOLESCENT COUNSELOR Not Available [facility] ([facility]) [address] [facility], [place], [address], 10/24/2024 08:21:16 10/23/1910/24/2024 HEMOG LOBIN A1C hemoglobin A1C 8.2 % 4.8-5. 6 above high normal Predi abete s: 5.7 - 6.4 Diabe bryce: >6.4 Glyce lenka contr ol for adult s with diabe bryce: <7.0 Not Available [facility] ([facility]) [address] [place], [address], 10/24/2024 08:21:17 10/23/1910/24/2024 TSH TSH 5.320 uIU/m L 0.450- 4.500 above high normal Not Available [facility] ([facility]) [address] [place], [address], 10/24/2024 08:21:18 10/23/19 25 10/24/2024 T4, FREE T4,free(dire ct) 1.02 NG/dL 0.82-1 .77 normal Not Available [facility] ([facility]) [address] [place], [address], 10/24/2024 08:21:19 10/23/19 25 10/23/2024 SERGIO MAGDALENORE V CMP14 DEFAU LT esrgio abbbettyev CMP14 default COMMEN T A hand- writt en panel /prof khadra was recei kvng from your offic e. In accor dance with the [facility] Ambson uous Test Code Polic y dated February 2003, we have compl eted your order by using the close st curre ntly or forme rly recog nized AMA panel . We have assig junie Compr ehens william Metab olic Panel (14), Test Code #32[address]. If this is not the testi ng you wishe d to recei ve on this speci men, pleas e conta ct the [facility] Clien t Inqui ry/Te chnic al Servi charles Depar tment to thomas fy the test order . We appre ciate your busin ess. Not Available [facility] ([facility]) [address] [facility], [place], [address], 10/24/2024 08:21:20 10/23/19 25 10/23/2024 AMBIG ABBRE V LP DEFAU LT ambig abbrev LP default COMMEN T A hand- writt en panel /prof ile was recei kvng from your offic e. In accor dance with the [facility] Ambson uous Test Code Polic y dated February 2003, we have compl eted your order by using the close st curre ntly or forme rly recog nized AMA panel . We have assson zaman Lipid Panel , Test Code #3037 [address]. If this is not the testi ng you wishe d to recei ve on this speci men, pleas e conta ct the [facility] Clien t Inqui ry/Te chnic al Servi charles Depar tment to thomas fy the test order . We appre ciate your busin ess. Not Available [facility] ([facility]) [address] [facility], [place], [address], 10/24/2024 08:21:21 12/01/19 24 12/01/2023 XR, elbow , 2 view No observ ation record ed. [address], [address], 12/02/2023 06:55:48 12/01/19 24 12/01/2023 CT, abdom en + pelvi s, w/ contr ast No observ ation record ed. [address], [address], 12/02/2023 06:56:34 12/17/19 24 12/16/2023 CT, chest , w/o contr ast No observ ation record ed. [email or web address] [address], [address], 12/18/2023 15:08:09 05/29/20 24 05/29/2024 CT, chest , w/o contr ast No observ ation record ed. [email or web address] [facility] [address], [place], [address], 05/29/2024 13:28:13 10/18/19 25 10/18/2024 XR, chest No observ ation record ed. [facility] [address], [place], [address], 10/19/2024 16:37:09 Result Notes None recorded. Problems Name Problem SNOMED Code Status Onset Date Resolution Date Notes Provider Name and Address Organization Details Recorded Time Acute bronchitis 28414316 Active 2021 Not Available [facility] 4 05:07:49 Paronychia of toe of right foot 7422967835824 9102 Active 2020 Not Available [facility] 4 05:07:49 Avulsion of toenail of right foot 0564957481386 9102 Active 2020 Not Available [facility] 4 05:07:49 Insomnia 760728554 Active Not Available [facility] 4 05:07:49 Neuropathy due to diabetes mellitus 091940002 Active 2019 Not Available [facility] 4 05:07:49 Gastroesop hageal reflux disease 612534126 Active Not Available [facility] 4 05:07:49 Pure hyperchole sterolemia 314053806 Active 2017 Not Available [facility] 4 05:07:49 Subungual hematoma 048363479 Active 2020 Not Available [facility] 4 05:07:49 Low back pain 124566216 Active 2021 Not Available [facility] 4 05:07:49 Chest pain 01136674 Active Not Available [facility] 4 05:07:49 Type 2 diabetes mellitus without complicati on 628251765 Active 2018 Not Available [facility] 4 05:07:49 Subdural hemorrhage 17890218 Active 2018 Not Available [facility] 4 05:07:49 History of polyp of colon 306668978 Active Not Available [facility] 4 05:07:49 Uncontroll ed type 2 diabetes mellitus 995325710 Active 2018 Not Available [facility] 4 05:07:49 Essential hypertensi on 13562527 Active 2021 Not Available [facility] 4 05:07:49 Acute maxillary sinusitis 25611115 Active Not Available [facility] 4 05:07:49 Rheumatoid arthritis 83383291 Active 2017 Not Available [facility] 4 05:07:49 Sleep apnea 97065119 Active Not Available [facility] 4 05:07:49 Obstructiv e sleep apnea syndrome 79129191 Active 2018 Not Available [facility] 4 05:07:49 Neck pain 44683395 Active 2021 Not Available [facility] 4 05:07:49 Tinea pedis 6087432 Active 2022 Not Available [facility] 4 05:07:49 Steatosis of liver 269573502 Active 2022 Not Available [facility] 4 05:07:49 Nonalcohol ic steatohepa titis 767786048 Active 2022 Not Available [facility] 4 05:07:49 Acute sinusitis 84281259 Active 2022 Not Available [facility] 4 19:56:21 Disorder of prostate 88590591 Active 2023 Rodolfo Topete MD [address], [place], [address] , [email or web address] [facility] [employer] 4 16:24:07 Obese class I 9912176569203 07 Active 2023 Rodolfo Topete MD [address], [place], [address] , [email or web address] [facility] [employer] [facility] 4 16:48:02 Chest wall pain 324434058 Active 2024 Rodolfo Topete MD [address] [facility] [address], [place], [address] , [facility] [email or web address] [facility] 5 17:09:25 Problem Notes None recorded. Procedures Surgical History Date Name Laterality Status Provider Name and Address Organization Details Recorded Time 3 Medicare Wellness CPT Code, subsequent completed Kat Phelps RN [facility] [employer] [facility] 12/21/2022 15:36:33 3 Advanced Care Planning completed Kat Phelps RN [facility] [employer] [facility] 12/21/2022 15:38:14 Eye Surgery completed Not Available [facility] 10/24/2022 14:45:40 Imaging Results Imaging Date Name Status LastModified by Organiz ation Details LastModified Time 12/01/2023 XR, elbow, 2 view completed [address], [address], 12/02/2023 06:55:48 12/01/2023 CT, abdomen + pelvis, w/ contrast completed [address], [address], 12/02/2023 06:56:34 12/16/2023 CT, chest, w/o contrast completed [address], [address], 12/18/2023 15:08:09 05/29/2024 CT, chest, w/o contrast completed [address], [address], 05/29/2024 13:28:13 10/18/2024 XR, chest completed [address], [address], 10/19/2024 16:37:09 Procedure Notes None recorded. Medical Equipment None Reported. Allergies Allergen ID Allergen Name Allergen Category Reaction Reaction Severity Criticality Documentation Date Start Date Code Code System Note Provider Name and Address Organization Details Recorded Time 78876 Product containin g penicilli n (product) medicatio n anaphylax is severe Not available 10/24/20222016 04630 8001 SNOMED recei kvng from [place] son for tooth infec tion, went back to [place] with swell ing and was given a shot . Not Available [facility] 3 14:51:22 18139 metformin medicatio n diarrhea Not available [facility] 02/12/2023 6809 RxNorm Misti Ward, JANAK null, [place] [facility] [place] [employer] [facility] 3 14:04:46 Medications Name Sig Start Date Stop Date Status Note LastModified by Organization Details LastModified Time losartan 50 mg tablet TAKE 1 TABLET BY MOUTH EVERY DAY 2024 active Not Available Not Available Not Avai lable cyclobenzap rine 10 mg tablet TAKE 1 [...] TAKE 1 TABLET BY MOUTH TWICE DAILY active Not Available [...] Not Available Not Available Not Available Mounjaro 5 mg/0.5 mL subcutaneou s pen injector ADMINISTE R 5 MG UNDER THE SKIN EVERY WEEK 2024 active Not Available Not Available Not Avai lable Mounjaro 2.5 mg/0.5 mL subcutaneou s pen injector ADMINISTE R 2.5 MG UNDER THE SKIN 1 TIME WEEKLY FOR 4 WEEKS 11/02 completed Not Available Not Available Not Available Vitals Date Recorded Body height Body mass index (BMI) Body weight Heart rate Body temperature Oxygen saturation Oxygen saturation in Arterial blood by Pulse oximetry Systolic blood pressure Diastolic blood pressure Provider Name and Address Organization Details Last Updated DateTime 4 180.34 cm 29.8 kg/m2 84862.7 7 g 91 /min 97.5 [degF] 96 % 96 % 116 mm[Hg] 76 mm[Hg] IAM Caraballo [facility] [employer] [facility] 4 16:09:17 Date Recorded Body height Body mass index (BMI) Body weight Heart rate Body temperature Oxygen saturation Oxygen saturation in Arterial blood by Pulse oximetry Systolic blood pressure Diastolic blood pressure Provider Name and Address Organization Details Last Updated DateTime 4 180.34 cm 29.6 kg/m2 76801.5 8 g 77 /min 97.6 [degF] 97 % 97 % 120 mm[Hg] 64 mm[Hg] [facility]allo [facility] [place] [employer] [facility] 4 12:00:34 Date Recorded Body height Body weight Heart rate Body temperature Oxygen saturation Oxygen saturation in Arterial blood by Pulse oximetry Systolic blood pressure Diastolic blood pressure Provider Name and Address Organization Details Last Updated DateTime 4 180.34 cm 62795.1 4 g 89 /min 97 [degF] 97 % 97 % 130 mm[Hg] 72 mm[Hg] IAM Caraballo [employer] 4 16:33:11 Date Recorded Body height Body mass index (BMI) Body weight Heart rate Body temperature Oxygen saturation Oxygen saturation in Arterial blood by Pulse oximetry Systolic blood pressure Diastolic blood pressure Provider Name and Address Organization Details Last Updated DateTime 5 180.34 cm 31 kg/m2 467597. 51 g 83 /min 97 [degF] 95 % 95 % 120 mm[Hg] 68 mm[Hg] Tammy Patel [employer] 5 11:32:05 Date Recorded Body height Body mass index (BMI) Body weight Heart rate Oxygen saturation Oxygen saturation in Arterial blood by Pulse oximetry Systolic blood pressure Diastolic blood pressure Provider Name and Address Organization Details Last Updated DateTime 5 180.34 cm 31.2 kg/m2 150905. 69 g 80 /min 98 % 98 % 142 mm[Hg] 70 mm[Hg] Misti Ward CMA [employer] 5 17:02:07 Social History Question Answer Notes LastModified by Organizat ion Details LastModified Time Tobacco Smoking Status Never Smoker Not Available [facility] 10/24/2022 14:45:24 Do You Have An Advance Directive? No MIGRATION.67415 [id number] Information not available 10/24/2022 What Is Your Level Of Alcohol Consumption? None MIGRATION.11169 48786 Information not available 10/24/2022 Are You Blind Or Do You Have Difficulty Seeing? No MIGRATION.23317 09259 Information not available 10/24/2022 Are You Deaf Or Do You Have Serious Difficulty Hearing? Yes Has Hearing Aids That Doesn't Like MIGRATION.56459 31018 Information not available 10/24/2022 What Type Of Diet Are You Following? REGULAR MIGRATION.40687 04399 Information not available 10/24/2022 Have There Been Any Changes To Your Family Or Social Situation? No MIGRATION.75260 47232 Information not available 10/24/2022 What Is The Fluoride Status Of Your Home? Unknown MIGRATION.39128 31315 Information not available 10/24/2022 Do You Use Insect Repellent Routinely? No MIGRATION.67291 31316 Information not available 10/24/2022 Where Do You Live? [place] MIGRATION.64572 19806 Information not available 10/24/2022 Do You Have A Medical Power Of Ream Cutter? No MIGRATION.88936 18437 Information not available 10/24/2022 What Was The Date Of Your Most Recent Tobacco Screening? 12/08/2021 MIGRATION.69304 12389 Information not available 10/24/2022 Do You Have Any Pets? No MIGRATION.79655 85485 Information not available 10/24/2022 What Is Your Relationship Status? MIGRATION.61011 91904 Information not available 10/24/2022 Do You Use Your Seat Belt Or Car Seat Routinely? Yes MIGRATION.21032 45844 Information not available 10/24/2022 Do You Have Smoke And Carbon Monoxide Detectors In Your Home? Yes MIGRATION.46837 15212 Information not available 10/24/2022 Are You Passively Exposed To Smoke? No MIGRATION.67442 97436 Information not available 10/24/2022 Do You Use Sunscreen Routinely? No MIGRATION.52490 60430 Information not available 10/24/2022 Have You Recently Traveled Abroad? No MIGRATION.77310 12056 Information not available 10/24/2022 Do You Have Any Dietary Restrictions? No MIGRATION.82916 21017 Information not available 10/24/2022 Sex: Unknown Functional Status Question Answer Note LastModified by Organizat ion Details LastModified Time Do you have difficulty walking or climbing stairs? No MIGRATION.[id number] 026 Information not available 10/24/2022 Do you have transportation difficulties? No MIGRATION.6205103 026 Information not available 10/24/2022 Are you able to walk? YESWOREST MIGRATION.1570147 026 Information not available 10/24/2022 Do you have difficulty doing errands alone? No MIGRATION.0787212 026 Information not available 10/24/2022 Are you able to care for yourself? Yes MIGRATION.3797956 026 Information not available 10/24/2022 Do you have difficulty dressing or bathing? No MIGRATION.4967598 026 Information not available 10/24/2022 What is your exercise level? Occasional MIGRATION.8323006 026 Information not available 10/24/2022 Mental Status Question Answer Note LastModified by Organizat ion Details LastModified Time Do you have difficulty concentrating, remembering or making decisions? No MIGRATION.[id number] 6 Information not available 10/24/2022 Family History Relationship Description Onset Age of this Age Resolved Age Notes LastModified by Organization Details LastModified Time Father Heart disease MIGRATION.[id number] Not available 10/24/2022 14:45:40 Notes:Mother 85 hx [...] ARTERY DISEASE (CAD) N ADDICTION CONCERNS N Impotence N ENDOMETRIOSIS N USE OF BLOOD THINNERS N SKIN [...] APNEA N CHICKENPOX N INFECTIOUS DISEASE N PROSTATE N HEART ARRHYTHMIA N INSOMNIA N HIGH CHOLESTEROL / HYPERLIPIDEMIA N EYE PROBLEMS N HYPERTHYROIDISM N NEUROLOGICAL PROBLEMS N EDEMA N CHRONIC PAIN SYNDROME N HYPOTHYROIDISM N CONSTIPATION N CAROTID BLOCKAGE N BACK / NECK PROBLEMS N HAVE YOU BEEN HOSPITALIZED OR SEEN IN PSYCHIATRIC IN THE PAST YEAR ? N ATHEROSCLEROSIS N BREAST PROBLEMS N DIALYSIS N ECZEMA N OSTEOPOROSIS N ARTHRITIS Y NO SIGNIFICANT PAST MEDICAL HISTORY N APPENDICITIS N DIABETES, TYPE Y BAD TEETH N ENT N HEARTBURN / REFLUX N AUTISM SPECTRUM DISORDER (ASD) N HEPATITIS / LIVER DISEASE N PULMONARY DISEASE N GOUT N SLEEP DISORDER N ALZHEIMER'S DISEASE N Brain Problems N DEMENTIA N HERPES N SEIZURES/EPILEPSY N HEADACHES/MIGRAINES N VASCULAR DISEASE N PACEMAKER N Blood Disorder N DIZZINESS N HEART DISEASE/HEART PROBLEMS N KIDNEY DISEASE N MULTIPLE SCLEROSIS N CANCER: SPECIFY N CARDIAC ARRHYTHMIA N ANESTHESIA COMPLICATIONS N ATRIAL FIBRILLATION N Gall Stones N PULMONARY EMBOLISM N AUTOIMMUNE DISEASE N Immunizations Vaccine Type Date Status Note Provider Nam e and Address Organization Details Recorded Time SARS-COV-2 (COVID-19) vaccine, UNSPECIFIED 2 completed Not Available [facility] 09/05/2023 05:07:49 SARS-COV-2 (COVID-19) vaccine, UNSPECIFIED 1 completed Not Available [facility] 09/05/2023 05:07:49 SARS-COV-2 (COVID-19) vaccine, UNSPECIFIED 1 completed Not Available [facility] 09/05/2023 05:07:49 Past Encounters Encounter ID Performer Location Encounter Start Date Encounter Closed Date Diagnosis/Indication Diagnosis SNOMED-CT Code Diagnosis ICD10 Code Diagnosis Note [id number] [facility] Lien mitchell [address] [place] [address] 10/28/2020 00:00:00 10/28/2020 12:16:46 [id number] [facility] [address], [address] [address] 11/22/2020 00:00:00 11/22/2020 15:52:38 [id number] [facility] [place] [address] [place] [address], [address] [address] 11/30/2020 00:00:00 11/30/2020 12:12:08 [id number] [facility] [place] [address] [place] [address] Rd, [address] [address] 12/19/2020 00:00:00 12/21/2020 08:52:01 [id number] [facility] [place] [address] [place] [address], [address] [address] 01/02/2021 00:00:00 01/02/2021 14:01:47 [id number] [facility] Lien llelliott [address] [place] [address] 01/24/2021 00:00:00 01/24/2021 16:16:10 [id number] [facility] Lien wiseelliott [address] [place] [address] [place] [address] 04/21/2021 00:00:00 04/21/2021 15:36:20 [id number] [facility] Internal [facility] [place] [address] [place] [address] [place] [address] 08/11/2021 00:00:00 08/11/2021 11:15:44 [id number] [facility] Internal Med [place] llelliott [address] [place] [address] [place] [address] 12/08/2021 00:00:00 12/08/2021 11:54:26 [id number] [facility] Internal Med [place] llelliott [address] [place] [address] [place] [address] 03/30/2022 00:00:00 03/30/2022 10:50:16 [id number] [facility] Internal Med Lien llelliott [address] [place] [address] [place] [address] 06/26/2022 00:00:00 06/26/2022 16:30:32 [id number] Rodolfo Topete MD [facility] Internal Med [place] [address] [place] [address] [place] [address] 10/30/2022 15:57:53 10/30/2022 16:50:42 Essential hypertension 85956378 I10 Obstructiv e sleep apnea syndrome 00339897 G47.33 Pure hypercholesterolemia 308545004 E78.00 Type 2 brittney betes mellitus without complication 814836446 E11.9 Gastroesop hageal reflux disease 910410335 K21.9 Tinea pedis 5953344 B35. 3 [id number] Rodolfo Topete MD [facility] Internal Med [place] [address] [place] [address] [place] [address] 12/21/2022 15:23:07 12/21/2022 15:56:18 Adult health examination 423040001 Z00.00 Screening for disorder 069097301 Z13.9 Essential hypertension 99753264 I10 Pure hypercholesterolemia 132565898 E78.00 Type 2 brittney betes mellitus without complication 912742857 E11.9 Rheumatoid arthritis 698 25366 M06.9 Tinea pedis 1852696 B35. 3 [id number] Rodolfo Topete MD [facility] Internal Med [place] [address] [place] [address] [place] [address] 03/01/2023 15:54:41 03/01/2023 16:26:36 Essential hypertension 32765386 I10 Pure hypercholesterolemia 072747419 E78.00 Type 2 brittney betes mellitus without complication 863308366 E11.9 Rheumatoid arthritis 698 39573 M06.9 Nonalcohol ic steatohepatitis 935866619 K75.81 [id number] Rodolfo Topete MD [facility] Internal Med [place] [address] [place] [address] [place] [address] 05/31/2023 15:55:19 05/31/2023 16:42:23 Essential hypertension 44228785 I10 Pure hypercholesterolemia 774478862 E78.00 Type 2 brittney betes mellitus without complication 097479569 E11.9 Steatosis of liver 55907 1007 K76.0 Gastroesop hageal reflux disease 315004016 K21.9 [id number] Rodolfo Topete MD [facility] Internal Med [place] [address] [place] [address] [place] [address] 10/18/2023 15:55:46 10/18/2023 16:33:00 Essential hypertension 11544714 I10 Pure hypercholesterolemia 660833951 E78.00 Type 2 brittney betes mellitus without complication 794287895 E11.9 Rheumatoid arthritis 698 15122 M06.9 Disorder of prostate 302 83102 N42.9 [id number] Rodolfo Topete MD [facility] Internal Med Lien llelliott [address] [place] [address] [place] [address] 02/06/2024 11:52:19 02/06/2024 12:20:18 Essential hypertension 55237294 I10 Pure hypercholesterolemia 641450164 E78.00 Uncontroll ed type 2 diabetes mellitus 426983107 E11.65 Gastroesop hageal reflux disease 116935464 K21.9 Disorder of prostate 302 05929 N42.9 [id number] Rodolfo Topete MD [facility] [address] [facility] [place] [address] 06/04/2024 16:22:23 06/04/2024 16:58:38 Essential hypertension 60920966 I10 Gastroesop hageal reflux disease 443484370 K21.9 Pure hypercholesterolemia 758511661 E78.00 Type 2 brittney betes mellitus without complication 142015502 E11.9 Obese class I 5165925652 02576 E66.887 [id number] Rodolfo Topete MD [facility] Primary Care [facility] [address] [facility] [address] [place] [address] 10/08/2024 10:58:28 10/08/2024 12:06:39 Essential hypertension 99415727 I10 Pure hypercholesterolemia 015374635 E78.00 Type 2 brittney betes mellitus without complication 858995942 E11.9 Sleep apnea 87062010 G47 .30 Obese class I 3676581203 48034 E66.380 [id number] Rodolfo Topete MD [facility] Med [facility] [address] [facility] 24 [place] [address] 10/21/2024 16:52:11 10/21/2024 17:14:39 Chest wall pain 943652628 R07.89 Health Concerns Section Related Observation LastModified by Organization Detai ls LastModified Time None Recorded Concern Status LastModified by Organization Details LastModified Time None Recorded Advance Directives Directive N: Payers Encounter Date Sequence Insurance Name Policy Number Policy Ma Covered Member ID Ma Member ID Guarantor Name 10/18/2023 1 [facility] (MEDICARE REPLACEMENT/A DVANTAGE - PPO) [id number] Hunter Reid [id number] Hunter Reid 10/18/2023 2 [employer] - [facility] CHOICE PLUS (PPO) [id number] Hunter Reid [id number] Hunter Reid 02/06/2024 1 [facility] (MEDICARE REPLACEMENT/A DVANTAGE - PPO) [id number] Hunter Reid [id number] Hunter Reid 02/06/2024 2 [facility] CHOICE PLUS (PPO) [id number] Hunter Reid [id number] Hunter Reid 06/04/2024 1 [facility] (MEDICARE REPLACEMENT/A DVANTAGE - PPO) [id number] Hunter Reid [id number] Hunter Reid 10/08/2024 1 [facility] (MEDICARE REPLACEMENT/A DVANTAGE - PPO) [id number] Hunter Reid [id number] Hunter Reid 10/21/2024 1 [facility] (MEDICARE REPLACEMENT/A DVANTAGE - PPO) [id number] Hunter Reid [id number] Hunter Reid Notes Date Note Type Note Provider Name and Address Organization Details Recorded Time 10/18/2023 text/html Patient Name: Danny Roberts (michael)te Of Service: Saturday ( 10.18.2023 ): 1950 [...] and Systemic Symptoms:none Medication Reconciliation: by patient. Bwqdhvhailg73/25/2023: CPAP diet elevated 15.4 suggesting significant insulin [...] below. Physical activity status unchanged. Followed by Beef Ribber: No. Tolerating medications well. Medications currently consistent [...] Solostar Pen 10 Units Qd Vaccination and Dkacjkuotruf8163-19 Covid Booster Nwvwnb4553-05 Covid Pfizer Surgical Uncjyxg7758-84 Bilateral Rpuqzjnyu3293-52 Left Inguinal Hernia Preventative Testing Confirmed by Our Qtzoakp9306/06/2023 [facility]IC 9./06/2022 MICRO ALBUMIN 3.6 UG/ML N011/17/2021 ALBUMIN 4.5 G/DL N009/18/2021 PSA 2.1 NG/ML N1 COLONOSCOPY (5 YEARS) 610/ BQNOKQKJSHADZ94/19/2017 UPPER ENDOSCOPY Social HistoryDoes not smokeDrinks sociallyContur Family HistoryMother 85 hx of essential hypertension and CA of LungFather 90 CA prostate and esophagusNo brothers or sisters Rodolfo Topete MD [address] [facility] [facility] [address], [place], [address], [facility] [employer] 10/18/2023 16:24:42 02/06/2024 text/html Patient Name: [facility]ro) [facility] ( 02.06.2024 [facility] 1950 [...] Systemic Symptoms:none Medication Reconciliation: from medication list. Pqfkqdcpjtx86/25/2023: CPAP diet elevated 15.4 suggesting significant insulin [...] and instructed to make appointment with the director of orthopedics or brass finisher#4. GERD clinically stable currently taking pantoprazole and [...] Solostar Pen 10 Units Qd Vaccination and Rhmcysikfvgx6481-74 Covid Booster Abfkpj7902-52 Covid Pfizer Surgical Wxuoplv6192-42 Bilateral Lyrjlllow1032-63 Left Inguinal Hernia Preventative Yofayec5012/16/2023 LDCT 4/ MKHJXDUSL55/14/2024 COLONOSCOPY ( 5 YEARS ) 0 HAIC 9.408/06/2022 MICRO ALBUMIN 3.6 UG/ML N011/17/2021 ALBUMIN 4.5 G/DL N009/18/2021 PSA 2.1 NG/ML N1 AWIJXQJSXWGBK40/19/2017 UPPER ENDOSCOPY Social HistoryDoes not smokeDrinks Opara Family HistoryMother 85 hx of essential hypertension and CA of LungFather 90 CA prostate and esophagusNo brothers or sisters Rodolfo Topete MD [address] [facility] [facility] [address], [place], [address], [facility] [employer] 02/06/2024 12:18:34 06/04/2024 text/html Patient Name: Danny hurt Floracorona) HodgeDate Of Service: May ( 06.04.2024 ): 1950 [...] Systemic Symptoms:none Medication Reconciliation: from medication list. Ohzpiscsizn94/25/2023: CPAP diet elevated 15.4 suggesting significant insulin [...] offered to be evaluated and instructed by unix administrator on weight loss diet. Active Medication ListGlimepiride [...] Vaccination and Immunization( ) 2020- COVID PFIZER(X) 2021- COVID BOOSTER PFIZER Surgical Ptpnkph6017-48 Bilateral Nbdomvwoo7151-80 Left Inguinal Hernia Preventative Testing( ) 03/27/2024 Albumin 4.3 G/DL( ) 03/27/2024 PSA 1.3 NG/ML 03/27/2026( ) 12/16/2023 LDCT 12/15/2024( ) 12/10/2023 Optometry( ) 11/07/2023 Colonoscopy ( 5 Years ) 11/06/2028( ) 06/06/2023 HAIC 9.4( ) 04/05/2022 Micro Albumin 3.6 UG/ML N( ) 06/09/2021 Ophthalmology( ) 03/13/2017 Upper Endoscopy Social HistoryDoes not smokeDrinks Opara Family HistoryMother 85 hx of essential hypertension and CA of LungFather 90 CA prostate and esophagusNo brothers or sisters Rodolfo Topete MD [address] [facility] [address], [place], [address], [facility] [employer] 06/04/2024 16:48:58 10/08/2024 text/html Patient Name: [facility] crowpatricio Mercer [facility] September ( 10.08.2024 ): 1950 [...] Systemic Symptoms:none Medication Reconciliation: from medication list. Wzfkwhamtjx98/25/2023: CPAP diet elevated 15.4 suggesting significant insulin [...] nightly basis . Overall has shown considerable improvement.Whitt Sleepiness ScaleSitting and ReadinWatching TV: 1Sitting Inactive [...] offered to be evaluated and instructed by unix administrator on weight loss diet. Active Medication ListGlimepiride [...] Vaccination and Immunization( ) 2020- COVID PFIZER(X) 2021- COVID BOOSTER PFIZER Surgical Qfavqmv0339-33 Bilateral Kznvxrvrd9095-76 Left Inguinal Hernia Preventative Testing( ) 07/17/2024 Albumin 4.2 G/DL( ) 07/17/2024 HAIC 8.3 % H( ) 05/29/2024 CT Thorax( ) 03/27/2024 PSA 1.3 NG/ML 03/27/2026( ) 12/16/2023 LDCT 12/15/2024( ) 12/10/2023 Optometry( ) 11/07/2023 Colonoscopy ( 5 Years ) 11/06/2028( ) 04/05/2022 Micro Albumin 3.6 UG/ML N( ) 06/09/2021 Ophthalmology(X) 03/13/2017 Upper Endoscopy 03/13/2022 Social HistoryDoes not smokeDrinks Opara Family HistoryMother 85 hx of essential hypertension and CA of LungFather 90 CA prostate and esophagusNo brothers or sisters Rodolfo Topete MD [address] [facility] [address], [place], [address], [facility] [employer] 10/08/2024 11:53:46 10/21/2024 text/html Patient Name: Danny hurt matthewAbebe [facility]: Saturday ( 10.21.2024 ): 1950 Age: 74 There has been approximately a 2 lb weight gain since 10/08/2024. This represents approximately a .9% change in weight. Weight change attributable to lifestyle changes. Vital Signs:Blood Pressure: Sitting Rt. Arm 142/80Pulse: Sitting 80 /min and RegularRespiratory Rate: 16Height 71 in or 1.8 mWeight 224 lb or 101.6 kgBMI 31.2Pulse Oximetry: 98 % at rest on no oxygen Chief Complaint: Addressed in HPI Problems or conditions discussed in the HPI were the only ones reviewed during the encounter.Only social and family history addressed in the HPI were reviewed during this encounter. Attendant(s): NoneConstitutional and Systemic Symptoms:none Medication Reconciliation: from medication list. Eytldewnhgb65/25/2023: CPAP diet elevated 15.4 suggesting significant insulin [...] measuring up to 7 mm probably benign non contrast low-dose CT scan is recommended in six months. 05-29-2024: CT scan of the thorax showed stable pulmonary nodules as outlined in the text. No need for additional follow-up History of Present Illness #1. History of atypical chest pain. Began after multiple sneezes he noticed a sharp stabbing like pain up in the proportion of the sternum. Radiate through to the back. Not really associated with any shortness of breath was aggravated by inspiratory movements. Denies any hemoptysis. There was no other systemic symptoms he has had no pain or swelling in the lower extremities suggest the possibility of pulmonary emboli. This sounds like straight forward muscular strain as a result of a very hard sneezing. Went to the emergency EKG and blood work allegedly was negative. Otherwise is doing fine at this time. Still has some residual soreness and discomfort in the breast area.: Active Medication ListGlimepiride 2 MG TABLET One [...] COVID PFIZER(X) 2021-08 COVID BOOSTER PFIZER Surgical Flhilvr2199-21 Bilateral Vgyrcvoey0908-98 Left Inguinal Hernia Preventative Testing( ) 07/17/2024 Albumin 4.2 G/DL( ) 07/17/2024 HAIC 8.3 % H( ) 05/29/2024 CT Thorax( ) 03/27/2024 PSA 1.3 NG/ML 03/27/2026( ) 12/16/2023 LDCT 12/15/2024( ) 12/10/2023 Optometry( ) 11/07/2023 Colonoscopy ( 5 Years ) 11/06/2028( ) 04/05/2022 Micro Albumin 3.6 UG/ML N( ) 06/09/2021 Ophthalmology(X) 03/13/2017 Upper Endoscopy 03/13/2022 Social HistoryDoes not smokeDrinks Opara Family HistoryMother 85 hx of essential hypertension and CA of LungFather 90 CA prostate and esophagusNo brothers or sisters Rodolfo Topete MD [address] [facility] [address], [place], [address], [place] [facility] 10/21/2024 17:13:05
--- OUTSIDE RECORDS SUMMARY | 2024-12-08 14:38 | XMS_ITS | Clinical Summary ---
Author Organization [facility] Aravind Pete Address [address] [place] [address] Care Team Providers Care Valve Liner Rubber Name Role Phone Rodolfo Topete MD Primary Care Provider [phone] Allergies Active Allergy Reactions Criticality Noted Date [...] Encounters Date Type Department Care Team Description 12/01/2024 External Device Data [facility] ABSTRACTION Provider, Abstract 11/11/2024 External Device Data [facility] ABSTRACTION Provider, Abstract 11/02/2024 External Device Data [facility] ABSTRACTION Provider, Abstract 10/20/2024 External Device Data [facility] ABSTRACTION Provider, Abstract 09/17/2024 External Device Data [facility] ABSTRACTION Provider, Abstract 09/16/2024 External Device Data [facility] ABSTRACTION Provider, Abstract 09/15/2024 External Device Data [facility] ABSTRACTION Provider, Abstract from Last 3 Months Family History Medical [...] (1 - Tdap) 1969 PNEUMOCOCCAL VACCINE 50+ YEARS (1 of 2 - PCV) 07/29/19 [...] EXAM 01/29/2020 01/28/2019 INFLUENZA VACCINE (#1) 2024 Insurance [facility] [id number] Care Teams Valve Liner Rubber Relationship Specialty Start Date End Date Rodolfo Topete MD [address] [facility] [address] [place] [address] PCP - General Internal Medicine 12/10/22
--- OUTSIDE RECORDS SUMMARY | 2024-12-08 14:38 | XMS_ITS ---
Author Name Sohan Hansen Address [address] [place] [address] Phone [phone] [facility] ice Address [address] [place] [address] Phone [phone] Care Team Providers Care Personnel Assistant Name Role Phone Sohan Hansen Unavailable [phone] Jane Amador Unavailable [phone] Nicole Marinelli Unavailable [phone] Emilee Olivas Unavailable [phone] Functional Status Mental Status Allergies and Intolerances Medications Problems Reason for Referral Past Medical History
== END 2024-12-08 13:35 | disposition home or self-care (01) ==
PROVIDERS: PCP Internal Medicine; Visit Provider Physician Assistant
DX: R91.8 Other nonspecific abnormal finding of lung field (principal); R91.1 Solitary pulmonary nodule
CPT/HCPCS: 71250